=== PATIENT | female | born 1965 | race Caucasian/White ===

== ENCOUNTER 2016-05-15 12:17 | Emergency (ER) | payer MEDICARE, MEDICAID ==
[~2016-05-15 12:17] MED LIST: ADDERALL 30 MG30 MG PO; ALDACTONE100 MG PO; ALDACTONE25 MG PO; ATIVAN1 MG PO; BAYER CHEWABLE81 MG PO; BUPROPION XL150 MG PO; BUPROPION XL300 MG PO; BYSTOLIC2.5 MG PO; HUMIRA; HUMULIN R100 U/ML SC; HUMULIN R100 U/ML SQ; HYDROCODON-ACE1 EAC7 PO; ISOSORBIDE MONO30 M1 PO; LASIX20 MG PO; LEVEMIR100 U/M1 SQ; LIORESAL 10 MG10 MG PO; MEDROL DOSE PACK4 MG; MUPIROCIN22 GM TOPICAL; NOVOLOG100 U/M1 SQ; PHENERGAN25 M1 PO; PLAVIX75 MG PO; PROVENTIL HFA6.7 GM INH; ROBITUSSIN100 MG/5 M PO; TESSALON200 MG PO; TOUJEO SOL300 UNIT/1 SC; TREXALL5 MG PO; VICTOZA0.6 MG/0.1 SQ; ZITHROMAX TRI-500 MG; ZOFRAN4 MG PO; ZOFRAN8 MG PO
[2016-05-15 13:44] LABS: APPEARANCE CLOUDY (CLEAR); BILIRUBIN NEGATIVE (NEGATIVE); COLOR STRAW (YELLOW); GLUCOSE NEGATIVE (NEGATIVE); KETONE NEGATIVE (NEGATIVE); LEUKOCYTE ESTERASE 2+ (NEGATIVE); NITRITE NEGATIVE (NEGATIVE); PROTEIN TRACE mg/dL (NEGATIVE); UROBILINOGEN NORMAL (NORMAL)
[2016-05-15 13:59] LABS: BACTERIA MODERATE /hpf (NONE SEEN); EPITHELIAL CELLS 0-5 /hpf (0-5); RED CELLS - URINE 0-5 /hpf (0-5)
== END 2016-05-15 17:33 | disposition home or self-care (01) ==
LOC: D.ER 12:17
PROVIDERS: Emergency Medicine; Physician Assistant Medical
DX: Z48.00 Encounter for change or removal of nonsurgical wound dressing (principal); N39.0 Urinary tract infection, site not specified; I10 Essential (primary) hypertension; E11.9 Type 2 diabetes mellitus without complications; Z79.4 Long term (current) use of insulin; Z95.0 Presence of cardiac pacemaker

== ENCOUNTER 2016-09-05 13:51 | Emergency (ER) | payer MEDICARE, MEDICAID ==
[2016-09-05 15:30] LABS: BASOPHILS 0.3 % (0-2); EOSINOPHILS 1.1 % (0-7); HEMOGLOBIN 14.4 g/dL (12-16); IMMATURE GRANULOCYTES 0.7 % (0-5); MCH 29.9 pg (26.0-34.0); MCHC 33.5 g/dL (31.0-37.0); MCV 89.4 fL (80.0-100.0); MEAN PLATELET VOLUME 9.8 fL (7.4-10.4); MONOCYTES 6.2 % (2-11); NEUTROPHILS 55.7 % (40-80); PLATELET COUNT 183 10x3/uL (130-400); RBC 4.81 10x6/uL (4.00-5.40); RDW 13.6 % (11.5-14.5); WBC 8.7 10x3/uL (4.8-10.8)
[2016-09-05 16:08] LABS: ALBUMIN 3.5 g/dL (3.4-5.0); ALT (SGPT) 47 U/L (10-68); BILIRUBIN - TOTAL 0.63 mg/dL (0.2-1.3); CARBON DIOXIDE 23.4 mmol/L (21.0-32.0); CHLORIDE - SERUM 101 mmol/L (98-107); POTASSIUM - SERUM 3.9 mmol/L (3.5-5.1); PROTEIN - SERUM 7.2 g/dL (6.4-8.2); SODIUM 140 mmol/L (136-145)
[2016-09-05 16:18] LABS: APPEARANCE HAZY (CLEAR); BILIRUBIN NEGATIVE (NEGATIVE); COLOR YELLOW (YELLOW); GLUCOSE NEGATIVE (NEGATIVE); KETONE NEGATIVE (NEGATIVE); LEUKOCYTE ESTERASE 1+ (NEGATIVE); NITRITE POSITIVE (NEGATIVE); PROTEIN NEGATIVE (NEGATIVE); SPECIFIC GRAVITY 1.015 (1.005-1.020); UROBILINOGEN NORMAL (NORMAL)
[2016-09-05 16:20] LABS: WHITE CELLS - URINE 25-50 /hpf (0-5)
[2016-09-05 16:21] LABS: BACTERIA MANY /hpf (NONE SEEN)
[2016-09-05 16:35] LABS: ALKALINE PHOSPHATASE 98 U/L (46-116); CREATININE - SERUM 0.8 mg/dL (0.6-1.3); eGFR NON AFRICAN AMERICAN 79 mL/min (90-120)
[2016-09-05 16:38] LABS: GLUCOSE 251 mg/dL (74-106)
[2016-09-05 16:44] LABS: CALC OSMOLALITY 285 mosm/kg (275-300); UREA NITROGEN 11 mg/dL (7-18)
== END 2016-09-05 18:13 | disposition home or self-care (01) ==
LOC: D.ER 13:51
PROVIDERS: Emergency Medicine
DX: N39.0 Urinary tract infection, site not specified (principal); I10 Essential (primary) hypertension; E11.9 Type 2 diabetes mellitus without complications; Z79.4 Long term (current) use of insulin; Z95.0 Presence of cardiac pacemaker

== ENCOUNTER 2016-10-06 06:13 | Observation (INO) | payer MEDICARE, MEDICAID ==
--- NOTE | ~2016-10-06 | CN ---
PATIENT NAME:DIVYA PITT MEDICAL RECORD: [id number] : 61 LOCATION:TC.CL01 ADMIT DATE: 10/06/16 ACCOUNT: [id number] CONSULTING PHYSICIAN: AZEEM MARTINEZ MD REFERRING PHYSICIAN: AZEEM MARTINEZ MD DATE OF CONSULTATION: 10/06/2016 Cardiology Consultation ADMITTING DIAGNOSES: 1. Unstable angina. 2. Coronary artery disease. 3. Previous multivessel percutaneous transluminal coronary angioplasty stent. 4. Hypertension. 5. Hyperlipidemia. HISTORY OF PRESENT ILLNESS: Mrs. Meeks presents with chest pain that awoke her just like that of her previous angina. She has a history of coronary artery disease, multivessel PTCA stent, last stenting procedure was undertaken in January of last year. She has been pain-free until today. Her chest pain was initially 7/10. She has received multiple sublingual nitro and some morphine. She continues to have the chest pain. PHYSICAL EXAMINATION: GENERAL APPEARANCE: Well-nourished, well-developed, appears stated age. Level of distress, comfortable. PSYCHIATRIC: Mental status, alert, normal affect. Orientation, oriented to time, place and person. EYES: Lids and conjunctiva, noninjected. No discharge, no pallor. ENT: Lips, teeth, gums, normal dentition. Oropharynx, no cyanosis, no pallor. NECK: Carotid arteries, bilateral normal upstroke, no bruits, no thrills. JUGULAR VEINS: No jugular venous pressure or distention. CERVICAL LYMPH NODES: Nontender, nonenlarged. THYROID: Not enlarged. Nontender. No nodules. LUNGS: Respiratory effort, unlabored. CHEST: Normal curvature. No thoracic deformity. No chest wall tenderness. Percussion, resonant. Auscultation, clear. No wheezes, no rales, no rhonchi. CARDIOVASCULAR: Precordial exam, nondisplaced. No heaves or pericardial thrills. Rate and rhythm, regular. Heart sounds, normal S1, normal S2. No S3, no gallop, no rub. Systolic murmur, not heard. Diastolic murmur, not heard. EXTREMITIES: No cyanosis, no edema. Peripheral pulses, full and equal in all extremities, except as noted. No bruits appreciated. ABDOMEN: Soft, nondistended. Normal aorta. No bruit. Nontender. No masses. Liver, nontender, no hepatomegaly. Spleen, nontender, no splenomegaly. MUSCULOSKELETAL: No joint tenderness. No joint swelling. No erythema. NEUROLOGICAL: Normal gait, normal strength, normal tone. SKIN: Warm and dry. REVIEW OF SYSTEMS: The patient reports easy bruising but reports no swollen glands. The patient reports no fever, no night sweats, no significant weight gain, no significant weight loss. No significant exercise tolerance. The patient reports no dry eyes, no irritation, no vision change. Patient reports no difficulty hearing and no ear pain. Patient reports no frequent nose bleeds or nose and sinus problems. Patient reports on arm pain on exertion. No shortness of breath while lying down. No history of heart murmur. Patient CONSULT REPORT [id number] DIVYA PITT reports no cough, no wheezing or coughing up blood. Patient reports no abdominal pain, no vomiting. Normal appetite. No diarrhea and not vomiting blood. No nausea and no constipation. Patient reports no incontinence. No difficulty urinating. No hematuria. No increased frequency. Patient reports no muscle aches. No weakness, no arthralgias, no back pain. No swelling of the extremities. Patient reports no abnormal mole, no jaundice, no rashes. Reports no loss of consciousness. No weakness and no numbness. No seizures, dizziness, or headaches. The patient reports no depression, no sleep disturbance, feeling safe in a relationship and no alcohol abuse. Patient reports on fatigue. Reports no runny nose or sinus pressure. No itching, no hives, and no frequent sneezing. OVERALL IMPRESSION: Unstable angina. We will proceed with coronary angiography. Further care depends upon the findings of the angiography. TRANSINT:[id number] Voice Confirmation ID: [id number] DOCUMENT ID: [id number] AZEEM MARTINEZ MD CC: [id number] DICTATION DATE: 10/06/16 1139 REGIONAL BUSINESS DEVELOPMENT MANAGER: 10/06/16 1805 ADM IN [place] [id number] [place] [address]
--- NOTE | ~2016-10-06 | OP ---
PATIENT NAME: DIVYA PITT MEDICAL RECORD: [id number] :61 LOCATION:UmbertoZAK UmbertoCL01 ADMISSION DATE:10/06/16 SURGEON: AZEEM MARTINEZ MD OPERATION DATE: 10/06/16 DATE OF OPERATION: 10/06/2016 PROCEDURES: 1. PTCA stent LAD. 2. Intravascular ultrasound of the LAD. 3. Left heart catheterization. 4. Selective coronary angiography. 5. Left ventriculogram. INDICATION: Unstable angina. PROCEDURE IN DETAIL: After informed consent was obtained and after detailed explanation of risks, benefits as well as alternative therapies, the patient elected to proceed with angiogram and angioplasty. The right femoral area was prepped and draped in normal sterile fashion. The right femoral artery was cannulated via modified Seldinger technique with placement of 6-Amharic sheath. All catheters exchanged through this sheath. FINDINGS: The left ventriculogram was performed in standard 30-degree LARSEN view, reveals good cardiac wall motion throughout all segments. Overall ejection fraction estimated 60%. SELECTIVE CORONARY ANGIOGRAPHY: 1. Left main showed no significant angiographic disease. 2. Left anterior descending has previously placed stents with up to 75% in-stent restenosis in the mid vessel. 3. Left circumflex shows moderate irregularities, but no flow-limiting stenosis. 4. Right coronary has moderate irregularities, but no flow-limiting stenosis. PTCA STENT OF THE LEFT ANTERIOR DESCENDING: The stent used is a 2.5 x 18 mm [place] taken to 17 atmospheres. Result was 0% residual stenosis. OVERALL IMPRESSION: Successful percutaneous transluminal coronary angioplasty stent of the left anterior descending going from 75% initial stenosis to 0% residual stenosis. TRANSINT:[id number] Voice Confirmation ID: [id number] DOCUMENT ID: [id number] AZEEM MARTINEZ MD CC: [id number] DICTATION DATE: 10/06/16 1142 CIVIL ENGINEER IN TRAINING: 10/06/16 1827 ADM IN [id number] [place] [address]
--- NOTE | ~2016-10-06 | HEMODYNAMI ---
PATIENT:DIVYA PITT MEDICAL RECORD: [id number] : 61 LOCATION:[address] [facility]# [id number] ADMISSION DATE: 10/06/16 Generatedon:10/06/201611:41 Patient name: DIVYA PITT Patient #: [id number] : 1965 Date of study: 10/06/2016 Page: Of Hemodynamic Procedure Report Patient Data Patient Demographics Procedure consent was obtained First Name: DIVYA Gender: Female Last Name: YOANDY : 1965 Middle Initial: SOPHY Age: 51 year(s) Patient #: [id number] Race: SSN: [id number] Additional ID: [id number] Contact details [address]: [address] [place] [address] State: [place] City: [place] Zip code: [address] Past Medical History Allergies Allergen Reaction Date Comments Reported Other allergy 06/11/2014 Apple Juice, ASA, Motrin, Geodon, Anti-inflammatories, Depakote, Augmentin Other allergy 02/18/2016 Aspirin, Geodon, Ibuprofen, Steroids, Depakote Admission Admission Data Admission Date: 10/06/2016 Admission Time: 8:11 Room #: 2127 Procedure Procedure Types Cath Procedure Diagnostic Procedure [facility] w/Coronaries FFR/IVUS Intra-Coronary IVUS Initial PCI Procedure Coronary Stent Initial Miscellaneous Procedures Moderate Sedation up to 30 minutes Procedure Description Procedure Date Procedure Date: 10/06/2016 Procedure Start Time: 11:15 Procedure Staff Name Function Dilan Pisano MD Performing Physician Cornelio Weeks RT Monitor Yousif Nunn RT Scrub Mat Whitehead RN Nurse Procedure Data Cath Procedure Fluoroscopy Diagnostic fluoroscopy Total fluoroscopy Time: 3.9 time: 3.9 min min Diagnostic fluoroscopy Total fluoroscopy dose: dose: 316.02 mGy 316.02 mGy Contrast Material Contrast Material Type Amount (ml) Isovue 300 122 Entry Location Entry Primary Successful Side Size Upsize Upsize Entry Closure Succes sful Closure Location (Fr) 1 (Fr) 2 (Fr) Remarks Device Remarks Femoral Right 5 Fr 6 Fr Exoseal artery Short Diagnostic catheters Device Type Used For End Catheter Placement Cordis 5Fr Pigtail Left Coronary Catheter (MP) Angiography Cordis 5Fr JL 4.0 Left Coronary Catheter (MP) Angiography Cordis 5Fr 3DRC Catheter Right Coronary (MP) Angiography Procedure Medications Medication Administration Route Dosage Oxygen NC 2 l/min Heparin Flush Bag added to field 2 bags (1000units/500ml NS) 0.9% NaCl I.V. 100 ml/hr Fentanyl I.V. 50 mcg Versed I.V. 1 mg Fentanyl I.V. 50 mcg Heparin Bolus I.V. 4000 units Integrilin (Bolus I.V. 6.2 ml 2mg/ml) Integrilin (Bolus wasted 3.8 ml 2mg/ml) Hemodynamics Rest Heart Rate: 97 (bpm) Snapshots Pre Cath Intra NCS Post Cath Vital Signs Time Heart Resp SPO2 NIBP (mmHg) Rhythm Pain Sedation Rate (ipm) (%) Status Level (bpm) 11:07:32 97 17 92 152/95(118) NSR 0 (11) 10(A) , No pain 11:11:46 94 15 92 138/83(111) NSR 0 (11) 10(A) , No pain 11:15:58 99 19 94 138/88(113) NSR 0 (11) 10(A) , No pain 11:20:12 104 19 74 134/81(118) NSR 0 (11) 9(A) , No pain 11:24:16 106 18 75 132/86(108) NSR 0 (11) 9(A) , No pain 11:28:24 104 18 97 145/92(119) NSR 0 (11) 9(A) , No pain 11:32:38 102 17 98 151/84(115) NSR 0 (11) 9(A) , No pain 11:36:42 105 18 98 131/86(110) NSR 0 (11) 9(A) , No pain 11:39:09 103 17 99 138/87(110) NSR 0 (11) 9(A) , No pain Medications Time Medication Route Dose Verified Delivered Reason Notes Effectiveness by by 11:07:41 Oxygen NC 2 Mat Rivero Per physician l/min Ventura Whitehead RN RN 11:07:54 Heparin Flush added 2 Mat Mat used for Bag to bags Ventura Whitehead RN procedure (1000units/500ml field RN NS) 11:08:08 0.9% NaCl I.V. 100 Mat Mat Per physician ml/hr Ventura Whitehead RN RN 11:15:35 Fentanyl I.V. 50 Mat Mat for sedation mcg Ventura Whitehead RN RN 11:15:41 Versed I.V. 1 mg Mat Mat for sedation Ventura Whitehead RN RN 11:29:09 Fentanyl I.V. 50 Mat Mat for sedation mcg Ventura Whitehead RN RN 11:33:42 Heparin Bolus I.V. 4000 Mat Mat for units Ventura Whitehead RN anticoagulation RN 11:33:58 Integrilin I.V. 6.2 Mat Mat for (Bolus 2mg/ml) ml Ventura Whitehead RN antiplatelet RN therapy 11:34:11 Integrilin wasted 3.8 Mat Mat for (Bolus 2mg/ml) ml Ventura Whitehead RN antiplatelet RN therapy Procedure Log Time Note 10:40:44 Cornelio Weeks RT (R) (CV) sent for patient. Start room use. 10:57:06 Time tracking: Regular hours 10:57:11 Plan of Care:Hemodynamics will remain stable., Cardiac rhythm will remain stable., Comfort level will be maintained., Respiratory function will remain adequate., Patient/ family verbilizes understanding of procedure., Procedure tolerated without complication., Recovers from procedure without complications.. 10:57:18 Patient received from ED to CCL 3 Alert and oriented. Tansferred to table in Supine position. 10:57:19 Warm blankets applied, and isidra hugger turned on for patient comfort. 10:57:25 Correct patient and procedure confirmed by team. 10:57:27 Signed procedure consent form obtained from patient. 10:57:38 ECG and BP/O2 sat monitors applied to patient. 10:57:54 Full Disclosure recording started 10:57:55 - 10:58:01 H&P Date Dictated: 10/06/2016 Emergent; H&P N/A. 10:58:01 Pre-procedure instructions explained to patient. 10:58:02 Pre-op teaching completed and patient verbalized understanding. 10:58:03 Family in waiting room. 10:58:13 Patient NPO since Midnight. 10:58:18 Is the patient allergic to Iodine/contrast media? No. 10:58:20 Is patient on blood thinner?Yes 10:58:23 ACC The patient was administered the following blood thiners within the last 24 hours: ACCPlavix 10:58:25 Patient diabetic? No. 10:58:26 - 10:58:27 ----Pre-sedation anethsthesia assessment.---- 10:58:29 Previous problem with sedation/anesthesia? No ? 10:58:30 Snore? Yes 10:58:31 Sleep apnea? Yes 10:58:32 Deviated septum? No 10:58:34 Opens mouth fully? Yes 10:58:35 Sticks out tongue? Yes 11:03:02 Airway obstruction? Yes asthma 11:03:05 - 11:03:07 Pre procedure: right dorsailis pedis pulse Doppler 11:03:11 Sharps counted by scrub and verified by Cheryle 11:03:11 Alarms reviewed by Cleve Li 11:03:15 Right groin area was prepped with chlora-prep and draped in sterile fashion 11:03:21 Use device set Femoral Dx 11:03:23 Acist Syringe opened to sterile field. 11:03:23 Bag Decanter opened to sterile field. 11:03:24 Medline Cath Pack opened to sterile field. 11::24 Terumo 5Fr Rumney Sheath opened to sterile field. 11:03:25 St Zana 260cm J .035 wire opened to sterile field. 11::27 Acist Hand Control opened to sterile field. 11:: Acist Manifold opened to sterile field. 11:03:28 Diagnostic Infinity 5Fr Multipack catheter opened to sterile field. 11::28 Tegaderm 4 x 4 opened to sterile field. 11:06:33 Vital chart was started 11:07:41 Oxygen 2 l/min NC was administered by Mat Whitehead RN; Per physician; 11:07:54 Heparin Flush Bag (1000units/500ml NS) 2 bags added to field was administered by Mat Whitehead RN; used for procedure; 11:08:08 0.9% NaCl 100 ml/hr I.V. was administered by Mat Whitehead RN; Per physician; 11:08:12 Baseline sample Acquired. 11:08:16 Rhythm: sinus rhythm 11:10:08 IV patent on arrival in port with 0.9% NaCl at [facility]. 11:14:27 Physician arrived 11::28 --------ALL STOP TIME OUT------ 11:14:28 Final Timeout: patient, procedure, and site verified with staff and physician. All members of the team are in agreement. 11:14:30 Right groin site verified by team. 11:14:33 Physical assessment completed. ASA score P 2 - A patient with mild systemic disease as per Dilan Pisano MD. 11:14:36 Sedation plan: IV Moderate Sedation Versed, Fentanyl 11:15:02 Procedure started. 11:15:35 Fentanyl 50 mcg I.V. was administered by Mat Whitehead RN; for sedation ; 11:15:41 Versed 1 mg I.V. was administered by Mat Whitehead RN; for sedation; 11:15:57 Local anesthetic to right femoral artery with Lidocaine 2% by Dilan Pisano MD.INITIAL ACCESS ONLY 11:16:10 A 5 Fr sheath was inserted into the Right Femoral artery 11:18:53 Zero performed for pressure channel P1 11:19:04 Zero performed for pressure channel P1 11:20:43 A Cordis 5Fr Pigtail Catheter (MP) was advanced over the wire and used for Left Coronary Angiography. 11:22:22 LV angiography performed. 11:23:39 Catheter removed. 11:25:14 A Cordis 5Fr JL 4.0 Catheter (MP) was advanced over the wire and used for Left Coronary Angiography. 11:25:51 LCA angiography performed. 11:26:09 Sheath upsized to a 6 Fr Short. 11:26:30 Terumo 6Fr Rumney Sheath opened to sterile field. 11:26:31 Venaxis BasixCompak Inflation Kit opened to sterile field. 11:26:32 Ron Whisper J 300cm 0.014 guide wire opened to sterile field. 11:26:38 A Cordis 5Fr 3DRC Catheter (MP) was advanced over the wire and used for Right Coronary Angiography. 11:26:43 RCA angiography performed. 11:27:47 [place] IVUS Catheter opened to sterile field. 11:28:33 Cordis 6FR XBLAD 3.5 guide catheter opened to sterile field. 11:28:44 6 Fr xbad 3.5 guide catheter was inserted over the wire 11:29:05 whisper wire advanced. 11:29:09 Fentanyl 50 mcg I.V. was administered by Mat Whitehead RN; for sedation ; :29:26 Procedure type changed to Cath procedure, Diagnostic procedure, LHC, LH C w/Coronaries, FFR/IVUS, Intra-Coronary IVUS Initial, PCI procedure, Coronary Stent Initial, Miscellaneous Procedures, Moderate Sedation up to 30 minutes 11:33:42 Heparin Bolus 4000 units I.V. was administered by Mat Whitehead RN; for anticoagulation; 11:33:58 Integrilin (Bolus 2mg/ml) 6.2 ml I.V. was administered by Mat Whitehead RN; for antiplatelet therapy; 11:34:11 Integrilin (Bolus 2mg/ml) 3.8 ml wasted was administered by Mat Whitehead RN; for antiplatelet therapy; :34:36 Inflation Number: 1 A Amoret OTW 2.5 x 18 stent was prepped and advanced across the Mid LAD. The stent was deployed at 17 RENNY for 0:11 (min:sec). 11:36:36 Cordis 6Fr Exoseal opened to sterile field. 11:36:46 Sheath removed intact; hemostasis achieved with Exoseal to the Right Femoral artery. 11:36:49 Procedure ended.(Physican Out) 11:37:34 Fluoroscopy time 03.90 minutes. 11:37:38 Fluoroscopy dose: 316.02 mGy 11:37:38 Flurop Dose total: 316.02 11:37:43 Contrast amount:Isovue 300 122ml. 11:37:44 Sharps counted by scrub and verified by R.N. 11:37:46 Insertion/operative site no bleeding no hematoma. 11:37:50 Post-op/insertion site Right Femoral artery dressed using a 4 x 4 and Tegaderm. 11:37:55 Post right femoral artery:stable 11:37:56 Post Procedure Pulses reassessed and unchanged 11:38:02 Post-procedure physical assessment completed. ASA score P 2 - A patient with mild systemic disease as per Dilan Pisano MD. 11:38:05 Post procedure rhythm: unchanged. 11:38:07 Post procedure instruction explained to patient.Patient verbalizes understanding. 11:38:08 Procedure and supply charges have been captured, reviewed, submitted an d are correct. 11:41:05 Report given to Pre/Post Procedure Room. 11:41:10 Patient transfered to Pre/Post Procedure Room with Stretcher. 11:41:36 Vital chart was stopped Intervention Summary Intervention Notes Time ActionType Lesion and Equipment Action# Pressure Duration Attributes Used 11:34:36 Place stent Mid LAD Amoret OTW 1 17 00:11 2.5 x 18 stent Device Usage Item Name Manufacture Quantity Catalog Hospital Part Current Minimal Lot# / Number Charge Number Stock Stock Serial# Code Acist Acist 1 72318 740013 436380 989418 20 Syringe Medical Systems InVasc Therapeutics Bag Microtek 1 2002S 642688 05605 215356 5 DecSenex [employer] Inc. Medline Cardinal 1 [id number] 078695 71263 987786 5 Cath Brainsgate Terumo 5Fr Terumo 1 [id number] 197602 767057 991240 [address] Z[address] St Zana 1 629019 560809 163430 678577 30 260cm J .035 wire Acist Hand Acist 1 83896 532804 615351 658365 5 Control Medical Systems Inc Acist Acist 1 90033 403102 766263 313154 5 Manifold Medical Systems Inc Diagnostic Cardinal 1 [id number] 773089 30412 010655 30 Infinity Health 5Fr Multipack catheter Tegaderm 4 3M 1 1626W 877078 999492 351677 5 x 4 Cordis 5Fr Cardinal 1 222213 5 Pigtail Health Catheter (MP) Cordis 5Fr Cardinal 1 827661 5 JL 4.0 Health Catheter (MP) Terumo 6Fr Terumo 1 [id number] 145943 112352 466239 40 Rumney Sheath Merit Merit 1 [id number] 080272 472606 845779 15 CertiVox Medical Inflation Kit Ron Ron 1 [id number] 357497 388708 805451 5 Whisper J Vascular 300cm 0.014 guide wire Cordis 5Fr Cardinal 1 595841 5 3DRC Health Catheter (MP) [place] 1 [id number] 190666 007161 374264 8 [place] IVUS Catheter Cordis 6FR Cardinal 1 [id number] 708225 311352 767756 10 XBLAD 3.5 Health guide catheter Amoret OTW Medtronic 1 [id number] 238933 06225 683096 5 [id number] 2.5 x 18 stent Cordis 6Fr Cardinal 1 EX600 231718 430281 597187 10 [id number] [facility] Health Signature Audit [place] Stage Time Signature Unsigned Intra-Procedure 10/06/2016 Cornelio 11:41:33 AM Shuffield RT (R) (CV) Signatures Monitor : Cornelio Signature : Dbield RT Date : Time : [facility] [address] [place] [address]
[2016-10-06 06:55] LABS: BASOPHILS 0.2 % (0-2); EOSINOPHILS 1.4 % (0-7); HEMATOCRIT 40.7 % (36.0-48.0); HEMOGLOBIN 13.5 g/dL (12-16); IMMATURE GRANULOCYTES 0.5 % (0-5); LYMPHOCYTES 19.5 % (15-50); MCH 29.8 pg (26.0-34.0); MCHC 33.2 g/dL (31.0-37.0); MCV 89.8 fL (80.0-100.0); MEAN PLATELET VOLUME 9.2 fL (7.4-10.4); MONOCYTES 7.3 % (2-11); NEUTROPHILS 71.1 % (40-80); PLATELET COUNT 159 10x3/uL (130-400); RBC 4.53 10x6/uL (4.00-5.40); RDW 13.9 % (11.5-14.5); WBC 8.1 10x3/uL (4.8-10.8)
[2016-10-06 07:12] LABS: ALBUMIN 3.4 g/dL (3.4-5.0); ALKALINE PHOSPHATASE 83 U/L (46-116); ALT (SGPT) 59 U/L (10-68); BILIRUBIN - TOTAL 0.75 mg/dL (0.2-1.3); CALCIUM 8.4 mg/dL (8.5-10.1); CARBON DIOXIDE 27.6 mmol/L (21.0-32.0); CHLORIDE - SERUM 104 mmol/L (98-107); CREATININE - SERUM 0.5 mg/dL (0.6-1.3); SODIUM 140 mmol/L (136-145); UREA NITROGEN 12 mg/dL (7-18); eGFR NON AFRICAN AMERICAN > 90 mL/min (90-120)
[2016-10-06 07:15] LABS: CKMB 1.1 U/L (0.0-3.6); CREATINE KINASE 59 UL (21-215)
[2016-10-06 07:25] LABS: CALC OSMOLALITY 283 mosm/kg (275-300); GLUCOSE 196 mg/dL (74-106); TROPONIN-I < 0.017 ng/mL (0.000-0.060)
[2016-10-06] MEDS ORDERED: PLAVIX75 MG PO (12:15)
--- NOTE | 2016-10-06 12:15 | NUR ---
RESTING, AT SIDE, RIGHT GROIN CDI, NO HEMATOMA OR BLEEDING AT SITE
--- NOTE | 2016-10-06 12:45 | NUR ---
NO CHANGE IN RIGHT GROIN, REMAINS AT SIDE, DENIES CHEST PAIN
== END 2016-10-06 16:00 | disposition home or self-care (01) ==
LOC: D.ER 06:13 → D.M2 08:11 → D.CLR 08:11 → OBSVTIME 08:11 → D.CLR 16:00
PROVIDERS: Emergency Medicine; ADMIT Internal Medicine Interventional Cardiology
DX: I25.110 Atherosclerotic heart disease of native coronary artery with unstable angina pectoris (principal); I11.9 Hypertensive heart disease without heart failure; E78.5 Hyperlipidemia, unspecified; T82.855A Stenosis of coronary artery stent, initial encounter; Y84.0 Cardiac catheterization as the cause of abnormal reaction of the patient, or of later complication, without mention of misadventure at the time of the procedure
CPT/HCPCS: 93458; 92978; C9600

== ENCOUNTER 2016-10-07 23:32 | Emergency (ER) | payer MEDICARE, MEDICAID ==
[2016-10-08 00:13] LABS: HEMATOCRIT 38.5 % (36.0-48.0); HEMOGLOBIN 13.3 g/dL (12-16); LYMPHOCYTES 30.9 % (15-50); MCH 30.2 pg (26.0-34.0); MCHC 34.5 g/dL (31.0-37.0); MCV 87.5 fL (80.0-100.0); MEAN PLATELET VOLUME 8.5 fL (7.4-10.4); NEUTROPHILS 60.9 % (40-80); PLATELET COUNT 169 10x3/uL (130-400); RDW 13.5 % (11.5-14.5); WBC 8.2 10x3/uL (4.8-10.8)
[2016-10-08 00:31] LABS: ALBUMIN 3.4 g/dL (3.4-5.0); ALKALINE PHOSPHATASE 84 U/L (46-116); ALT (SGPT) 57 U/L (10-68); BILIRUBIN - TOTAL 0.74 mg/dL (0.2-1.3); CALCIUM 8.8 mg/dL (8.5-10.1); CARBON DIOXIDE 26.3 mmol/L (21.0-32.0); CHLORIDE - SERUM 103 mmol/L (98-107); CREATININE - SERUM 0.5 mg/dL (0.6-1.3); GLUCOSE 160 mg/dL (74-106); POTASSIUM - SERUM 3.9 mmol/L (3.5-5.1); PROTEIN - SERUM 7.5 g/dL (6.4-8.2); SODIUM 139 mmol/L (136-145); eGFR NON AFRICAN AMERICAN > 90 mL/min (90-120)
[2016-10-08 00:33] LABS: CALC OSMOLALITY 278 mosm/kg (275-300); CREATINE KINASE 72 UL (21-215); UREA NITROGEN 8 mg/dL (7-18)
[2016-10-08 00:34] LABS: TROPONIN-I < 0.017 ng/mL (0.000-0.060)
== END 2016-10-08 02:08 | disposition home or self-care (01) ==
LOC: D.ER 23:32
PROVIDERS: Family Medicine
DX: E66.9 Obesity, unspecified (principal); M79.1 Myalgia; J02.9 Acute pharyngitis, unspecified

== ENCOUNTER → 2016-11-28 18:32 | Outpatient (CLI) | payer MEDICARE, MEDICAID ==
[2016-11-30 07:25] LABS: PROLACTIN 6.5 ng/mL (4.8-23.3)
[2016-11-30 10:15] LABS: ACTH 6.8 pg/mL (7.2-63.3); HEPATITIS C ANTIBODY <0.1 (0.0-0.9)
== END | disposition home or self-care (01) ==
LOC: D.LABREF 18:32
PROVIDERS: Family Medicine
DX: E24.9 Cushing's syndrome, unspecified (principal); Z13.9 Encounter for screening, unspecified

== ENCOUNTER 2016-12-08 14:10 | Emergency (ER) | payer MEDICARE, MEDICAID | END 2016-12-08 18:02 | disposition home or self-care (01) | LOC: D.ER 14:10 | DX: R10.9 Unspecified abdominal pain (principal); N39.0 Urinary tract infection, site not specified; E11.9 Type 2 diabetes mellitus without complications; Z79.4 Long term (current) use of insulin; Z95.0 Presence of cardiac pacemaker; F17.200 Nicotine dependence, unspecified, uncomplicated ==

== ENCOUNTER 2016-12-15 17:40 | Emergency (ER) | payer MEDICARE, MEDICAID ==
[2016-12-15 19:02] LABS: BASOPHILS 0.3 % (0-2); EOSINOPHILS 0.3 % (0-7); HEMATOCRIT 48.2 % (36.0-48.0); HEMOGLOBIN 16.5 g/dL (12-16); IMMATURE GRANULOCYTES 0.4 % (0-5); LYMPHOCYTES 20.7 % (15-50); MCH 30.2 pg (26.0-34.0); MCHC 34.2 g/dL (31.0-37.0); MCV 88.1 fL (80.0-100.0); MEAN PLATELET VOLUME 9.3 fL (7.4-10.4); MONOCYTES 4.9 % (2-11); NEUTROPHILS 73.4 % (40-80); PLATELET COUNT 215 10x3/uL (130-400); RBC 5.47 10x6/uL (4.00-5.40); RDW 13.3 % (11.5-14.5)
[2016-12-15 19:15] LABS: ALBUMIN 4.1 g/dL (3.4-5.0); ALKALINE PHOSPHATASE 96 U/L (46-116); ALT (SGPT) 54 U/L (10-68); BILIRUBIN - TOTAL 0.67 mg/dL (0.2-1.3); CALC OSMOLALITY 270 mosm/kg (275-300); CALCIUM 10.4 mg/dL (8.5-10.1); CARBON DIOXIDE 27.2 mmol/L (21.0-32.0); CHLORIDE - SERUM 99 mmol/L (98-107); CREATININE - SERUM 0.8 mg/dL (0.6-1.3); POTASSIUM - SERUM 4.3 mmol/L (3.5-5.1); PROTEIN - SERUM 9.1 g/dL (6.4-8.2); SODIUM 135 mmol/L (136-145); UREA NITROGEN 11 mg/dL (7-18); eGFR NON AFRICAN AMERICAN 79 mL/min (90-120)
[2016-12-15 19:18] LABS: GLUCOSE 131 mg/dL (74-106)
[2016-12-15 19:22] LABS: APPEARANCE CLEAR (CLEAR); BILIRUBIN NEGATIVE (NEGATIVE); COLOR YELLOW (YELLOW); GLUCOSE NEGATIVE (NEGATIVE); KETONE NEGATIVE (NEGATIVE); NITRITE NEGATIVE (NEGATIVE); PROTEIN TRACE mg/dL (NEGATIVE); SPECIFIC GRAVITY 1.025 (1.005-1.020); UROBILINOGEN NORMAL (NORMAL)
[2016-12-15 19:33] LABS: AMYLASE - SERUM 57 U/L (25-115); LIPASE 267 U/L (73-393)
[2016-12-15 19:33] LABS: UDS - AMPHET NEGATIVE QUAL (NEGATIVE); UDS - BARB NEGATIVE QUAL (NEGATIVE); UDS - BENZO NEGATIVE QUAL (NEGATIVE); UDS - COCAINE NEGATIVE QUAL (NEGATIVE); UDS - OPIATE NEGATIVE QUAL (NEGATIVE); UDS - PCP NEGATIVE QUAL (NEGATIVE); UDS - THC NEGATIVE QUAL (NEGATIVE)
[2017-01-12] MEDS ORDERED: TOUJEO SOL300 UNIT/1 SC (04:15)
[2017-01-12] MEDS ORDERED: LITHIUM CARBON300 MG PO (04:17)
[2017-01-12] MEDS ORDERED: PROZAC (04:19)
[2017-01-13] MEDS ORDERED: COREG12.5 MG PO (15:04)
[2017-01-13] MEDS ORDERED: TOPAMAX100 MG PO ×2 (16:01→16:29)
== END 2016-12-15 21:19 | disposition home or self-care (01) ==
LOC: D.ER 17:40
PROVIDERS: Emergency Medicine; Family Medicine
DX: R11.10 Vomiting, unspecified (principal); I10 Essential (primary) hypertension; E11.9 Type 2 diabetes mellitus without complications; Z79.4 Long term (current) use of insulin; Z95.0 Presence of cardiac pacemaker; F17.200 Nicotine dependence, unspecified, uncomplicated

== ENCOUNTER 2016-12-24 19:17 | Emergency (ER) | payer MEDICARE, MEDICAID ==
[2017-01-12] MEDS ORDERED: TOUJEO SOL300 UNIT/1 SC (04:15)
[2017-01-12] MEDS ORDERED: LITHIUM CARBON300 MG PO (04:17)
[2017-01-12] MEDS ORDERED: PROZAC (04:19)
[2017-01-13] MEDS ORDERED: COREG12.5 MG PO (15:04)
[2017-01-13] MEDS ORDERED: TOPAMAX100 MG PO ×2 (16:01→16:29)
== END 2016-12-24 21:41 | disposition home or self-care (01) ==
LOC: D.ER 19:17
DX: R51 Headache (principal)

== ENCOUNTER → 2017-01-03 16:54 | Outpatient (CLI) | payer MEDICARE, MEDICAID ==
[~2017-01-03 16:54] MED LIST changes: +COREG12.5 MG PO; +LITHIUM CARBON300 MG PO; +PROAIR HFA8.5 GM INH; +PROZAC; +TOPAMAX100 MG PO; +ZANAFLEX6 MG PO
== END | disposition home or self-care (01) ==
LOC: D.RAD 16:54
DX: S29.8XXA Other specified injuries of thorax, initial encounter (principal); X58.XXXA Exposure to other specified factors, initial encounter; Y93.89 Activity, other specified; Y92.029 Unspecified place in mobile home as the place of occurrence of the external cause

== ENCOUNTER 2017-01-23 09:25 | Emergency (ER) | payer MEDICARE, MEDICAID ==
[2017-01-13 10:23] VITALS: BMI 27.4
[~2017-01-23 09:25] MED LIST changes: -PROAIR HFA8.5 GM INH; -ZANAFLEX6 MG PO
[2017-01-23 10:21] LABS: APPEARANCE CLEAR (CLEAR); COLOR YELLOW (YELLOW)
[2017-01-23 10:22] LABS: BILIRUBIN NEGATIVE (NEGATIVE); GLUCOSE NEGATIVE (NEGATIVE); KETONE NEGATIVE (NEGATIVE); NITRITE NEGATIVE (NEGATIVE); PROTEIN NEGATIVE (NEGATIVE); UROBILINOGEN NORMAL (NORMAL)
[2017-01-23 10:23] LABS: UDS - AMPHET NEGATIVE QUAL (NEGATIVE); UDS - BARB NEGATIVE QUAL (NEGATIVE); UDS - BENZO NEGATIVE QUAL (NEGATIVE); UDS - COCAINE NEGATIVE QUAL (NEGATIVE); UDS - OPIATE NEGATIVE QUAL (NEGATIVE); UDS - PCP NEGATIVE QUAL (NEGATIVE); UDS - THC NEGATIVE QUAL (NEGATIVE)
[2017-01-23 10:26] LABS: BASOPHILS 0.3 % (0-2); EOSINOPHILS 1.9 % (0-7); HEMATOCRIT 36.1 % (36.0-48.0); HEMOGLOBIN 12.3 g/dL (12-16); IMMATURE GRANULOCYTES 0.4 % (0-5); LYMPHOCYTES 28.7 % (15-50); MCH 30.2 pg (26.0-34.0); MCHC 34.1 g/dL (31.0-37.0); MCV 88.7 fL (80.0-100.0); MEAN PLATELET VOLUME 9.5 fL (7.4-10.4); MONOCYTES 5.4 % (2-11); NEUTROPHILS 63.3 % (40-80); PLATELET COUNT 179 10x3/uL (130-400); RBC 4.07 10x6/uL (4.00-5.40); RDW 13.7 % (11.5-14.5); WBC 7.2 10x3/uL (4.8-10.8)
[2017-01-23 10:38] LABS: ALBUMIN 3.1 g/dL (3.4-5.0); ALKALINE PHOSPHATASE 89 U/L (46-116); ALT (SGPT) 26 U/L (10-68); BILIRUBIN - TOTAL 0.26 mg/dL (0.2-1.3); CALC OSMOLALITY 287 mosm/kg (275-300); CALCIUM 8.7 mg/dL (8.5-10.1); CHLORIDE - SERUM 104 mmol/L (98-107); CREATININE - SERUM 0.7 mg/dL (0.6-1.3); POTASSIUM - SERUM 3.9 mmol/L (3.5-5.1); PROTEIN - SERUM 7.1 g/dL (6.4-8.2); SODIUM 139 mmol/L (136-145); UREA NITROGEN 15 mg/dL (7-18); eGFR NON AFRICAN AMERICAN > 90 mL/min (90-120)
[2017-01-23 10:39] LABS: GLUCOSE 265 mg/dL (74-106)
== END 2017-01-23 14:15 | disposition home or self-care (01) ==
LOC: D.ER 09:25
PROVIDERS: Emergency Medicine
DX: R41.82 Altered mental status, unspecified (principal); F10.129 Alcohol abuse with intoxication, unspecified; I10 Essential (primary) hypertension; E11.9 Type 2 diabetes mellitus without complications; Z79.4 Long term (current) use of insulin

== ENCOUNTER → 2017-02-05 17:54 | Outpatient (CLI) | payer MEDICARE, MEDICAID ==
[2017-01-13 10:23] VITALS: BMI 27.4
[~2017-02-05 17:54] MED LIST changes: +PROAIR HFA8.5 GM INH; +ZANAFLEX6 MG PO
== END | disposition home or self-care (01) ==
LOC: D.LABREF 17:54
DX: N39.0 Urinary tract infection, site not specified (principal)

== ENCOUNTER → 2017-02-13 15:20 | Outpatient (CLI) | payer MEDICARE, MEDICAID ==
[2017-01-13 10:23] VITALS: BMI 27.4
== END | disposition home or self-care (01) ==
LOC: D.CT 15:20
DX: I73.9 Peripheral vascular disease, unspecified (principal)

== ENCOUNTER 2017-03-20 06:59 | Outpatient (CLI) | payer MEDICARE, MEDICAID ==
[~2017-03-20] VITALS: Ht 154.9 cm; Wt 68.2 kg
--- NOTE | ~2017-03-20 | OP ---
PATIENT NAME: DIVYA PITT MEDICAL RECORD: [id number] :61 LOCATION:D.OPS ADMISSION DATE: SURGEON: MEDARDO VARNER MD DATE OF OPERATION: 03/20/2017 PREOPERATIVE DIAGNOSES: 1. Gastroesophageal reflux. 2. Dysphasia. 3. History of Negra fundoplication. 4. Family history of colon cancer. POSTOPERATIVE DIAGNOSES: 1. Gastroesophageal reflux. 2. Dysphasia. 3. History of Negra fundoplication. 4. Family history of colon cancer. 5. Three colon polyps, all sessile ranging in size from 6 mm to 1.5 cm. 6. Intact Negra fundoplication. 7. Rule out distal esophageal Littlejohn's. PROCEDURES: 1. Esophagogastroduodenoscopy with antral and distal esophageal biopsies. 2. Esophageal dilation with a xiwcnmc-edm-drevjhif balloon to 54-Syrian. 3. Total colonoscopy to cecum. 4. Hot biopsy forceps polypectomies times 3. SURGEON: Medardo Varner MD ENCEPHALOGRAPHER: None. BLOOD LOSS: Minimal. ANESTHESIA: General. COMPLICATIONS: None. General anesthesia was utilized with this patient due to her body habitus and very large neck. She has sleep apnea and is on CPAP. DESCRIPTION OF PROCEDURE: The patient was conveyed to the operating room electively on 03/20/2017. General anesthesia was induced by the anesthesia staff. A bite block was inserted. A gastroscope was inserted into the mouth. It was advanced easily into the hypopharynx. The esophagus was easily intubated as were the stomach and duodenum. Upon withdrawal, retroflexed and angulus views were obtained. An intact Negra fundoplication was identified without a recurrent hiatal hernia. Cold endoscopic antral biopsies were obtained to look for H. pylori. I withdrew into the cardia of the stomach. A gharjgf-xgs-nicweyrf balloon was advanced. I then sequentially dilated the entire length of the esophagus to 54-Syrian. The gastroscope and balloon dilator were then removed. I then re-advanced the gastroscope down the esophagus and into the stomach. There had been no evidence of false passage or perforation. The endoscope was then withdrawn under direct vision. OPERATIVE REPORT [id number] DIVYA PITT The patient was turned 180 degrees and placed in the Lr position. A digital rectal examination was performed. A colonoscope was inserted through the anus. It was easily advanced to the cecum. Upon withdrawal, I irrigated and aspirated extensively. The pullback was greater than a 16-minute pullback. The prep was adequate. I used a combination of normal imaging as well as narrow band imaging. Three colorectal polyps were identified and were removed in their entireties utilizing the hot biopsy forceps and polypectomy technique. A retroflexed view was obtained in the rectum. I then unretroflexed the scope and removed it under direct vision. I will see the patient in my office in 2-3 weeks. I am going to talk to her further about maximizing her medical treatment for the gastroesophageal reflux. TRANSINT:[id number] Voice Confirmation ID: [id number] DOCUMENT ID: [id number] MEDARDO VARNER MD at 0938 CC: [id number] DICTATION DATE: 03/20/17 1302 SALAD COUNTER ATTENDANT: 03/20/17 1432 DEP CLI 03/20/17 [facility] [address] [place] [address]
--- NOTE | ~2017-03-20 | HP ---
PATIENT: DIVYA PITT MEDICAL RECORD: [id number] ACCOUNT: [id number] LOCATION:[facility] : 61 ADMISSION DATE: 03/20/17 HISTORY AND PHYSICAL EXAMINATION CHIEF COMPLAINT: Reflux. HISTORY OF PRESENT ILLNESS: The patient has undergone a Negra fundoplication in the past and is still having symptomatic reflux. Due to a history of gastroparesis and gastric pacemaker and due to her body habitus and gastroesophageal reflux, we are going to do her operation in the OR under general endotracheal anesthesia. She has had some dysphagia as well. For that reason, we will perform an esophageal dilation. She has a family history of colon cancer and because of this, I am going to perform a colonoscopy. The risks, possible complications and alternatives to procedure were discussed with the patient. She elects to proceed. HOME MEDICATIONS AND ALLERGIES: Reviewed. SOCIAL HISTORY: She is a smoker, I advised her to quit smoking. PAST MEDICAL AND SURGICAL HISTORY: Asthma, COPD, sleep apnea on CPAP, history of myocardial infarction, history of coronary stents times 1, gastroparesis, history of gastric pacemaker insertion, history of kidney stones, arthritis, insulin-dependent diabetes mellitus, as well as fibromyalgia. PHYSICAL EXAMINATION: GENERAL: The patient does not appear acutely ill. She does appear chronically ill. The entire physical examination was performed in the presence of a female nurse. EARS: External ears appear normal. EYES: Extraocular movements are intact. NECK: Trachea is midline. CHEST: No intercostal retractions. PULMONARY: Mildly labored. No stridor. ABDOMEN: Protuberant, tympanitic, and nontender. IMPRESSION: 1. Dysphagia. 2. Gastroesophageal reflux. 3. Family history of colon cancer. PLAN: Will be EGD, esophageal dilation, as well as colonoscopy. TRANSINT:[id number] Voice Confirmation ID: [id number] DOCUMENT ID: [id number] HISTORY AND PHYSICAL [id number] DIVYA PITT ROBERT MD at 0938 CC: [id number] DICTATION DATE: 03/20/17 1250 VENDING MACHINE ATTENDANT: 03/20/17 1306 DEP CLI 03/20/17 [facility] [address] [place] [address]
[~2017-03-20 06:59] MED LIST changes: -PROAIR HFA8.5 GM INH; -ZANAFLEX6 MG PO
[2017-03-20 07:57] VITALS: BP 130/81; Ht 154.9 cm; Wt 68.2 kg
[2017-03-20 09:00] LABS: HEMATOCRIT 43.1 % (36.0-48.0); HEMOGLOBIN 14.6 g/dL (12-16); MCHC 33.9 g/dL (31.0-37.0); MCV 88.7 fL (80.0-100.0); MEAN PLATELET VOLUME 9.5 fL (7.4-10.4); RBC 4.86 10x6/uL (4.00-5.40); RDW 13.5 % (11.5-14.5); WBC 8.6 10x3/uL (4.8-10.8)
[2017-03-20 09:34] LABS: CALC OSMOLALITY 282 mosm/kg (275-300); CALCIUM 9.6 mg/dL (8.5-10.1); CARBON DIOXIDE 26.8 mmol/L (21.0-32.0); CHLORIDE - SERUM 100 mmol/L (98-107); CREATININE - SERUM 0.6 mg/dL (0.6-1.3); GLUCOSE 248 mg/dL (74-106); POTASSIUM - SERUM 3.9 mmol/L (3.5-5.1); SODIUM 138 mmol/L (136-145); UREA NITROGEN 10 mg/dL (7-18); eGFR NON AFRICAN AMERICAN > 90 mL/min (90-120)
== END 2017-03-20 14:40 | disposition home or self-care (01) ==
LOC: D.OPS 06:59 → D.RAD 08:00 → D.OPS 14:40
PROVIDERS: Anesthesiology
DX: E11.43 Type 2 diabetes mellitus with diabetic autonomic (poly)neuropathy (principal); K21.9 Gastro-esophageal reflux disease without esophagitis; R13.10 Dysphagia, unspecified; K63.5 Polyp of colon; F17.200 Nicotine dependence, unspecified, uncomplicated; J45.909 Unspecified asthma, uncomplicated; I10 Essential (primary) hypertension; I50.9 Heart failure, unspecified; I25.10 Atherosclerotic heart disease of native coronary artery without angina pectoris; J44.9 Chronic obstructive pulmonary disease, unspecified; G47.30 Sleep apnea, unspecified; Z01.812 Encounter for preprocedural laboratory examination

== ENCOUNTER 2017-03-21 01:42 | Emergency (ER) | payer MEDICARE, MEDICAID ==
[2017-03-20 07:57] VITALS: BMI 28.4
[2017-03-21 02:31] LABS: BASOPHILS 0.2 % (0-2); EOSINOPHILS 1.5 % (0-7); HEMATOCRIT 40.2 % (36.0-48.0); HEMOGLOBIN 13.7 g/dL (12-16); IMMATURE GRANULOCYTES 0.5 % (0-5); LYMPHOCYTES 33.8 % (15-50); MCHC 34.1 g/dL (31.0-37.0); MEAN PLATELET VOLUME 9.5 fL (7.4-10.4); MONOCYTES 5.9 % (2-11); NEUTROPHILS 58.1 % (40-80); PLATELET COUNT 172 10x3/uL (130-400); RBC 4.57 10x6/uL (4.00-5.40); RDW 13.3 % (11.5-14.5); WBC 8.1 10x3/uL (4.8-10.8)
[2017-03-21 02:39] LABS: ALBUMIN 3.1 g/dL (3.4-5.0); ALKALINE PHOSPHATASE 96 U/L (46-116); ALT (SGPT) 45 U/L (10-68); BILIRUBIN - TOTAL 0.39 mg/dL (0.2-1.3); CALC OSMOLALITY 285 mosm/kg (275-300); CALCIUM 9.2 mg/dL (8.5-10.1); CARBON DIOXIDE 32.6 mmol/L (21.0-32.0); CHLORIDE - SERUM 100 mmol/L (98-107); GLUCOSE 289 mg/dL (74-106); POTASSIUM - SERUM 3.8 mmol/L (3.5-5.1); PROTEIN - SERUM 7.1 g/dL (6.4-8.2); SODIUM 138 mmol/L (136-145); UREA NITROGEN 11 mg/dL (7-18); eGFR NON AFRICAN AMERICAN 79 mL/min (90-120)
[2017-03-21 02:40] LABS: CREATININE - SERUM 0.8 mg/dL (0.6-1.3)
== END 2017-03-21 05:35 | disposition home or self-care (01) ==
LOC: D.ER 01:42
PROVIDERS: Family Medicine
DX: F41.0 Panic disorder [episodic paroxysmal anxiety] (principal); G89.18 Other acute postprocedural pain; R05 Cough; J02.9 Acute pharyngitis, unspecified; R00.0 Tachycardia, unspecified; I10 Essential (primary) hypertension; E11.9 Type 2 diabetes mellitus without complications; Z79.4 Long term (current) use of insulin

== ENCOUNTER 2017-03-22 12:24 | Emergency (ER) | payer MEDICARE, MEDICAID ==
[2017-03-20 07:57] VITALS: BMI 28.4
[2017-03-22 13:25] LABS: BASOPHILS 0.3 % (0-2); EOSINOPHILS 2.9 % (0-7); HEMOGLOBIN 13.9 g/dL (12-16); IMMATURE GRANULOCYTES 0.5 % (0-5); LYMPHOCYTES 33.6 % (15-50); MCHC 33.9 g/dL (31.0-37.0); MCV 88.6 fL (80.0-100.0); MEAN PLATELET VOLUME 9.6 fL (7.4-10.4); MONOCYTES 5.7 % (2-11); PLATELET COUNT 162 10x3/uL (130-400); RBC 4.63 10x6/uL (4.00-5.40); RDW 13.2 % (11.5-14.5)
[2017-03-22 13:36] LABS: APPEARANCE CLEAR (CLEAR); BACTERIA MODERATE /hpf (NONE SEEN); BILIRUBIN NEGATIVE (NEGATIVE); COLOR YELLOW (YELLOW); EPITHELIAL CELLS 0-5 /hpf (0-5); GLUCOSE 1000 mg/dL (NEGATIVE); KETONE NEGATIVE (NEGATIVE); NITRITE NEGATIVE (NEGATIVE); PROTEIN NEGATIVE (NEGATIVE); RED CELLS - URINE OCC /hpf (0-5); UROBILINOGEN NORMAL (NORMAL); WHITE CELLS - URINE RARE /hpf (0-5)
[2017-03-22 13:59] LABS: ALBUMIN 3.5 g/dL (3.4-5.0); ALKALINE PHOSPHATASE 93 U/L (46-116); ALT (SGPT) 38 U/L (10-68); BILIRUBIN - TOTAL 0.39 mg/dL (0.2-1.3); CALC OSMOLALITY 288 mosm/kg (275-300); CALCIUM 9.1 mg/dL (8.5-10.1); CARBON DIOXIDE 25.9 mmol/L (21.0-32.0); CHLORIDE - SERUM 101 mmol/L (98-107); CREATININE - SERUM 0.6 mg/dL (0.6-1.3); GLUCOSE 325 mg/dL (74-106); POTASSIUM - SERUM 4.4 mmol/L (3.5-5.1); PROTEIN - SERUM 7.1 g/dL (6.4-8.2); SODIUM 139 mmol/L (136-145); UREA NITROGEN 6 mg/dL (7-18); eGFR NON AFRICAN AMERICAN > 90 mL/min (90-120)
== END 2017-03-22 20:38 | disposition home or self-care (01) ==
LOC: D.ER 12:24
PROVIDERS: Emergency Medicine
DX: R10.9 Unspecified abdominal pain (principal); I10 Essential (primary) hypertension; E11.9 Type 2 diabetes mellitus without complications

== ENCOUNTER 2017-04-03 15:55 | Inpatient (IN) | payer MEDICARE, MEDICAID ==
[~2017-04-03] VITALS: Ht 154.9 cm; Wt 69.5 kg
--- NOTE | ~2017-04-03 | CN ---
PATIENT NAME:DIVYA PITT MEDICAL RECORD: [id number] : 61 LOCATION:D.M2 D.2105 ADMIT DATE: 04/03/17 ACCOUNT: [id number] CONSULTING PHYSICIAN: TRAN VARNER MD REFERRING PHYSICIAN: DONOVAN BORJA DO DATE OF CONSULTATION: 04/04/2017 This is a consultation note addendum. CHIEF COMPLAINT: Pain. HISTORY OF PRESENT ILLNESS: The patient was admitted through the Emergency Room. The patient has pancreatitis. I have personally reviewed the CT images. I have personally reviewed the CT report. The patient has undergone a cholecystectomy in the past. She has not had a dramatic increase in her amylase and lipase. The patient is also very anxious. She has been having band-like abdominal pain. She has chronic abdominal pain and has gastroparesis and has a gastric pacemaker in place. Palpation and eating aggravate. Nothing alleviates. She describes her symptoms as severe. This is a consultation note addendum. For the typed portion of the consult note, please see the chart. This will include the past medical and surgical history, allergies, current medication, surgical history as well as family history. REVIEW OF SYSTEMS: Positive for nausea. No fever, no chills. Positive for abdominal pain. Positive for back pain. Positive for anxiety. No shortness of breath. Other review of systems is negative other than as is described above. PHYSICAL EXAMINATION: GENERAL: The patient appears chronically ill. Also appears acutely ill. VITAL SIGNS: Reviewed. The entire physical examination was performed with the presence of a female nurse. EARS: External ears appear normal. EYES: Extraocular movements are intact. NECK: Trachea is midline. CHEST: No intercostal retractions. PULMONARY: Nonlabored. No stridor. ABDOMEN: Tenderness in the epigastrium as well as the left upper quadrant. There is tenderness with guarding. No Rovsing sign. No peritonitis to percussion. No Cardenas sign. EXTREMITIES: No peripheral cyanosis. INTEGUMENT: No rash. No ulcerations. PSYCHIATRIC: Anxious affect. NEUROLOGIC: Nonfocal. No lethargy. She answers questions appropriately. Moves all extremities well. BACK: No thoracic kyphosis. LYMPHATICS: No lymphangitic streaking of the exposed extremities. IMPRESSION: Pancreatitis, likely a nonsurgical issue. PLAN: Serial abdominal examinations and serial laboratory studies. I am going to start her on a low fat diet. TRANSINT:[id number] Voice Confirmation ID: [id number] DOCUMENT ID: [id number] CONSULT REPORT [id number] DIVYA PITT, TRAN LUNA at 1131 CC: [id number] DICTATION DATE: 04/06/17 1421 POSSUM TRAPPER: 04/06/17 1501 DIS IN 04/06/17 [id number] [place] [address]
[2017-04-03] MEDS ORDERED: PROAIR HFA8.5 GM INH (16:54)
[2017-04-03] MEDS ORDERED: ZANAFLEX6 MG PO (16:55)
[2017-04-03 17:04] VITALS: BP 132/93; BMI 29.1
[2017-04-03 18:24] LABS: BASOPHILS 0.4 % (0-2); EOSINOPHILS 2.6 % (0-7); HEMATOCRIT 40.8 % (36.0-48.0); HEMOGLOBIN 13.5 g/dL (12-16); IMMATURE GRANULOCYTES 0.8 % (0-5); LYMPHOCYTES 35.2 % (15-50); MCH 29.3 pg (26.0-34.0); MCHC 33.1 g/dL (31.0-37.0); MCV 88.7 fL (80.0-100.0); MEAN PLATELET VOLUME 9.7 fL (7.4-10.4); MONOCYTES 6.9 % (2-11); NEUTROPHILS 54.1 % (40-80); PLATELET COUNT 191 10x3/uL (130-400); RDW 13.3 % (11.5-14.5); WBC 7.7 10x3/uL (4.8-10.8)
[2017-04-03 18:47] LABS: ALBUMIN 3.4 g/dL (3.4-5.0); ALKALINE PHOSPHATASE 82 U/L (46-116); ALT (SGPT) 36 U/L (10-68); AMYLASE - SERUM 47 U/L (25-115); BILIRUBIN - TOTAL 0.35 mg/dL (0.2-1.3); CALC OSMOLALITY 278 mosm/kg (275-300); CALCIUM 9.3 mg/dL (8.5-10.1); CARBON DIOXIDE 27.6 mmol/L (21.0-32.0); CHLORIDE - SERUM 101 mmol/L (98-107); CREATININE - SERUM 0.5 mg/dL (0.6-1.3); LIPASE 281 U/L (73-393); POTASSIUM - SERUM 3.7 mmol/L (3.5-5.1); PROTEIN - SERUM 7.4 g/dL (6.4-8.2); SODIUM 139 mmol/L (136-145); UREA NITROGEN 11 mg/dL (7-18); eGFR NON AFRICAN AMERICAN > 90 mL/min (90-120)
[2017-04-03 18:48] LABS: GLUCOSE 134 mg/dL (74-106)
[2017-04-03 22:06] VITALS: BP 137/83
[2017-04-04 01:10] VITALS: BP 109/60
[2017-04-04 05:07] VITALS: BP 128/79
[2017-04-04 05:14] LABS: APPEARANCE CLEAR (CLEAR); BILIRUBIN NEGATIVE (NEGATIVE); COLOR YELLOW (YELLOW); GLUCOSE NEGATIVE (NEGATIVE); KETONE NEGATIVE (NEGATIVE); NITRITE NEGATIVE (NEGATIVE); PROTEIN NEGATIVE (NEGATIVE); UROBILINOGEN NORMAL (NORMAL)
[2017-04-04 05:15] LABS: BACTERIA FEW /hpf (NONE SEEN); CALCIUM OXALATE CRYSTALS 0-5 /hpf (NONE SEEN); EPITHELIAL CELLS 0-5 /hpf (0-5); RED CELLS - URINE 0-5 /hpf (0-5); WHITE CELLS - URINE 0-5 /hpf (0-5)
[2017-04-04 05:22] LABS: ALBUMIN 3.4 g/dL (3.4-5.0); ALKALINE PHOSPHATASE 83 U/L (46-116); ALT (SGPT) 38 U/L (10-68); CALC OSMOLALITY 281 mosm/kg (275-300); CALCIUM 9.2 mg/dL (8.5-10.1); CARBON DIOXIDE 29.2 mmol/L (21.0-32.0); CHLORIDE - SERUM 101 mmol/L (98-107); GLUCOSE 148 mg/dL (74-106); LIPASE 425 U/L (73-393); POTASSIUM - SERUM 3.7 mmol/L (3.5-5.1); PROTEIN - SERUM 7.3 g/dL (6.4-8.2); SODIUM 140 mmol/L (136-145); UREA NITROGEN 13 mg/dL (7-18)
[2017-04-04 05:23] LABS: AMYLASE - SERUM 59 U/L (25-115); CREATININE - SERUM 0.7 mg/dL (0.6-1.3); eGFR NON AFRICAN AMERICAN > 90 mL/min (90-120)
[2017-04-04 05:35] LABS: BASOPHILS 0.1 % (0-2); EOSINOPHILS 2.8 % (0-7); HEMATOCRIT 40.8 % (36.0-48.0); HEMOGLOBIN 13.4 g/dL (12-16); IMMATURE GRANULOCYTES 0.7 % (0-5); LYMPHOCYTES 34.2 % (15-50); MCH 29.2 pg (26.0-34.0); MCHC 32.8 g/dL (31.0-37.0); MCV 88.9 fL (80.0-100.0); MEAN PLATELET VOLUME 9.7 fL (7.4-10.4); MONOCYTES 6.9 % (2-11); NEUTROPHILS 55.3 % (40-80); PLATELET COUNT 189 10x3/uL (130-400); RBC 4.59 10x6/uL (4.00-5.40); RDW 13.4 % (11.5-14.5); WBC 8.5 10x3/uL (4.8-10.8)
[2017-04-04 08:19] VITALS: BP 131/83
[2017-04-04 12:21] VITALS: BP 109/66
[2017-04-04 16:08] VITALS: BP 143/88
[2017-04-04 21:59] VITALS: BP 118/63
[2017-04-05 01:46] VITALS: BP 116/67
[2017-04-05 05:24] VITALS: BP 110/57
[2017-04-05 08:30] VITALS: BP 124/87
[2017-04-05 11:28] VITALS: BP 92/56
[2017-04-05 13:55] VITALS: Ht 154.9 cm; Wt 69.5 kg
[2017-04-05 21:37] VITALS: BP 114/76
[2017-04-06 01:49] VITALS: BP 127/77
[2017-04-06 05:36] VITALS: BP 106/60
[2017-04-06 08:23] VITALS: BP 115/64
[2017-04-06 10:16] LABS: ALKALINE PHOSPHATASE 78 U/L (46-116); ALT (SGPT) 38 U/L (10-68); AMYLASE - SERUM 46 U/L (25-115); BILIRUBIN - TOTAL 0.48 mg/dL (0.2-1.3); CALC OSMOLALITY 286 mosm/kg (275-300); CALCIUM 8.7 mg/dL (8.5-10.1); CARBON DIOXIDE 30.9 mmol/L (21.0-32.0); CHLORIDE - SERUM 100 mmol/L (98-107); CREATININE - SERUM 0.7 mg/dL (0.6-1.3); GLUCOSE 258 mg/dL (74-106); LIPASE 301 U/L (73-393); POTASSIUM - SERUM 3.6 mmol/L (3.5-5.1); PROTEIN - SERUM 6.5 g/dL (6.4-8.2); SODIUM 140 mmol/L (136-145); UREA NITROGEN 11 mg/dL (7-18); eGFR NON AFRICAN AMERICAN > 90 mL/min (90-120)
[2017-04-06 10:28] LABS: BASOPHILS 0.3 % (0-2); EOSINOPHILS 3.5 % (0-7); HEMATOCRIT 37.4 % (36.0-48.0); HEMOGLOBIN 12.2 g/dL (12-16); IMMATURE GRANULOCYTES 0.6 % (0-5); MCH 29.5 pg (26.0-34.0); MCHC 32.6 g/dL (31.0-37.0); MCV 90.6 fL (80.0-100.0); MEAN PLATELET VOLUME 9.5 fL (7.4-10.4); MONOCYTES 7.2 % (2-11); NEUTROPHILS 53.4 % (40-80); RBC 4.13 10x6/uL (4.00-5.40); RDW 13.3 % (11.5-14.5); WBC 6.8 10x3/uL (4.8-10.8)
[2017-04-06 10:31] LABS: PLATELET COUNT 145 10x3/uL (130-400)
[2017-04-06 12:14] VITALS: BP 105/55
== END 2017-04-06 16:52 | disposition home or self-care (01) | DRG 440 ==
LOC: D.MS 15:55 → D.M2 16:41
PROVIDERS: Family Medicine
DX: K85.90 Acute pancreatitis without necrosis or infection, unspecified (principal); K76.0 Fatty (change of) liver, not elsewhere classified; I11.0 Hypertensive heart disease with heart failure; I50.9 Heart failure, unspecified; J44.9 Chronic obstructive pulmonary disease, unspecified; E11.40 Type 2 diabetes mellitus with diabetic neuropathy, unspecified; Z79.4 Long term (current) use of insulin; Z86.73 Personal history of transient ischemic attack (TIA), and cerebral infarction without residual deficits; Z87.891 Personal history of nicotine dependence

== ENCOUNTER 2017-07-10 18:55 | Observation (INO) | payer MEDICARE, MEDICAID ==
[2017-04-05 13:55] VITALS: BMI 29.2
--- NOTE | ~2017-07-10 | HEMODYNAMI ---
PATIENT:DIVYA PITT MEDICAL RECORD: [id number] : 61 LOCATION:[facility]# [id number] ADMISSION DATE: 07/10/17 Generatedon:07/11/201714:59 Patient name: DIVYA PITT Patient #: [id number] : 1965 Date of study: 07/11/2017 Page: Of Hemodynamic Procedure Report Patient Data Patient Demographics Procedure consent was obtained First Name: DIVYA Gender: Female Last Name: YOANDY : 1965 Middle Initial: SOPHY Age: 52 year(s) Patient #: [id number] Race: SSN: [id number] Additional ID: [id number] Contact details [address]: [address] [place] [address] State: [place] City: [place] Zip code: [address] Past Medical History Allergies Allergen Reaction Date Comments Reported Other allergy 06/11/2014 Apple Juice, ASA, Motrin, Geodon, Anti-inflammatories, Depakote, Augmentin Other allergy 02/18/2016 Aspirin, Geodon, Ibuprofen, Steroids, Depakote Other allergy 07/11/2017 PCN, NSAIDS, Amoxicillin, aspirin, coconut, divalproex sodium, ibuprofen, menthol, meperidine, potassium clavulante, ziprasidone HCL, ziprasidone mesylate, apple juice. Admission Admission Data Admission Date: 07/10/2017 Admission Time: 21:49 Admit Source: Emergency department Room #: D.E10 Lab Results Lab Result Date: 07/11/2017 Lab Result Time: 4:20 Biochemistry Name Units Result Min Max BUN mg/dl 11 --(-*--)-- 7 18 Creatinine mg/dl 0.6 --(*---)-- 0.6 1.3 CBC Name Units Result Min Max Hematocrit % 37.9 *-(----)-- 42 54 Hemoglobin g/dl 12.8 -*(----)-- 13.5 17.5 Procedure Procedure Types Cath Procedure Diagnostic Procedure [facility] w/Coronaries Sedation Charges Moderate Sedation up to 15 minutes PCI Procedure Coronary Stent Coronary Stent Initial Procedure Description Procedure Date Procedure Date: 07/11/2017 Procedure Start Time: 14:23 Procedure End Time: 14:57 Procedure Staff Name Function Joe Ambrocio RT Monitor Pau Rader RT Scrub Leroy Vanessa RN Nurse Dayron Jason MD Performing Physician Procedure Data Cath Procedure Fluoroscopy Diagnostic fluoroscopy Total fluoroscopy Time: 55 time: 55 min min Diagnostic fluoroscopy Total fluoroscopy dose: 805 dose: 805 mGy mGy Contrast Material Contrast Material Type Amount (ml) Isovue 300 94 Entry Location Entry Primary Successful Side Size Upsize Upsize Entry Closure Succes sful Closure Location (Fr) 1 (Fr) 2 (Fr) Remarks Device Remarks Femoral Right 5 Fr 6 Fr Exoseal artery Short Estimated blood loss: 10 ml Diagnostic catheters Device Type Used For End Catheter Placement MULTIPACK JL 4.0 5Fr Procedure catheter MULTIPACK 3DRC 5Fr Procedure catheter MULTIPACK Pigtail 5 Fr Procedure catheter Procedure Complications No complications Procedure Medications Medication Administration Route Dosage 0.9% NaCl I.V. 100 ml/hr Oxygen etCO2 Nasal cannula 2 l/min Heparin Flush Bag added to field 2 bags (1000units/500ml NS) Lidocaine 2% added to field 20 Versed I.V. 1 mg Fentanyl I.V. 50 mcg Versed I.V. 1 mg Fentanyl I.V. 50 mcg Heparin Bolus I.V. 5000 units Integrilin (Bolus I.V. 6.2 ml 2mg/ml) Integrilin (Bolus wasted 3.8 ml 2mg/ml) Plavix P.O. 300 mg Hemodynamics Rest HGB: 12.8 (g/dl) Heart Rate: 83 (bpm) Pressure Samples Time Site Value (mmHg) Purpose Heart Use Rate(bpm) 14:29 LV 151/13,16 Snapshot 93 Gradients Valve Time Site Site Mean SEP/DFP Peak To Heart Use 1 2 (mmHg) (sec/min) Peak Rate (mmHg) (bpm) Aortic 14:30 LV AO 89 Snapshots Pre Cath Intra NCS Post Cath Vital Signs Time Heart Resp SPO2 etCO2 NIBP (mmHg) Rhythm Pain Sedation Rate (ipm) (%) (mmHg) Status Level (bpm) 14:12:31 87 15 94 0 140/93(117) NSR 0 (11) 10(A) , No pain 14:17:11 85 15 92 0 128/85(118) NSR 0 (11) 10(A) , No pain 14:21:52 84 15 93 0 139/84(125) NSR 0 (11) 10(A) , No pain 14:26:33 87 14 94 1.5 138/88(112) NSR 0 (11) 9(A) , No pain 14:31:15 87 13 96 17.2 145/84(122) NSR 0 (11) 9(A) , No pain 14:36:00 86 15 96 24 145/83(104) NSR 0 (11) 9(A) , No pain 14:40:43 89 20 98 18 146/95(124) NSR 0 (11) 10(A) , No pain 14:45:27 86 16 894 18 154/90(118) NSR 0 (11) 10(A) , No pain 14:50:12 85 19 97 24 159/87(127) NSR 0 (11) 10(A) , No pain 14:54:55 103 15 87 0 No Cuff NSR 0 (11) 10(A) , No pain Medications Time Medication Route Dose Verified Delivered Reason Notes Effectiveness by by 14:10:57 0.9% NaCl I.V. 100 Leroy Leroy Per physician ml/hr Otf Vanessa RN RN 14:11:16 Oxygen etCO2 2 Leroy Leroy Per physician Nasal l/min Otf Vanessa cannula RN RN 14:11:28 Heparin Flush added 2 Leroy Leroy used for Bag to bags Otf Vanessa procedure (1000units/500ml field TERAN RN NS) 14:11:39 Lidocaine 2% added 20ml Leroy Leroy for local to vial Otf Vanessa anesthetic field TERAN RN 14:20:23 Versed I.V. 1 mg Leroy Leroy for sedation Otf Vanessa RN RN 14:20:41 Fentanyl I.V. 50 Leroy Leroy for sedation wei Vanessa RN RN 14:28:32 Versed I.V. 1 mg Leroy Leroy for sedation Otf Vanessa RN RN 14:28:37 Fentanyl I.V. 50 Leroy Leroy for sedation mcg Otf Vanessa RN RN 14:36:56 Heparin Bolus I.V. 5000 Leroy Harper for units Otf Vanessa anticoagulation RN RN 14:37:17 Integrilin I.V. 6.2 Leroy Harper for (Bolus 2mg/ml) ml Otf Vanessa antiplatelet RN RN therapy 14:37:30 Integrilin wasted 3.8 Leroy Leroy to sharp's (Bolus 2mg/ml) ml Otf Vanessa RN RN 14:48:47 Plavix P.O. 300 Leroy Harper for mg Otf Vanessa antiplatelet RN RN therapy Procedure Log Time Note 13:53:41 Informed consent obtained and on chart 13:53:44 Admit Source: Emergency department 13:54:11 Diagnostic Cath status Elective 13:54:14 Leroy Vanessa RN sent for patient. Start room use. 13:54:16 Time tracking: Regular hours (M-F 7:00 - 5:00) 13:54:19 Plan of Care:Hemodynamics will remain stable., Cardiac rhythm will remain stable., Comfort level will be maintained., Respiratory function will remain adequate., Patient/ family verbilizes understanding of procedure., Procedure tolerated without complication., Recovers from procedure without complications.. 14:01:28 H&P Date Dictated: 07/11/2017 Within 30 days and on chart.. 14:01:35 Patient received from ED to CCL 1 Alert and oriented. Tansferred to table in Supine position. 14:01:36 Warm blankets applied, and isidra hugger turned on for patient comfort. 14:01:36 Correct patient and procedure confirmed by team. 14:01:37 ECG and BP/O2 sat monitors applied to patient. 14:10:57 0.9% NaCl 100 ml/hr I.V. was administered by Leroy Vanessa RN; Per physician; 14:11:16 Oxygen 2 l/min etCO2 Nasal cannula was administered by Leroy Vanessa RN; Per physician; 14:11:28 Heparin Flush Bag (1000units/500ml NS) 2 bags added to field was administered by Leroy Vanessa RN; used for procedure; 14:11:39 Lidocaine 2% 20ml vial added to field was administered by Leroy Vanessa RN; for local anesthetic; 14:11:41 Vital chart was started 14:13:19 Baseline sample Acquired. 14:13:23 Rhythm: sinus rhythm 14:13:37 Pre-procedure instructions explained to patient. 14:13:38 Pre-op teaching completed and patient verbalized understanding. 14:13:39 Family in waiting room. 14:13:44 Patient NPO since Midnight. 14:16:40 Patient allergic to Other allergyPCN, NSAIDS, Amoxicillin, aspirin, coconut, divalproex sodium, ibuprofen, menthol, meperidine, potassium clavulante, ziprasidone HCL, ziprasidone mesylate, apple juice. 14:16:41 Is the patient allergic to Iodine/contrast media? No. 14:16:43 Is patient on blood thinner?No 14:16:45 Patient diabetic? Yes. 14:16:46 If diabetic: On Metformin? No 14:16:51 Previous problem with sedation/anesthesia? No ? 14:16:52 Snore? Yes 14:16:53 Sleep apnea? Yes 14:16:54 Deviated septum? No 14:16:56 Opens mouth fully? Yes 14:16:58 Sticks out tongue? Yes 14:17:16 Airway obstruction? Yes COPD, Asthma 14:17:19 Dentures? No ? 14:17:22 Pre procedure: right dorsailis pedis pulse 1+ Palpable, but thready & weak; easily obliterated 14:17:24 Patient pain scale 8/10 ?. 14:17:28 IV patent on arrival in port with 0.9% NaCl at O. 14:18:30 Lab Result : BUN 11 mg/dl 14:18:30 Lab Result : Hemoglobin 12.8 g/dl 14:18:30 Lab Result : Creatinine 0.6 mg/dl 14:18:30 Lab Result : Hematocrit 37.9 % 14:18:37 Lab results completed and on chart. 14:18:42 Right groin area was prepped with chlora-prep and draped in sterile fashion 14:18:43 Alarms reviewed by R. N. 14:18:43 Sharps counted by scrub and verified by R.N. 14:18:46 Use device set Femoral Dx 14:18:47 ACIST Syringe (76750) opened to sterile field. 14:18:48 Bag Decanter (2002S) opened to sterile field. 14:18:54 ACIST Hand Control (51722) opened to sterile field. 14:18:54 ACIST Manifold (69127) opened to sterile field. 14:19:07 Tegaderm 4 x 4 (1626W) opened to sterile field. 14:19:13 Medline Cath Pack ([id number]) opened to sterile field. 14:19:13 DIAGNOSTIC WIRE .035 260cm J wire (344560) opened to sterile field. 14:19:14 DIAGNOSTIC Multipack 5Fr catheter set (ZJ8412) opened to sterile field. 14:19:19 SHEATH Prelude 5Fr 0.035 (ENR-2Z-65-035) opened to sterile field. 14::32 Physician arrived 14::33 --------ALL STOP TIME OUT------ ::33 Final Timeout: patient, procedure, and site verified with staff and physician. All members of the team are in agreement. 14:19:35 Right groin site verified by team. 14:19:37 Physical assessment completed. ASA score P 2 - A patient with mild systemic disease as per Joe Ambrocio RT(R). 14:19:40 Sedation plan: IV Moderate Sedation Medication:Versed, Fentanyl 14::43 Zero performed for pressure channel P1 14:20:23 Versed 1 mg I.V. was administered by Leroy Vanessa RN; for sedation; 14::41 Fentanyl 50 mcg I.V. was administered by Leroy Vanessa RN; for sedation; 14:23:00 Procedure started. 14:23:00 Full Disclosure recording started 14:23:03 Local anesthetic to right femoral artery with Lidocaine 2% by Dayron Jason MD.INITIAL ACCESS ONLY 14:24:35 A 5 Fr sheath was inserted into the Right Femoral artery 14:25:00 A MULTIPACK JL 4.0 5Fr catheter was advanced over the wire and used for Procedure. 14:26:06 LCA angiography performed. 14:27:07 Catheter exchanged over wire. 14:27:23 A MULTIPACK 3DRC 5Fr catheter was advanced over the wire and used for Procedure. 14:27:32 SHEATH Prelude 6Fr 0.035 (QDI-5I-59-035) opened to sterile field. 14:28:21 RCA angiography performed. 14:28:28 A MULTIPACK Pigtail 5 Fr catheter was advanced over the wire and used for Procedure. 14:28:32 Versed 1 mg I.V. was administered by Leroy Vanessa RN; for sedation; 14:28:37 Fentanyl 50 mcg I.V. was administered by Leroy Vanessa RN; for sedation; 14:29:51 LV gram done using LARSEN 14:29:54 Injector settings: Ml/sec: 10, Volume: 20, 14:30:05 EF : 55 % 14:31:58 Catheter removed. 14:32:18 INFLATOR Merit BasixCompak (BN4089) opened to sterile field. 14:32:27 WHISPER 300cm guide wire ([id number]) opened to sterile field. 14:32:57 Sheath upsized to a 6 Fr Short. 14:35:34 GUIDE 6FR XBLAD 4.0 catheter ([id number]) opened to sterile field. 14:35:42 6 Fr xblad 4 guide catheter was inserted over the wire 14:35:54 whisper wire advanced. 14:36:56 Heparin Bolus 5000 units I.V. was administered by Leroy Vanessa RN; for anticoagulation; 14:37:17 Integrilin (Bolus 2mg/ml) 6.2 ml I.V. was administered by Leroy Vanessa RN; for antiplatelet therapy; 14:37:30 Integrilin (Bolus 2mg/ml) 3.8 ml wasted was administered by Leroy Vanessa RN; to sharp's; 14:39:31 Wire removed. unable to cross lesion. 14:40:34 COUGAR 300cm guide wire ([id number]) opened to sterile field. 14:42:48 Place stent Inflation Number: 1 A TANMAY OTW 2.5 x 12 stent ([id number]) was prepped and advanced across the Dist LAD. The stent was deployed at 14 RENNY for 0:10 (min:sec). 14:44:11 Stent catheter was removed intact over wire. 14:45:13 EXOSEAL 6Fr (EX600) opened to sterile field. 14:46:26 Place stent Inflation Number: 2 A TANMAY OTW 2.5 x 15 stent ([id number]) was prepped and advanced across the Dist LAD. The stent was deployed at 14 RENNY for 0:45 (min:sec). 14:46:28 Stent catheter was removed intact over wire. 14:46:29 Wire removed. 14:46:29 Guide catheter removed. 14:47:10 Sheath removed intact; hemostasis achieved with Exoseal to the Right Femoral artery. 14:47:12 Procedure ended.(Physican Out) 14:47:44 Fluoroscopy time 55.00 minutes. 14:47:52 Flurop Dose total: 805 14:47:52 Fluoroscopy dose: 805 mGy 14:47:59 Contrast amount:Isovue 300 94ml. 14:48:01 Sharps counted by scrub and verified by R.N. 14:48:02 Insertion/operative site no bleeding no hematoma. 14:48:04 Post-op/insertion site Right Femoral artery dressed using a 4 x 4 and Tegaderm. 14:48:08 Post right femoral artery:stable, soft, clean and dry 14:48:47 Plavix 300 mg P.O. was administered by Leroy Vanessa RN; for antiplatelet therapy; 14:50:54 Post Procedure Pulses reassessed and unchanged 14:51:00 Post-procedure physical assessment completed. ASA score P 2 - A patient with mild systemic disease as per Dayron Jason MD. 14:51:08 Post procedure rhythm: unchanged. 14:51:10 Estimated blood loss: 10 ml 14:51:12 Post procedure instruction explained to patient.Patient verbalizes understanding. 14:51:20 Patient needs reinforcement of post procedure teaching. 14:51:33 Procedure type changed to Cath procedure, Diagnostic procedure, LHC, LHC w/Coronaries, Sedation Charges, Moderate Sedation up to 15 minutes, PCI procedure, Coronary Stent, Coronary Stent Initial 14:57:37 Procedure and supply charges have been captured, reviewed, submitted and are correct. 14:57:40 Procedure Complication : No complications 14:57:42 Vital chart was stopped 14:57:43 See physician's report for complete and final results. 14:57:44 Report given to Pre/Post Procedure Room. 14:57:46 Patient transfered to Pre/Post Procedure Room with Stretcher. 14:57:52 Procedure ended. 14:57:52 Full Disclosure recording stopped 14:58:01 End room use (Document Last) Intervention Summary Intervention Notes Time ActionType Lesion and Equipment Action# Pressure Duration Attributes Used 14:42:48 Place stent Dist LAD TANMAY OTW 2.5 1 14 00:10 x 12 stent ([id number]) 14:46:26 Place stent Dist LAD TANMAY OTW 2.5 2 14 00:45 x 15 stent ([id number]) Device Usage Item Name Manufacture Quantity Catalog Number Hospital Part Current Minimal Lot# / Charge Number Stock Stock Serial# Code ACIST Syringe Acist 1 91781 [id number] 097026 [id number] 20 (07459) Medical Systems [employer] Bag Decanter Microtek 1 2001S 768835 32508 541096 5 (2001S) Medical Inc. ACIST Hand Acist 1 20190 548854 163799 253555 5 Control (01261) Medical Systems Inc ACIST Manifold Acist 1 65794 390751 056519 480039 5 (86612) [employer] Tegaderm 4 x 4 3M 1 1626W 010485 680667 312743 5 (1626W) Medline Cath Cardinal 1 [id number] 879898 69494 304753 5 ROSTR ([id number]) DIAGNOSTIC WIRE St Zana 1 922614 800061 882351 879833 30 .035 260cm J wire (150605) DIAGNOSTIC Cardinal 1 TR9640 275619 22473 681003 30 Multipack 5Fr Health catheter set (SA2126) SHEATH Prelude Merit 1 RNP-0U-14-035 236761 026334 313431 5 5Fr 0.035 Medical (MMZ-2C-56-035) MULTIPACK JL Cardinal 1 899438 5 4.0 5Fr Health catheter MULTIPACK 3DRC Cardinal 1 606309 5 5Fr catheter Health SHEATH Prelude Merit 1 UMS-4B-33-35 798128 1334773 949527 5 6Fr 0.035 Medical (AVC-9L-17-035) MULTIPACK Cardinal 1 103315 5 Pigtail 5 Fr Health catheter INFLATOR Merit Merit 1 NW4235 801728 866652 124618 15 BasixHigh [employer] Medical (WR2778) WHISPER 300cm Ron 1 [id number] 954534 908504 795379 5 guide wire Vascular ([id number]) GUIDE 6FR XBLAD Cardinal 1 [id number] 119634 362244 480603 3 4.0 catheter Health (67958049) COUGAR 300cm Ron 1 [id number] 470436 225817 582535 1 guide wire Vascular ([id number]) TANMAY OTW 2.5 x Medtronic 1 [id number] 158856 57220 746929 5 [id number] 12 stent ([id number]) TANMAY OTW 2.5 x Medtronic 1 [id number] 838581 05593 464473 5 [id number] 15 stent ([id number]) EXOSEAL 6Fr Cardinal 1 EX600 233903 245114 140530 10 (EX600) Health Signature Audit [place] Stage Time Signature Unsigned Intra-Procedure 07/11/2017 Joe Ambrocio 2:59:08 PM RT(R) Signatures Monitor : Joe Ambrocio RT Signature : Date : Time : [address] [address]
--- NOTE | ~2017-07-10 | OP ---
PATIENT NAME: DIVYA PITT MEDICAL RECORD: [id number] :61 LOCATION:[facility]- ADMISSION DATE:07/10/17 SURGEON: DENISE VEE MD DATE OF OPERATION: 07/11/2017 PROCEDURES: Left heart catheterization, selective coronary angiography, right femoral artery approach. CATHETERS: A 5-Vietnamese sheath, 5/4 left and right Heena, 5/4 pig. The procedure was well tolerated. The patient was returned to garcia. Performed LAD times 2. FINDINGS: Left ventriculography in 30-degree LARSEN view: Normal wall motion. Normal systolic function. CORONARY ANATOMY: LEFT MAIN: Left main is free of disease. LAD: Has distal restenosis at the distal portion in between the two previously placed stents. Distal to the distal stent, there is about 80% stenosis as well. CIRCUMFLEX: Circumflex is free of disease. RIGHT CORONARY ARTERY: Dominant artery, gives rise to PDA, free of disease. IMPRESSION: Restenosis between the 2 previously placed stents and distal to the distal most stent. PLAN: Intervention momentarily. DESCRIPTION OF PROCEDURE: A 5-Vietnamese sheath exchanged for a 6-Vietnamese sheath. LAD XB 4.0 guide catheter provided good guide catheter support, followed by 300 cm Cleveland wire was placed down both lesions down this portion of the vessels. Distal stent deployed was a 2.5 x 12 mm Shelby drug-eluting stent up to 14 atmospheres. Between the two previously placed stents, 2.0 x 15 mm Med drug-eluting stent up to 14 atmospheres. Final angiography shows excellent resolution of both 80% stenosis to no significant stenosis. FLORINA flow was 3 throughout the procedure. Plavix loaded in the lab. Sheath was closed with ExoSeal device. TRANSINT:[id number] Voice Confirmation ID: [id number] DOCUMENT ID: [id number] DENISE VEE MD at 1001 CC: [id number] DICTATION DATE: 07/11/17 1455 NET APPLICATION ARCHITECT: 07/11/17 1601 DIS IN 07/11/17 [facility] [address] [facility] [place] [address]
[~2017-07-10 18:55] MED LIST changes: +PROAIR HFA8.5 GM INH; +ZANAFLEX6 MG PO
[2017-07-10 20:22] LABS: BASOPHILS 0.1 % (0-2); EOSINOPHILS 1.4 % (0-7); HEMATOCRIT 39.2 % (36.0-48.0); HEMOGLOBIN 13.3 g/dL (12-16); IMMATURE GRANULOCYTES 0.4 % (0-5); LYMPHOCYTES 34.1 % (15-50); MCH 30.3 pg (26.0-34.0); MCHC 33.9 g/dL (31.0-37.0); MCV 89.3 fL (80.0-100.0); MEAN PLATELET VOLUME 9.1 fL (7.4-10.4); MONOCYTES 6.8 % (2-11); NEUTROPHILS 57.2 % (40-80); PLATELET COUNT 162 10x3/uL (130-400); RBC 4.39 10x6/uL (4.00-5.40); RDW 13.4 % (11.5-14.5); WBC 7.3 10x3/uL (4.8-10.8)
[2017-07-10 20:31] LABS: INR 1.03 (0.85-1.17); PROTIME 13.1 SECONDS (11.6-15.0)
[2017-07-10 20:32] LABS: APTT 22.7 SECONDS (22.8-39.4)
[2017-07-10 20:34] LABS: D-DIMER-QUANTITATIVE 0.3 ug/mLFEU (0.20-0.54)
[2017-07-10 20:52] LABS: ALBUMIN 3.3 g/dL (3.4-5.0); ALKALINE PHOSPHATASE 78 U/L (46-116); ALT (SGPT) 47 U/L (10-68); BILIRUBIN - TOTAL 0.41 mg/dL (0.2-1.3); CALC OSMOLALITY 285 mosm/kg (275-300); CALCIUM 9.1 mg/dL (8.5-10.1); CARBON DIOXIDE 26.7 mmol/L (21.0-32.0); CHLORIDE - SERUM 102 mmol/L (98-107); CREATININE - SERUM 0.9 mg/dL (0.6-1.3); GLUCOSE 253 mg/dL (74-106); POTASSIUM - SERUM 3.8 mmol/L (3.5-5.1); PROTEIN - SERUM 7.2 g/dL (6.4-8.2); SODIUM 138 mmol/L (136-145); UREA NITROGEN 15 mg/dL (7-18); eGFR NON AFRICAN AMERICAN 69 mL/min (90-120)
[2017-07-10 21:03] LABS: AMYLASE - SERUM 36 U/L (25-115); CREATINE KINASE 57 UL (21-215); LIPASE 238 U/L (73-393); PRO BNP 15 pg/mL (0-125)
[2017-07-10 21:07] LABS: TROPONIN-I < 0.017 ng/mL (0.000-0.060)
[2017-07-10 22:59] LABS: CREATINE KINASE 58 UL (21-215); TROPONIN-I < 0.017 ng/mL (0.000-0.060)
[2017-07-11 04:36] LABS: BASOPHILS 0.3 % (0-2); EOSINOPHILS 1.9 % (0-7); HEMATOCRIT 37.9 % (36.0-48.0); HEMOGLOBIN 12.8 g/dL (12-16); IMMATURE GRANULOCYTES 0.6 % (0-5); LYMPHOCYTES 39.7 % (15-50); MCH 30.4 pg (26.0-34.0); MCHC 33.8 g/dL (31.0-37.0); MONOCYTES 6.8 % (2-11); NEUTROPHILS 50.7 % (40-80); PLATELET COUNT 151 10x3/uL (130-400); RBC 4.21 10x6/uL (4.00-5.40); RDW 13.6 % (11.5-14.5)
[2017-07-11 05:15] LABS: ALKALINE PHOSPHATASE 75 U/L (46-116); ALT (SGPT) 46 U/L (10-68); CALCIUM 8.4 mg/dL (8.5-10.1); CARBON DIOXIDE 28.1 mmol/L (21.0-32.0); CHLORIDE - SERUM 108 mmol/L (98-107); CREATINE KINASE 45 UL (21-215); POTASSIUM - SERUM 4.2 mmol/L (3.5-5.1); PROTEIN - SERUM 6.6 g/dL (6.4-8.2); SODIUM 141 mmol/L (136-145); TROPONIN-I < 0.017 ng/mL (0.000-0.060)
[2017-07-11 05:17] LABS: CALC OSMOLALITY 283 mosm/kg (275-300); CREATININE - SERUM 0.6 mg/dL (0.6-1.3); GLUCOSE 165 mg/dL (74-106); UREA NITROGEN 11 mg/dL (7-18); eGFR NON AFRICAN AMERICAN > 90 mL/min (90-120)
[2017-07-11 11:26] LABS: CREATINE KINASE 42 UL (21-215)
[2017-07-11 11:28] LABS: TROPONIN-I < 0.017 ng/mL (0.000-0.060)
[2017-07-11] MEDS ORDERED: PLAVIX75 MG PO (16:25)
== END 2017-07-11 19:00 | disposition home or self-care (01) ==
LOC: D.ER 18:55 → D.EDHOLD 21:49 → OBSVTIME 21:49 → D.EDHOLD 21:49
PROVIDERS: Family Medicine
DX: I25.110 Atherosclerotic heart disease of native coronary artery with unstable angina pectoris (principal); Z95.5 Presence of coronary angioplasty implant and graft; Z86.73 Personal history of transient ischemic attack (TIA), and cerebral infarction without residual deficits; E11.9 Type 2 diabetes mellitus without complications; I11.0 Hypertensive heart disease with heart failure; I50.9 Heart failure, unspecified; J44.9 Chronic obstructive pulmonary disease, unspecified
CPT/HCPCS: 93458; C9600

== ENCOUNTER 2017-09-09 13:27 | Emergency (ER) | payer MEDICARE, MEDICAID ==
[~2017-09-09] VITALS: Ht 154.9 cm; Wt 68.2 kg
[2017-09-09 13:31] VITALS: Ht 154.9 cm; Wt 68.2 kg
[2017-09-09] MEDS ORDERED: ROBAXIN-750750 MG PO (16:10)
[2017-09-09] MEDS ORDERED: TALWIN NX1 TAB PO (16:10)
[2017-09-09 16:22] VITALS: BP 164/97
== END 2017-09-09 16:23 | disposition home or self-care (01) ==
LOC: D.ER 13:27
DX: S49.92XA Unspecified injury of left shoulder and upper arm, initial encounter (principal); V43.52XA Car driver injured in collision with other type car in traffic accident, initial encounter; Y93.89 Activity, other specified; Y92.410 Unspecified street and highway as the place of occurrence of the external cause

== ENCOUNTER 2017-10-06 14:51 | Emergency (ER) | payer MEDICARE, MEDICAID ==
[~2017-10-06] VITALS: Ht 154.9 cm; Wt 65.9 kg
[~2017-10-06 14:51] MED LIST changes: +ROBAXIN-750750 MG PO; +TALWIN NX1 TAB PO
[2017-10-06 15:10] VITALS: Ht 154.9 cm; Wt 65.9 kg
[2017-10-06 15:34] LABS: APPEARANCE HAZY (CLEAR); BILIRUBIN NEGATIVE (NEGATIVE); COLOR STRAW (YELLOW); GLUCOSE 1000 mg/dL (NEGATIVE); KETONE NEGATIVE (NEGATIVE); NITRITE NEGATIVE (NEGATIVE); PROTEIN NEGATIVE (NEGATIVE); UROBILINOGEN NORMAL (NORMAL)
[2017-10-06 15:46] LABS: BASOPHILS 0.3 % (0-2); HEMATOCRIT 37.8 % (36.0-48.0); HEMOGLOBIN 13.1 g/dL (12-16); IMMATURE GRANULOCYTES 0.3 % (0-5); LYMPHOCYTES 35.6 % (15-50); MCH 30.5 pg (26.0-34.0); MCHC 34.7 g/dL (31.0-37.0); MCV 87.9 fL (80.0-100.0); MEAN PLATELET VOLUME 9.5 fL (7.4-10.4); MONOCYTES 6.1 % (2-11); NEUTROPHILS 55.7 % (40-80); PLATELET COUNT 168 10x3/uL (130-400); RDW 13.2 % (11.5-14.5); WBC 6.5 10x3/uL (4.8-10.8)
[2017-10-06 16:01] LABS: ALBUMIN 3.2 g/dL (3.4-5.0); ALKALINE PHOSPHATASE 89 U/L (46-116); ALT (SGPT) 47 U/L (10-68); BILIRUBIN - TOTAL 0.56 mg/dL (0.2-1.3); CALC OSMOLALITY 286 mosm/kg (275-300); CALCIUM 8.4 mg/dL (8.5-10.1); CARBON DIOXIDE 28.3 mmol/L (21.0-32.0); CHLORIDE - SERUM 99 mmol/L (98-107); CREATININE - SERUM 0.7 mg/dL (0.6-1.3); POTASSIUM - SERUM 3.7 mmol/L (3.5-5.1); PROTEIN - SERUM 7.2 g/dL (6.4-8.2); SODIUM 136 mmol/L (136-145); UREA NITROGEN 5 mg/dL (7-18); eGFR NON AFRICAN AMERICAN > 90 mL/min (90-120)
[2017-10-06 16:03] LABS: GLUCOSE 418 mg/dL (74-106)
[2017-10-06] MEDS ORDERED: ULTRAM50 MG PO (17:47)
[2017-10-06 18:57] VITALS: BP 116/65
== END 2017-10-06 19:00 | disposition home or self-care (01) ==
LOC: D.ER 14:51
PROVIDERS: Family Medicine
DX: E11.8 Type 2 diabetes mellitus with unspecified complications (principal); Z79.4 Long term (current) use of insulin; R53.83 Other fatigue; R42 Dizziness and giddiness; R25.2 Cramp and spasm; I10 Essential (primary) hypertension; J44.9 Chronic obstructive pulmonary disease, unspecified; I25.10 Atherosclerotic heart disease of native coronary artery without angina pectoris

== ENCOUNTER → 2017-11-01 07:44 | Outpatient (CLI) | payer MEDICARE, MEDICAID ==
[2017-10-06 15:10] VITALS: BMI 27.4
[~2017-11-01 07:44] MED LIST changes: +ROBAXIN500 MG PO; +ULTRAM50 MG PO
== END | disposition home or self-care (01) ==
LOC: D.RAD 10-26 13:30
DX: M54.16 Radiculopathy, lumbar region (principal)

== ENCOUNTER 2017-11-01 23:52 | Emergency (ER) | payer MEDICARE, MEDICAID ==
[~2017-11-01] VITALS: Ht 154.9 cm; Wt 70.0 kg
[~2017-11-01 23:52] MED LIST changes: -ROBAXIN500 MG PO
[2017-11-02] VITALS: Ht 154.9 cm; Wt 70.0 kg
[2017-11-02] MEDS ORDERED: ROBAXIN500 MG PO (02:02)
[2017-11-02 02:23] VITALS: BP 138/96
== END 2017-11-02 02:23 | disposition home or self-care (01) ==
LOC: D.ER 23:52
DX: S39.012A Strain of muscle, fascia and tendon of lower back, initial encounter (principal); X58.XXXA Exposure to other specified factors, initial encounter; Y93.89 Activity, other specified; Y92.019 Unspecified place in single-family (private) house as the place of occurrence of the external cause; M62.830 Muscle spasm of back; M54.16 Radiculopathy, lumbar region; M79.605 Pain in left leg; M79.604 Pain in right leg; Z86.73 Personal history of transient ischemic attack (TIA), and cerebral infarction without residual deficits; E11.9 Type 2 diabetes mellitus without complications; I11.0 Hypertensive heart disease with heart failure; I50.9 Heart failure, unspecified; J44.9 Chronic obstructive pulmonary disease, unspecified

== ENCOUNTER 2017-11-05 13:14 | Emergency (ER) | payer MEDICARE, MEDICAID ==
[~2017-11-05] VITALS: Ht 154.9 cm; Wt 70.0 kg
[~2017-11-05 13:14] MED LIST changes: +ROBAXIN500 MG PO
[2017-11-05 13:18] VITALS: Ht 154.9 cm; Wt 70.0 kg
[2017-11-05 17:31] LABS: BASOPHILS 0.2 % (0-2); EOSINOPHILS 1.2 % (0-7); HEMATOCRIT 43.6 % (36.0-48.0); IMMATURE GRANULOCYTES 0.9 % (0-5); LYMPHOCYTES 29.8 % (15-50); MCH 30.6 pg (26.0-34.0); MCHC 34.4 g/dL (31.0-37.0); MEAN PLATELET VOLUME 10.8 fL (7.4-10.4); MONOCYTES 7.2 % (2-11); NEUTROPHILS 60.7 % (40-80); PLATELET COUNT 52 10x3/uL (130-400); RDW 13.5 % (11.5-14.5); WBC 9.1 10x3/uL (4.8-10.8)
[2017-11-05 17:50] LABS: PLATELET ESTIMATE DECREASED
[2017-11-05 17:57] LABS: ALBUMIN 3.4 g/dL (3.4-5.0); ALKALINE PHOSPHATASE 92 U/L (46-116); ALT (SGPT) 45 U/L (10-68); BILIRUBIN - TOTAL 0.45 mg/dL (0.2-1.3); C-REACTIVE PROTEIN 1.4 mg/dL (0.0-0.9); CALC OSMOLALITY 281 mosm/kg (275-300); CALCIUM 8.9 mg/dL (8.5-10.1); CARBON DIOXIDE 27.7 mmol/L (21.0-32.0); CHLORIDE - SERUM 101 mmol/L (98-107); CREATININE - SERUM 0.7 mg/dL (0.6-1.3); GLUCOSE 259 mg/dL (74-106); POTASSIUM - SERUM 3.9 mmol/L (3.5-5.1); SODIUM 137 mmol/L (136-145); UREA NITROGEN 10 mg/dL (7-18); eGFR NON AFRICAN AMERICAN > 90 mL/min (90-120)
[2017-11-05] MEDS ORDERED: ULTRAM50 MG PO (20:38)
[2017-11-05 20:57] VITALS: BP 169/94
== END 2017-11-05 20:57 | disposition home or self-care (01) ==
LOC: D.ER 13:14
PROVIDERS: Emergency Medicine
DX: G43.909 Migraine, unspecified, not intractable, without status migrainosus (principal); M25.552 Pain in left hip; M25.551 Pain in right hip; R11.0 Nausea; M54.6 Pain in thoracic spine; Z86.73 Personal history of transient ischemic attack (TIA), and cerebral infarction without residual deficits; E11.9 Type 2 diabetes mellitus without complications; I10 Essential (primary) hypertension; I50.9 Heart failure, unspecified

== ENCOUNTER → 2017-11-07 11:09 | Outpatient (CLI) | payer MEDICARE, MEDICAID ==
[2017-11-05 13:18] VITALS: BMI 29.1
--- NOTE | ~2017-11-07 | HEMODYNAMI ---
PATIENT:DIVYA PITT MEDICAL RECORD: [id number] : 61 LOCATION:[facility] LLCT# [id number] ADMISSION DATE: 11/07/17 Generatedon:11/07/201714:45 Patient name: DIVYA PITT Patient #: [id number] SSN: [id number] : 1965 Date of study: 11/07/2017 Page: Of Hemodynamic Procedure Report Patient Data Patient Demographics Procedure consent was obtained First Name: DIVYA Gender: Female Last Name: YOANDY : 1965 Middle Initial: SOPHY Age: 52 year(s) Patient #: [id number] Race: SSN: [id number] Additional ID: [id number] Contact details [address]: [address] [place] [address] State: [place] City: [place] Zip code: [address] Past Medical History Allergies Allergen Reaction Date Comments Reported Other 06/11/2014 Apple Juice, ASA, Motrin, allergy Geodon, Anti-inflammatories, Depakote, Augmentin Other 02/18/2016 Aspirin, Geodon, Ibuprofen, allergy Steroids, Depakote Other 07/11/2017 PCN, NSAIDS, Amoxicillin, allergy aspirin, coconut, divalproex sodium, ibuprofen, menthol, meperidine, potassium clavulante, ziprasidone HCL, ziprasidone mesylate, apple juice. Other 11/07/2017 MOTRIN,ASPIRIN,GODON,GABAPETIN, allergy DEPAKOTE,PCN,INSAIDS Admission Admission Data Admission Date: 11/07/2017 Admission Time: 11:09 Procedure Procedure Types Cath Procedure Peripheral Cath Diagnostic Procedure Cath Peripheral Miscellaneous Blood Patch Injection Procedure Description Procedure Date Procedure Date: 11/07/2017 Procedure Start Time: 14:20 Procedure Staff Name Function Bee Ortez MD Performing Physician Nallely Zuniga RT Barmaid Ilsa Talley RN Nurse Cristina Smith RN Nurse Cornelio Weeks RT Scrub Ruby Montalvo MD Ordering physician Procedure Data Cath Procedure Fluoroscopy Diagnostic fluoroscopy Total fluoroscopy Time: 1.4 time: 1.4 min min Diagnostic fluoroscopy Total fluoroscopy dose: 15 dose: 15 mGy mGy Hemodynamics Rest Pre Cath Intra NCS Post Cath Procedure Log Time Note 13:23:43 Cornelio Desi RT (R) (CV) sent for patient. Start room use. 13:23:53 Time tracking: Regular hours (M-F 7:00 - 5:00) 13:24:13 Patient received from Other to IR Alert and oriented. Tansferred to table in Prone position. 13:24:14 Correct patient and procedure confirmed by team. 13:24:16 Signed procedure consent form obtained from patient. 13:24:18 - 13:24:19 Pre-op teaching completed and patient verbalized understanding. 13:24:20 Pre-procedure instructions explained to patient. 13:24:21 Family in waiting room. 13:24:26 Patient NPO since Midnight. 13:24:44 PT NOT ON BLOODTHINNERS 13:25:39 Patient allergic to Other allergyMOTRIN,ASPIRIN,GODON,GABAPETIN, DEPAKOTE,PCN,INSAIDS 13:29:24 Lumbar area was prepped with betadine and draped in sterile fashion 14:19:43 Physician arrived 14:20:01 --------ALL STOP TIME OUT------ 14:20:02 Final Timeout: patient, procedure, and site verified with staff and physician. All members of the team are in agreement. 14:20:06 Procedure started. 14:20:07 Full Disclosure recording started 14:20:13 Local anesthetic to Lumbar area with Lidocaine 1% by Bee Ortez MD.INITIAL ACCESS ONLY 14:43:19 Procedure ended.(Physican Out) 14:43:23 Fluoroscopy time 01.40 minutes. 14:43:31 Fluoroscopy dose: 15 mGy 14:43:31 Flurop Dose total: 15 Signature Audit [place] Stage Time Signature Unsigned Intra-Procedure 11/07/2017 Nallely Zuniga 2:45:26 PM RT(R) [facility] [address] [place] [address]
== END | disposition home or self-care (01) ==
LOC: D.RAD 11:00
DX: G96.0 Cerebrospinal fluid leak (principal)

== ENCOUNTER 2017-11-28 18:36 | Emergency (ER) | payer MEDICARE, MEDICAID ==
[~2017-11-28] VITALS: Ht 154.9 cm; Wt 70.0 kg
[2017-11-28 19:10] VITALS: Ht 154.9 cm; Wt 70.0 kg
[2017-11-28 21:00] LABS: BASOPHILS 0.3 % (0-2); EOSINOPHILS 1.5 % (0-7); HEMATOCRIT 39.7 % (36.0-48.0); HEMOGLOBIN 13.9 g/dL (12-16); IMMATURE GRANULOCYTES 1.4 % (0-5); LYMPHOCYTES 33.3 % (15-50); MCH 30.8 pg (26.0-34.0); MCV 87.8 fL (80.0-100.0); MEAN PLATELET VOLUME 9.9 fL (7.4-10.4); MONOCYTES 8.8 % (2-11); NEUTROPHILS 54.7 % (40-80); RBC 4.52 10x6/uL (4.00-5.40); RDW 13.5 % (11.5-14.5); WBC 6.6 10x3/uL (4.8-10.8)
[2017-11-28 21:02] LABS: PLATELET COUNT 179 10x3/uL (130-400)
[2017-11-28 21:06] LABS: ALBUMIN 3.3 g/dL (3.4-5.0); ALKALINE PHOSPHATASE 109 U/L (46-116); ALT (SGPT) 39 U/L (10-68); CALC OSMOLALITY 294 mosm/kg (275-300); CALCIUM 8.4 mg/dL (8.5-10.1); CARBON DIOXIDE 23.3 mmol/L (21.0-32.0); CHLORIDE - SERUM 101 mmol/L (98-107); CREATININE - SERUM 0.8 mg/dL (0.6-1.3); MAGNESIUM - SERUM 1.8 mg/dL (1.8-2.4); POTASSIUM - SERUM 3.8 mmol/L (3.5-5.1); PROTEIN - SERUM 7.5 g/dL (6.4-8.2); SODIUM 139 mmol/L (136-145); UREA NITROGEN 10 mg/dL (7-18); eGFR NON AFRICAN AMERICAN 79 mL/min (90-120)
[2017-11-28 21:07] LABS: APPEARANCE CLEAR (CLEAR); BILIRUBIN NEGATIVE (NEGATIVE); COLOR YELLOW (YELLOW); GLUCOSE 1000 mg/dL (NEGATIVE); KETONE MODERATE mg/dL (NEGATIVE); NITRITE NEGATIVE (NEGATIVE); PROTEIN NEGATIVE (NEGATIVE); UROBILINOGEN NORMAL (NORMAL)
[2017-11-28 21:08] LABS: WHITE CELLS - URINE 25-50 /hpf (0-5)
[2017-11-28 21:09] LABS: BACTERIA FEW /hpf (NONE SEEN); EPITHELIAL CELLS 0-5 /hpf (0-5); GLUCOSE 416 mg/dL (74-106)
[2017-11-28 21:15] LABS: KETONE - SERUM NEGATIVE (NEGATIVE)
[2017-11-28 23:13] VITALS: BP 136/90
== END 2017-11-28 23:13 | disposition home or self-care (01) ==
LOC: D.ER 18:36
PROVIDERS: Emergency Medicine
DX: E11.65 Type 2 diabetes mellitus with hyperglycemia (principal); Z79.4 Long term (current) use of insulin

== ENCOUNTER → 2017-12-11 07:47 | Outpatient (CLI) | payer MEDICARE, MEDICAID ==
[2017-11-28 19:10] VITALS: BMI 29.1
[~2017-12-11 07:47] MED LIST changes: +BACLOFEN10 MG PO; +CELEXA20 MG PO; +HUMALOG MIX 75/23 ML; +HUMIRA PEN SQ; +NITROSTAT0.3 MG SL; +PERCOCET 7.5/321 TAB PO; +PROTONIX40 MG PO; +REXULTI1 MG PO; +TOUJEO SOL300 UNIT/1; +VISTARIL50 MG PO
== END | disposition home or self-care (01) ==
LOC: D.CT 07:47
DX: R10.12 Left upper quadrant pain (principal)

== ENCOUNTER 2017-12-21 08:35 | Day surgery (SDC) | payer MEDICARE, MEDICAID ==
[2017-12-20 09:33] LABS: HEMATOCRIT 41.5 % (36.0-48.0); HEMOGLOBIN 14.2 g/dL (12-16); MCH 30.4 pg (26.0-34.0); MCHC 34.2 g/dL (31.0-37.0); MCV 88.9 fL (80.0-100.0); MEAN PLATELET VOLUME 9.6 fL (7.4-10.4); RBC 4.67 10x6/uL (4.00-5.40); RDW 13.6 % (11.5-14.5); WBC 6.6 10x3/uL (4.8-10.8)
[2017-12-20 09:47] LABS: CALC OSMOLALITY 282 mosm/kg (275-300); CALCIUM 8.9 mg/dL (8.5-10.1); CARBON DIOXIDE 32.4 mmol/L (21.0-32.0); CHLORIDE - SERUM 100 mmol/L (98-107); CREATININE - SERUM 0.7 mg/dL (0.6-1.3); GLUCOSE 207 mg/dL (74-106); POTASSIUM - SERUM 3.5 mmol/L (3.5-5.1); SODIUM 140 mmol/L (136-145); UREA NITROGEN 8 mg/dL (7-18); eGFR NON AFRICAN AMERICAN > 90 mL/min (90-120)
[~2017-12-21] VITALS: Ht 154.9 cm; Wt 69.9 kg
--- NOTE | ~2017-12-21 | OP ---
PATIENT NAME: DIVYA PITT MEDICAL RECORD: [id number] :61 LOCATION:[facility] ADMISSION DATE: SURGEON: AMELIA LOPES DO DATE OF OPERATION: 12/21/2017 PROCEDURE PERFORMED: Left shoulder arthroscopy with lysis of adhesions, capsular release, and manipulation. PREOPERATIVE DIAGNOSIS: Left shoulder adhesive capsulitis. POSTOPERATIVE DIAGNOSIS: Left shoulder adhesive capsulitis. INDICATIONS: Ms. Meeks is a 52-year-old female who had had left shoulder surgery some years ago. She is diabetic and developed a frozen shoulder quite a few months ago. She had been trying physical therapy and even tried an intra-articular injection with no relief, she could only forward flex to approximately 90 degrees and externally rotate with her arm at the side to 25 degrees. This was quite painful for her. She was tired of dealing with the pain and asked if we could do something surgically. I informed her of the risks and benefits of the procedure and I told her that if she did not work on the motion that surgery would be worthless after the surgery. She is aware that and she consented to the procedure, also aware of the risks of infection, bleeding, the need for further surgery, damage to nerves and vessels and even . She consented to the procedure. SURGEON: Amelia Lopes DO DESCRIPTION OF PROCEDURE: The patient was taken to the operative suite, laid in the right lateral decubitus position with the axillary roll placed on the axilla and amador bag placed around the patient. Once she was intubated and sedated 900 mg of clindamycin was given as well as 1 gram Ancef. The patient's left shoulder was prepped and draped in sterile fashion. Timeout was performed, everyone was in agreement of the correct side, site, patient and procedure. Then, 50 mL of normal saline were injected into the shoulder joint, insufflating it and an 11 blade scalpel was used to establish the posterior portal. The trocar was then entered into the shoulder joint itself and the scope was entered into the shoulder. Once this happened, the shoulder joint was entered. Cartilage was inspected and seen to be very well intact on the humerus and the glenoid. No loose bodies were seen in the inferior pouch. The rotator cuff tendon seemed to be intact on the articular surface. There was a small flap tear seen; however, due to the procedure, she had not been consented to do a biceps tenotomy or tenodesis. The anterior portal was then established through the rotator interval with an 11-blade scalpel after an 18-gauge spinal needle had been put in. Then the trocar was entered and a burner was then entered. The adhesions there were from the labrum to the subscapularis and in the rotator interval. The rotator interval was then released with a burner and the adhesions around them between the subscapularis tendon and the labrum were released as well with the burner. Following this, due to the fact that before the procedure began, I tested her motion and she could forward flex fully to 120-150 degrees passively. When she was asleep, I did not release the inferior capsule and feared that would make her unstable. The trocar was then entered into the subacromial space, there was quite a bit of bursa and was inflamed in the subacromial space. A lateral portal was established then with an 18-gauge spinal needle and then an 11-blade scalpel. The shaver was used then to do a bursectomy in the subacromial space. Once this was done, water was turned off, OPERATIVE REPORT [id number] DIVYA PITT suction was turned on and everything was removed from the shoulder. We then did the manipulation. I then did forward flexion fully as before to 150 and then external rotation at the side, she was a 25-90 degrees of external rotation approximately at the side and then at the shoulder abducted to 90, external rotation to 90 degrees as well and internal rotation to 90 degrees with the shoulder abducted to 90 degrees and then internal rotation was done with the arm at about 45 degrees. She had full flexion and extension at that point and I was very pleased with the external rotation with the arm at adduction. The portal sites were then closed with 4-0 Monocryl in an inverted interrupted fashion. Dermabond, Telfa and Tegaderm were placed on them. The patient was awakened and taken to recovery in stable condition. Blood loss was minimal. COMPLICATIONS: None. TRANSINT:[id number] Voice Confirmation ID: [id number] DOCUMENT ID: [id number] AMELIA LOPES DO at 5851 CC: [id number] DICTATION DATE: 12/21/17 125 PRESSER AND BLOCKER KNITTED GOODS: 12/21/17 1316 REG [facility] [address] [facility], [facility]901
[~2017-12-21 08:35] MED LIST changes: -PERCOCET 7.5/321 TAB PO; -VISTARIL50 MG PO
[2017-12-21] MEDS ORDERED: REXULTI1 MG PO (09:10)
[2017-12-21 09:35] VITALS: BP 133/83; Ht 154.9 cm; Wt 69.9 kg
[2017-12-21] MEDS ORDERED: PERCOCET 7.5/321 TAB PO (12:48)
[2017-12-21] MEDS ORDERED: VISTARIL50 MG PO (12:56)
== END 2017-12-21 15:25 | disposition home or self-care (01) ==
LOC: D.OPS 08:35 → D.PAN 11:45 → D.OPS 15:25
PROVIDERS: Anesthesiology
DX: M75.02 Adhesive capsulitis of left shoulder (principal); Z01.812 Encounter for preprocedural laboratory examination

== ENCOUNTER 2018-01-14 05:40 | Day surgery (SDC) | payer MEDICARE, MEDICAID ==
[~2018-01-14] VITALS: Ht 154.9 cm; Wt 72.7 kg
--- NOTE | ~2018-01-14 | OP ---
PATIENT NAME: DIVYA PITT MEDICAL RECORD: [id number] :61 LOCATION:[facility]NA ADMISSION DATE: SURGEON: LESLEE HANDLEY DO DATE OF OPERATION: 01/14/2018 PROCEDURE: EGD with biopsies. INDICATIONS FOR PROCEDURE: History of Littlejohn esophagus, heartburn, nausea, epigastric abdominal pain, right upper quadrant abdominal pain, history of gastroparesis, status post pacemaker placement. SCOPE: Olympus video gastroscope. MEDICATIONS: Propofol 200 mg IV per anesthesia. ESTIMATED BLOOD LOSS: Minimal. COMPLICATIONS: None. FINDINGS: Informed consent was given. The patient was made comfortable with the above medication. After reaching an adequate level of sedation by slow IV push, the patient was placed on her left side. The endoscope was advanced under direct visualization through the mouth to the third portion of the duodenum with ease. The upper, middle, and lower thirds of the esophagus appeared normal. Two cold forceps biopsies were taken from the mid esophagus to rule out the presence of the eosinophilic esophagitis. The endoscope was advanced to the GE junction where some minor LA class A reflux-induced esophagitis was present. Two cold forceps biopsies were taken at the squamocolumnar junction to rule out the presence of Littlejohn esophagus. The endoscope was advanced beyond the GE junction into the stomach and retroflexed to view the cardia, where evidence of a prior Negra fundoplication has been performed. The wrap appeared to be intact. Throughout the entire stomach, there were patchy areas of erythema and friability as well as some granulation tissue consistent with gastritis. Random cold forceps biopsies were taken to submit for histopathology and to rule out the presence of H. pylori. The endoscope was advanced beyond the pylorus into the duodenum. The entire exam on duodenum down to the third portion appeared normal. The endoscope was then brought back into the stomach and an 18-20 mm CRE dilating balloon was placed through the working channel of the endoscope. The endoscope was brought back up into the esophagus and the distal esophagus and GE junction was dilated up to 20 mm successfully. The CRE Balloon and the endoscope was then withdrawn from the patient. The patient tolerated the procedure well and there were no complications. IMPRESSION: 1. LA class A reflux-induced esophagitis and possible Littlejohn's esophagus at the gastroesophageal junction. Biopsies were taken. If Littlejohn's tissue was present, this will be short-segment Littlejohn's. 2. Patchy gastritis of the entire stomach. 3. Prior Negra fundoplication. PLAN AND RECOMMENDATIONS: 1. Discharged home when recovery parameters are met. 2. Follow up biopsy specimen results. 3. Continue current diet, which should consist of reflux precautions as well as OPERATIVE REPORT [id number] DIVYA PITT smaller more frequent meals for her significant gastroparesis. 4. Continue omeprazole/Prilosec but increase to 40 mg daily dose for uncontrolled reflux symptoms. 5. Add Pepcid or Zantac to evening-time dose for better reflux coverage. 6. Follow up in the GI clinic as needed. 7. If dysphagia persists, consider a modified barium swallow for oropharyngeal type dysphagia. TRANSINT:[id number] Voice Confirmation ID: [id number] DOCUMENT ID: [id number] LESLEE HANDLEY DO at 1300 CC: [id number] DICTATION DATE: 01/14/18 0823 PRE KINDERGARTEN TEACHER: 01/14/18 0953 [facility] 01/14/18 [place] [address] [place] [address]
[~2018-01-14 05:40] MED LIST changes: +PERCOCET 7.5/321 TAB PO; +VISTARIL50 MG PO
[2018-01-14 06:07] LABS: HEMATOCRIT 39.5 % (36.0-48.0); HEMOGLOBIN 13.7 g/dL (12-16); MCH 30.5 pg (26.0-34.0); MCHC 34.7 g/dL (31.0-37.0); RBC 4.49 10x6/uL (4.00-5.40); RDW 13.3 % (11.5-14.5); WBC 5.8 10x3/uL (4.8-10.8)
[2018-01-14 06:21] LABS: CALC OSMOLALITY 285 mosm/kg (275-300); CALCIUM 9.2 mg/dL (8.5-10.1); CARBON DIOXIDE 29.4 mmol/L (21.0-32.0); CHLORIDE - SERUM 104 mmol/L (98-107); CREATININE - SERUM 0.6 mg/dL (0.6-1.3); GLUCOSE 192 mg/dL (74-106); POTASSIUM - SERUM 3.6 mmol/L (3.5-5.1); SODIUM 142 mmol/L (136-145); UREA NITROGEN 6 mg/dL (7-18); eGFR NON AFRICAN AMERICAN > 90 mL/min (90-120)
[2018-01-14 06:47] VITALS: Ht 154.9 cm; Wt 72.7 kg
== END 2018-01-14 09:59 | disposition home or self-care (01) ==
LOC: D.OPS 05:40
PROVIDERS: Anesthesiology
DX: K21.0 Gastro-esophageal reflux disease with esophagitis (principal)

== ENCOUNTER 2018-02-13 12:15 | Inpatient (IN) | payer MEDICARE, MEDICAID ==
[~2018-02-13] VITALS: Ht 154.9 cm; Wt 70.9 kg
--- NOTE | ~2018-02-13 | MORECARE ---
CASE MANAGEMENT DISCHARGE SUMMARY PATIENT: DIVYA PITT UNIT: [id number] ADM DATE: 02/13/18 AGE: 52 : 61 SEX: F ROOM/BED: D.1209 AUTHOR: RONNELL,DOC PHYSICIAN: REFERRING PHYSICIAN: DONOVAN BORJA DO DATE OF SERVICE: 02/16/18 Discharge Plan Patient Name: DIVYA PITT Facility: [facility]:[place] : 1965 Planned Disposition: Home Anticipated Discharge Date: 02/16/18 Discharge Date: Expected LOS: 3 Initial Reviewer: [email or web address] Initial Review Date: 02/13/2018 Generated: 02/16/18 12:37 pm Comments DCP- Discharge Planning Updated by [email or web address]: Sarah Dickerson on 02/16/18 10:[address] Patient Name: DIVYA PITT Encounter No: [id number] : 1965 Primary Insurance: [facility] MEDICARE SOLUTIONS Anticipated DC Date: 02-16-2018 Planned Disposition: Home External Planned Provider: : DCP follow-up note: Patient and family in agreement with discharge plan. No changes to plan. Case management will follow and assist as needed. IMM SERVED. Sarah Dickerson DCP- Discharge Planning Updated by [email or web address]: Annie Lovell on 02/13/18 8:[address] Patient Name: DIVYA PITT Admission Status: Elective Accout number: [id number] Admission Date: 02-13-2018 : 1965 Admission Diagnosis: Attending: DONOVAN BORJA Current LOS: 1 Anticipated DC Date: Planned Disposition: Home Primary Insurance: [facility] MEDICARE SOLUTIONS Discharge Planning Comments: CM met with patient and spouse at bedside after obtaining verbal consent. Patient states she plans on returning home after discharge with her . Patient states she thinks she needs home 02. CM explained that we may have to do some testing to see if she can qualify for home 02. CM will continue to follow and assist as needed for discharge planning / needs. Delivery Route Driver: Annie Lovell DCPIA - Discharge Planning Initial Assessment Updated by [email or web address]: Annie Lovell on 02/13/18 9:56 pm * Is the patient Alert and Oriented? Yes * How many steps to enter\exit or inside your home? * PCP [facility] * [facility] * Preadmission Environment Home with Family * ADLs Independent * Equipment Cane * Other Equipment CPAP, nebulizer * List name and contact numbers for known caregivers / representatives who currently or will assist patient after discharge: Lopez Pitt [phone] * Verbal permission to speak to the caregivers and representatives has been obtained from the patient. Yes * Community resources currently utilized None * Additional services required to return to the preadmission environment? No * Can the patient safely return to the preadmission environment? Yes * Has this patient been hospitalized within the prior 30 days at any hospital? No Coverage Notice Reviewer: [id number] Ernestine Dickerson Notice Issued Date-Time: 02/16/2018 11:30 Notice Type: IM Discharge Notice Notice Delivered To: Patient Relationship to Patient: Self Route Sales Delivery Driver Name: Delivery Method: HAND - Hand Delivered Ceci Days: Prior Verbal Notification: Recipient Understood Notice: Yes Recipient Signature: Yes Med Rec Note Co-signed by Attending: Coverage Notice Comment: Last DP export: 02/13/18 9:00 Patient Name: DIVYA PITT Page 37331 at 1137 All edits/amendments must be made on the electronic document DICTATION DATE: 02/16/181135 CONCRETE MIXER: SULMA 02/16/181135 RPT#: [id number] DC DATE: STATUS: ADM IN [facility] [address] [place] [address] END OF REPORT
--- NOTE | ~2018-02-13 | CN ---
PATIENT NAME:DIVYA PITT MEDICAL RECORD: [id number] : 61 LOCATION:D.M3 D.1209 ADMIT DATE: 02/13/18 ACCOUNT: [id number] CONSULTING PHYSICIAN: WAYNE LAZCANO MD REFERRING PHYSICIAN: HECTOR BORJA DO DATE OF CONSULTATION: 02/14/2018 CONSULT REQUESTING PHYSICIAN: Hector Borja DO REASON FOR CONSULTATION: Acute exacerbation of COPD. HISTORY OF PRESENT ILLNESS: Ms. Pitt is a 52-year-old female who is an ex-smoker with history of COPD and asthma. According to the patient, she is sick for the last few days. She is coughing. She is wheezing. She has shortness of breath with mild exertion. The cough is productive with white-yellow color sputum production. REVIEW OF THE SYSTEMS: As in history of present illness. PAST MEDICAL HISTORY: 1. COPD. 2. Asthma. 3. Congestive heart failure. 4. Coronary artery disease, status post [place] and angioplasty. 5. Hypercholesterolemia. 6. Diabetes mellitus. 7. Neuropathy. 8. Gastroesophageal reflux disease. 9. She has osteoarthritis. PAST SURGICAL HISTORY: She had hysterectomy. ALLERGIES: SHE IS ALLERGIC TO PENICILLIN, AMOXICILLIN, IBUPROFEN, MENTHOL, MEPERIDINE, OXYCODONE, AND GEODON. MEDICATIONS: [employer] was reviewed. PERSONAL AND SOCIAL HISTORY: The patient is an ex-smoker. She is nondrinker. FAMILY HISTORY: Significant for neurological disorders. PHYSICAL EXAMINATION: GENERAL: Now, the patient is lying comfortably in bed. She is not in acute distress. VITAL SIGNS: The blood pressure is 112/63, pulse is 92, respiration is 16, temperature 98.1, and SpO2 is 96% on room air. HEENT: Conjunctivae are pink. Sclerae are not icteric. NECK: Neck is supple. No JVD. CHEST: There is prolonged expiration with wheezing. HEART: Rhythm regular. Normal sound. No murmur. ABDOMEN: Abdomen is soft. Bowel sounds present. No hepatosplenomegaly. RECTAL: Deferred. EXTREMITIES: No cyanosis. No clubbing. No pedal edema. CENTRAL NERVOUS SYSTEM: The patient is awake and alert. There is no obvious cranial nerve abnormality. The gait was not tested. CONSULT REPORT [id number] DIVYA PITT DIAGNOSTIC DATA: Chest radiograph; there is no acute infiltrate. There is old 12th rib procedure. LABORATORY DATA: CBC; WBC 7.4, hemoglobin 13.8, hematocrit 40.2, and platelet count 172. Chemistry; sodium 133, potassium 4.1, BUN is 10, and creatinine 0.7. IMPRESSION: 1. Acute exacerbation of COPD. 2. Acute tracheobronchitis. 3. Dyspnea on exertion. 4. Ex-smoker. 5. History of asthma. 6. Gastroesophageal reflux disease. RECOMMENDATION: 1. Albuterol/ipratropium nebulizer. Start on Brovana and budesonide nebulizer. 2. Methylprednisolone IV. 3. Adjust the dose of Levaquin. 4. Singulair 10 mg a day. 5. Mucinex DM. 6. Continue Tessalon Perles. Follow up labs. Dr. Borja, thank you for involving me in the care of Ms. Pitt. TRANSINT:[id number] Voice Confirmation ID: [id number] DOCUMENT ID: [id number] WAYNE LAZCANO MD CC: [id number] DICTATION DATE: 02/14/18 1413 PALLIATIVE CARE SPECIALIST: 02/14/18 1550 ADM IN [facility] [address] [place] [address]
--- NOTE | ~2018-02-13 | MORECARE ---
CASE MANAGEMENT DISCHARGE SUMMARY PATIENT: DIVYA PITT UNIT: [id number] ADM DATE: 02/13/18 AGE: 52 : 61 SEX: F ROOM/BED: D.1209 AUTHOR: RONNELLDOC PHYSICIAN: REFERRING PHYSICIAN: DONOVAN BORJA DO DATE OF SERVICE: 02/18/18 Discharge Plan Patient Name: DIVYA PITT Facility: [facility]:[place] : 1965 Planned Disposition: Home Anticipated Discharge Date: 02/16/18 Discharge Date: 02/16/2018 Expected LOS: 3 Initial Reviewer: [email or web address] Initial Review Date: 02/13/2018 Generated: 02/18/18 8:00 pm Comments DCP- Discharge Planning Updated by [email or web address]: Sarah Dickerson on 02/16/18 10:[address] Patient Name: DIVYA PITT Encounter No: [id number] : 1965 Primary Insurance: [facility] MEDICARE SOLUTIONS Anticipated DC Date: 02-16-2018 Planned Disposition: Home External Planned Provider: : DCP follow-up note: Patient and family in agreement with discharge plan. No changes to plan. Case management will follow and assist as needed. IMM SERVED. Sarah Dickerson DCP- Discharge Planning Updated by [email or web address]: Annie Lovell on 02/13/18 8:[address] Patient Name: DIVYA PITT Admission Status: Elective Accout number: [id number] Admission Date: 02-13-2018 : 1965 Admission Diagnosis: Attending: DONOVAN BORJA Current LOS: 1 Anticipated DC Date: Planned Disposition: Home Primary Insurance: [facility] [employer] SOLUTIONS Discharge Planning Comments: CM met with patient and spouse at bedside after obtaining verbal consent. Patient states she plans on returning home after discharge with her . Patient states she thinks she needs home 02. CM explained that we may have to do some testing to see if she can qualify for home 02. CM will continue to follow and assist as needed for discharge planning / needs. Flag Car Driver: Annie Lovell DCPIA - Discharge Planning Initial Assessment Updated by [email or web address]: Annie Lovell on 02/13/18 9:56 pm * Is the patient Alert and Oriented? Yes * How many steps to enter\exit or inside your home? * PCP [facility] * [facility] * Preadmission Environment Home with Family * ADLs Independent * Equipment Cane * Other Equipment CPAP, nebulizer * List name and contact numbers for known caregivers / representatives who currently or will assist patient after discharge: Lopez Pitt [phone] * Verbal permission to speak to the caregivers and representatives has been obtained from the patient. Yes * Community resources currently utilized None * Additional services required to return to the preadmission environment? No * Can the patient safely return to the preadmission environment? Yes * Has this patient been hospitalized within the prior 30 days at any hospital? No Coverage Notice Reviewer: [id number] Ernestine Dickerson Notice Issued Date-Time: 02/16/2018 11:30 Notice Type: IM Discharge Notice Notice Delivered To: Patient Relationship to Patient: Self [employer] Name: Delivery Method: HAND - Hand Delivered Ceci Days: Prior Verbal Notification: Recipient Understood Notice: Yes Recipient Signature: Yes Med Rec Note Co-signed by Attending: Coverage Notice Comment: Last DP export: 02/16/18 10:37 a Patient Name: DIVYA PITT Page 76810 at 1900 All edits/amendments must be made on the electronic document DICTATION DATE: 02/18/181899 PIECE DYEING MACHINE TENDER: SULMA 02/18/181899 RPT#: [id number] DC DATE:02/16/18 STATUS: DIS IN [facility] [address] [place] [address] END OF REPORT
--- NOTE | ~2018-02-13 | MORECARE ---
CASE MANAGEMENT DISCHARGE SUMMARY PATIENT: DIVYA PITT SOPHY UNIT: [id number] ADM DATE: 02/13/18 AGE: 52 : 61 SEX: F ROOM/BED: D.1209 AUTHOR: RONNELL,DOC PHYSICIAN: REFERRING PHYSICIAN: DONOVAN BORJA DO DATE OF SERVICE: 02/13/18 Discharge Plan Patient Name: DIVYA PITT Facility: [facility]:[place] : 1965 Planned Disposition: Home Anticipated Discharge Date: Discharge Date: Expected LOS: Initial Reviewer: [email or web address] Initial Review Date: 02/13/2018 Generated: 02/13/18 11:00 pm Comments DCP- Discharge Planning Updated by [email or web address]: Annie Lovell on 02/13/18 8:[address] Patient Name: DIVYA PITT Admission Status: Elective Accout number: [id number] Admission Date: 02-13-2018 : 1965 Admission Diagnosis: Attending: DONOVAN BORJA Current LOS: 1 Anticipated DC Date: Planned Disposition: Home Primary Insurance: [facility] MEDICARE SOLUTIONS Discharge Planning Comments: CM met with patient and spouse at bedside after obtaining verbal consent. Patient states she plans on returning home after discharge with her . Patient states she thinks she needs home 02. CM explained that we may have to do some testing to see if she can qualify for home 02. CM will continue to follow and assist as needed for discharge planning / needs. Quartz Orientator: Annie Lovell DCPIA - Discharge Planning Initial Assessment Updated by [email or web address]: Annie Lovell on 02/13/18 9:56 pm * Is the patient Alert and Oriented? Yes * How many steps to enter\exit or inside your home? * PCP [facility] * [facility] * Preadmission Environment Home with Family * ADLs Independent * Equipment Cane * Other Equipment CPAP, nebulizer * List name and contact numbers for known caregivers / representatives who currently or will assist patient after discharge: Lopez Pitt [phone] * Verbal permission to speak to the caregivers and representatives has been obtained from the patient. Yes * Community resources currently utilized None * Additional services required to return to the preadmission environment? No * Can the patient safely return to the preadmission environment? Yes * Has this patient been hospitalized within the prior 30 days at any hospital? No Patient Name: DIVYA PITT Page 98179 at 2201 All edits/amendments must be made on the electronic document DICTATION DATE: 02/13/182199 SUPERVISOR MONEY ROOM: SULMA 02/13/182199 RPT#: [id number] [place] DATE: STATUS: ADM IN [facility] [address] [place] [address] END OF REPORT
[2018-02-13 14:17] VITALS: BP 132/84; Ht 154.9 cm; Wt 70.9 kg
[2018-02-13 15:48] LABS: BASOPHILS 0.1 % (0-2); EOSINOPHILS 1.8 % (0-7); HEMATOCRIT 40.6 % (36.0-48.0); IMMATURE GRANULOCYTES 0.7 % (0-5); LYMPHOCYTES 31.6 % (15-50); MCH 30.4 pg (26.0-34.0); MCHC 34.5 g/dL (31.0-37.0); MCV 88.3 fL (80.0-100.0); MEAN PLATELET VOLUME 9.8 fL (7.4-10.4); MONOCYTES 6.8 % (2-11); RDW 13.4 % (11.5-14.5); WBC 7.2 10x3/uL (4.8-10.8)
[2018-02-13 15:53] LABS: PLATELET COUNT 177 10x3/uL (130-400)
[2018-02-13 16:03] LABS: CALC OSMOLALITY 281 mosm/kg (275-300); CALCIUM 9.1 mg/dL (8.5-10.1); CARBON DIOXIDE 27.2 mmol/L (21.0-32.0); CHLORIDE - SERUM 97 mmol/L (98-107); CREATININE - SERUM 0.7 mg/dL (0.6-1.3); MAGNESIUM - SERUM 1.7 mg/dL (1.8-2.4); POTASSIUM - SERUM 4.1 mmol/L (3.5-5.1); SODIUM 133 mmol/L (136-145); UREA NITROGEN 10 mg/dL (7-18); eGFR NON AFRICAN AMERICAN > 90 mL/min (90-120)
[2018-02-13 16:17] LABS: GLUCOSE 397 mg/dL (74-106)
[2018-02-13 17:37] VITALS: BP 143/88
[2018-02-13 19:00] VITALS: BP 106/63
[2018-02-14 05:06] VITALS: BP 97/60
[2018-02-14 07:00] LABS: BASOPHILS 0.3 % (0-2); EOSINOPHILS 2.3 % (0-7); HEMATOCRIT 40.2 % (36.0-48.0); HEMOGLOBIN 13.8 g/dL (12-16); IMMATURE GRANULOCYTES 0.8 % (0-5); LYMPHOCYTES 32.4 % (15-50); MCH 30.6 pg (26.0-34.0); MCHC 34.3 g/dL (31.0-37.0); MCV 89.1 fL (80.0-100.0); MEAN PLATELET VOLUME 10.1 fL (7.4-10.4); MONOCYTES 7.7 % (2-11); NEUTROPHILS 56.5 % (40-80); PLATELET COUNT 172 10x3/uL (130-400); RBC 4.51 10x6/uL (4.00-5.40); RDW 13.5 % (11.5-14.5); WBC 7.4 10x3/uL (4.8-10.8)
[2018-02-14 07:02] LABS: CALC OSMOLALITY 282 mosm/kg (275-300); CALCIUM 8.7 mg/dL (8.5-10.1); CARBON DIOXIDE 31.2 mmol/L (21.0-32.0); CHLORIDE - SERUM 99 mmol/L (98-107); CREATININE - SERUM 0.5 mg/dL (0.6-1.3); GLUCOSE 251 mg/dL (74-106); MAGNESIUM - SERUM 1.6 mg/dL (1.8-2.4); POTASSIUM - SERUM 4.1 mmol/L (3.5-5.1); SODIUM 138 mmol/L (136-145); UREA NITROGEN 11 mg/dL (7-18); eGFR NON AFRICAN AMERICAN > 90 mL/min (90-120)
[2018-02-14 07:34] VITALS: BP 121/69
[2018-02-14 11:18] VITALS: BP 112/63
[2018-02-14 15:57] VITALS: BP 117/70
[2018-02-14 20:00] VITALS: BP 110/64
[2018-02-15] VITALS (7 sets, daily range): BP systolic 97–133; BP diastolic 71–87
[2018-02-15 06:47] LABS: BASOPHILS 0.1 % (0-2); EOSINOPHILS 0 % (0-7); HEMATOCRIT 41.2 % (36.0-48.0); HEMOGLOBIN 14.4 g/dL (12-16); IMMATURE GRANULOCYTES 0.5 % (0-5); LYMPHOCYTES 10.7 % (15-50); MCH 30.4 pg (26.0-34.0); MEAN PLATELET VOLUME 10.1 fL (7.4-10.4); MONOCYTES 1.6 % (2-11); NEUTROPHILS 87.1 % (40-80); PLATELET COUNT 172 10x3/uL (130-400); RBC 4.73 10x6/uL (4.00-5.40); RDW 13.1 % (11.5-14.5)
[2018-02-15 06:50] LABS: MCV 87.1 fL (80.0-100.0); WBC 10.8 10x3/uL (4.8-10.8)
[2018-02-15 07:10] LABS: ALBUMIN 3.2 g/dL (3.4-5.0); ALKALINE PHOSPHATASE 102 U/L (46-116); ALT (SGPT) 47 U/L (10-68); BILIRUBIN - TOTAL 0.36 mg/dL (0.2-1.3); CALCIUM 9.3 mg/dL (8.5-10.1); CARBON DIOXIDE 24.8 mmol/L (21.0-32.0); CHLORIDE - SERUM 98 mmol/L (98-107); PROTEIN - SERUM 7.2 g/dL (6.4-8.2); SODIUM 136 mmol/L (136-145); UREA NITROGEN 11 mg/dL (7-18)
[2018-02-15 07:12] LABS: CALC OSMOLALITY 283 mosm/kg (275-300); CREATININE - SERUM 0.7 mg/dL (0.6-1.3); GLUCOSE 332 mg/dL (74-106); eGFR NON AFRICAN AMERICAN > 90 mL/min (90-120)
[2018-02-15] MEDS ORDERED: RANITIDINE HCL150 M1 PO (21:13)
[2018-02-15] MEDS ORDERED: PROTONIX40 MG PO (21:14)
[2018-02-16 04:00] VITALS: BP 140/73
[2018-02-16 08:18] VITALS: BP 139/81
[2018-02-16 08:39] LABS: CALC OSMOLALITY 289 mosm/kg (275-300); CALCIUM 9.4 mg/dL (8.5-10.1); CARBON DIOXIDE 25.1 mmol/L (21.0-32.0); CHLORIDE - SERUM 101 mmol/L (98-107); CREATININE - SERUM 0.7 mg/dL (0.6-1.3); GLUCOSE 396 mg/dL (74-106); POTASSIUM - SERUM 4.2 mmol/L (3.5-5.1); SODIUM 136 mmol/L (136-145); UREA NITROGEN 15 mg/dL (7-18); eGFR NON AFRICAN AMERICAN > 90 mL/min (90-120)
[2018-02-16] MEDS ORDERED: IPRAT-ALBUT 0.5-3 ML UPD (09:05)
[2018-02-16] MEDS ORDERED: BROVANA15 MCG/2 M INH (09:05)
[2018-02-16] MEDS ORDERED: PULMICORT0.5 MG/21 UPD (09:06)
[2018-02-16] MEDS ORDERED: MUCINEX DM ER1 EAC1 PO (09:06)
[2018-02-16] MEDS ORDERED: SINGULAIR10 MG PO (09:06)
[2018-02-16] MEDS ORDERED: LEVOFLOXACIN500 MG PO (09:11)
[2018-02-16] MEDS ORDERED: PREDNISONE10 MG PO (09:11)
== END 2018-02-16 11:53 | disposition home or self-care (01) | DRG 190 ==
LOC: D.M3 12:15
PROVIDERS: Family Medicine
DX: J44.1 Chronic obstructive pulmonary disease with (acute) exacerbation (principal); J18.9 Pneumonia, unspecified organism; J44.0 Chronic obstructive pulmonary disease with (acute) lower respiratory infection; J20.9 Acute bronchitis, unspecified; Z87.891 Personal history of nicotine dependence; K21.9 Gastro-esophageal reflux disease without esophagitis

== ENCOUNTER 2018-03-30 07:20 | Observation (INO) | payer MEDICARE, MEDICAID ==
[2018-03-30] VITALS (7 sets, daily range): BP systolic 100–129; BP diastolic 63–86; Ht 154.9 cm; Wt 65.0 kg
[~2018-03-30] VITALS: Ht 154.9 cm; Wt 65.0 kg
--- NOTE | ~2018-03-30 | HEMODYNAMI ---
PATIENT:DIVYA PITT MEDICAL RECORD: [id number] : 61 LOCATION:[facility] D.2124 [facility]# [id number] ADMISSION DATE: 03/30/18 Generatedon:03/31/201811:31 Patient name: DIVYA PITT Patient #: [id number] : 1965 Date of study: 03/31/2018 Page: Of Hemodynamic Procedure Report Patient Data Patient Demographics Procedure consent was obtained First Name: DIVYA Gender: Female Last Name: YOANDY : 1965 [facility] Initial: SOPHY Age: 52 year(s) Patient #: [id number] Race: SSN: [id number] Additional ID: [id number] Contact details [address]: [address] [place] [address] State: [place] City: [place] Zip code: [address] Past Medical History Allergies Allergen Reaction Date Comments Reported Other 06/11/2014 Apple Juice, ASA, Motrin, allergy Geodon, Anti-inflammatories, Depakote, Augmentin Other 02/18/2016 Aspirin, Geodon, Ibuprofen, allergy Steroids, Depakote Other 07/11/2017 PCN, NSAIDS, Amoxicillin, allergy aspirin, coconut, divalproex sodium, ibuprofen, menthol, meperidine, potassium clavulante, ziprasidone HCL, ziprasidone mesylate, apple juice. Other 11/07/2017 MOTRIN,ASPIRIN,GODON,GABAPETIN, allergy DEPAKOTE,PCN,INSAIDS Other 03/31/2018 on chart allergy Admission Admission Data Admission Date: 03/30/2018 Admission Time: 9:16 Room #: D.2124 Procedure Procedure Types Cath Procedure Diagnostic Procedure C [facility] w/Coronaries Sedation Charges Moderate Sedation up to 15 minutes PCI Procedure Coronary Stent Coronary Stent Initial Procedure Description Procedure Date Procedure Date: 03/31/2018 Procedure Start Time: 11:07 Procedure End Time: 11:27 Procedure Staff Name Function Dayron Jason MD Performing Physician Joe Ambrocio RT Monitor Leroy Vanessa RN Nurse Ling Jerome RT Scrub Procedure Data Cath Procedure Fluoroscopy Diagnostic fluoroscopy Total fluoroscopy Time: 5.8 time: 5.8 min min Diagnostic fluoroscopy Total fluoroscopy dose: 943 dose: 943 mGy mGy Contrast Material Contrast Material Type Amount (ml) Isovue 300 133 Entry Location Entry Primary Successful Side Size Upsize Upsize Entry Closure Succes sful Closure Location (Fr) 1 (Fr) 2 (Fr) Remarks Device Remarks Femoral Right 5 Fr 6 Fr Exoseal artery Short Estimated blood loss: 10 ml Diagnostic catheters Device Type Used For End Catheter Placement MULTIPACK JL 4.0 5Fr Procedure catheter MULTIPACK 3DRC 5Fr Procedure catheter MULTIPACK Pigtail 5 Fr Procedure catheter Procedure Complications No complications Procedure Medications Medication Administration Route Dosage 0.9% NaCl I.V. 100 ml/hr Oxygen etCO2 Nasal cannula 2 l/min Heparin Flush Bag added to field 2 bags (1000units/500ml NS) Lidocaine 2% added to field 20 Versed I.V. 2 mg Fentanyl I.V. 100 mcg Heparin Bolus I.V. 5000 units Hemodynamics Rest Heart Rate: 101 (bpm) Gradients Valve Time Site Site Mean SEP/DFP Peak To Heart Use 1 2 (mmHg) (sec/min) Peak Rate (mmHg) (bpm) Aortic 11:12 LV AO 89 Snapshots Pre Cath Intra NCS Post Cath Vital Signs Time Heart Resp SPO2 etCO2 NIBP (mmHg) Rhythm Pain Sedation Rate (ipm) (%) (mmHg) Status Level (bpm) 10:55:46 97 14 96 38.6 154/99(137) NSR 8 (11) , 10(A) Utterly horrible 10:59:52 104 23 88 24.2 138/87(103) NSR 8 (11) , 10(A) Utterly horrible 11:04:00 103 22 86 0 126/90(104) NSR 8 (11) , 10(A) Utterly horrible 11:08:06 102 12 98 21.2 129/94(119) NSR 8 (11) , 10(A) Utterly horrible 11:13:01 104 19 92 0 147/88(114) NSR 0 (11) , 9(A) No pain 11:17:17 105 16 93 0 144/82(101) NSR 0 (11) , 9(A) No pain 11:21:27 106 20 92 12.1 145/84(115) NSR 0 (11) , 9(A) No pain 11:25:36 104 22 92 30.3 143/102(121) NSR 0 (11) , 10(A) No pain Medications Time Medication Route Dose Verified Delivered Reason Notes Effectiveness by by 10:59:09 0.9% NaCl I.V. 100 Leroy Leroy Per physician ml/hr Otf Vanessa RN RN 10:59:20 Oxygen etCO2 2 Leroy Leroy Per physician Nasal l/min Otf Vanessa cannula RN RN 10:59:31 Heparin Flush added 2 Leroy Leroy used for Bag to bags Otf Vanessa procedure (1000units/500ml field RN RN NS) 10:59:44 Lidocaine 2% added 20ml Leroy Leroy for local to vial Otf Vanessa anesthetic field TERAN RN 11:08:37 Versed I.V. 2 mg Leroy Leroy for sedation Otf Vanessa RN RN 11:08:51 Fentanyl I.V. 100 Leroy Leroy for sedation mcg Otf Vanessa RN RN 11:14:18 Heparin Bolus I.V. 5000 Leroy Leroy for units Otf Vanessa anticoagulation RN surgical orderly Log Time Note 10:46:05 Leroy Vanessa RN sent for patient. Start room use. 10:46:07 Time tracking: Call back (After hours or weekends) 10:46:16 Plan of Care:Hemodynamics will remain stable., Cardiac rhythm will remain stable., Comfort level will be maintained., Respiratory function will remain adequate., Patient/ family verbilizes understanding of procedure., Procedure tolerated without complication., Recovers from procedure without complications.. 10:48:48 Patient received from PCU to CCL 1 Alert and oriented. Tansferred to table in Supine position. 10:48:50 Warm blankets applied, and isidra hugger turned on for patient comfort. 10:48:50 Correct patient and procedure confirmed by team. 10:48:52 Signed procedure consent form obtained from patient. 10:48:53 ECG and BP/O2 sat monitors applied to patient. 10:48:54 Full Disclosure recording started 10:54:46 Vital chart was started 10:59:09 0.9% NaCl 100 ml/hr I.V. was administered by Leroy Vanessa RN; Per physician; 10:59:20 Oxygen 2 l/min etCO2 Nasal cannula was administered by Leroy Vanessa RN; Per physician; 10:59:31 Heparin Flush Bag (1000units/500ml NS) 2 bags added to field was administered by Leroy Vanessa RN; used for procedure; 10:59:44 Lidocaine 2% 20ml vial added to field was administered by Leroy Vanessa RN; for local anesthetic; 11:02:26 Baseline sample Acquired. 11:02:36 Rhythm: sinus rhythm 11:04:43 H&P Date Dictated: 03/30/2018 Within 30 days and on chart.. 11:04:45 Pre-procedure instructions explained to patient. 11:04:46 Pre-op teaching completed and patient verbalized understanding. 11:04:48 Family unavailable. 11:04:50 Patient NPO since Midnight. 11:05:12 Patient allergic to Other allergyon chart 11:05:14 Is the patient allergic to Iodine/contrast media? No. 11:05:16 Is patient on blood thinner?Yes 11:05:17 Patient diabetic? Yes. 11:05:18 If diabetic: On Metformin? No 11:05:20 ACC The patient was administered the following blood thiners within the last 24 hours: ACCPlavix, ACCLovenox 11:05:20 Previous problem with sedation/anesthesia? No ? 11:05:28 Snore? Yes 11:05:29 Sleep apnea? Yes 11:05:30 Deviated septum? No 11:05:30 Opens mouth fully? Yes 11:05:31 Sticks out tongue? Yes 11:05:33 Airway obstruction? No ? 11:05:35 Dentures? Yes out 11:05:38 Pre procedure: right dorsailis pedis pulse 2+ Normal; easily identifiable; not easily obliterated 11:05:40 Patient pain scale 0/10 ?. 11:05:49 Patient pain scale 8/10 chest pain. 11:06:13 IV patent on arrival in port with 0.9% NaCl at [facility]. 11:06:15 Lab results completed and on chart. 11:06:17 Right groin area was prepped with chlora-prep and draped in sterile fashion 11:06:18 Alarms reviewed by Cleve Li 11:06:19 Sharps counted by scrub and verified by R.N. 11:06:21 Use device set Femoral Dx 11:06:22 ACIST Syringe (49103) opened to sterile field. 11:06:22 Bag Decanter (2002S) opened to sterile field. 11:06:22 Medline Cath Pack ([id number]) opened to sterile field. 11:06:23 ACIST Hand Control (95097) opened to sterile field. 11:06:24 ACIST Manifold (12338) opened to sterile field. 11:06:25 Tegaderm 4 x 4 (1626W) opened to sterile field. 11:06:26 SHEATH 5FR [place] (GVG221) opened to sterile field. 11:06:27 DIAGNOSTIC WIRE .035 260cm J wire (061697) opened to sterile field. 11:06:27 DIAGNOSTIC Multipack 5Fr catheter set (IC1287) opened to sterile field. 11:07:10 Physician arrived 11:07:10 --------ALL STOP TIME OUT------ 11:07:11 Final Timeout: patient, procedure, and site verified with staff and physician. All members of the team are in agreement. 11:07:13 Right groin site verified by team. 11:07:17 Physical assessment completed. ASA score P 2 - A patient with mild systemic disease as per Dayron Jason MD. 11:07:19 Sedation plan: IV Moderate Sedation Medication:Versed, Fentanyl 11:07:25 Procedure started. 11:07:28 Local anesthetic to right femoral artery with Lidocaine 2% by Dayron Jason MD.INITIAL ACCESS ONLY 11:07:36 A 5 Fr sheath was inserted into the Right Femoral artery 11:08:29 Zero performed for pressure channel P1 11:08:37 Versed 2 mg I.V. was administered by Leroy Vanessa RN; for sedation; 11:08:48 A MULTIPACK JL 4.0 5Fr catheter was advanced over the wire and used for Procedure. 11:08:51 Fentanyl 100 mcg I.V. was administered by Leroy Vanessa RN; for sedation; 11:09:40 LCA angiography performed. 11:09:58 WHISPER 300cm guide wire ([id number]) opened to sterile field. 11:09:59 INFLATOR Merit BasixCompak (XR4605) opened to sterile field. 11:10:00 SHEATH 6FR [place] (NQL410) opened to sterile field. 11:10:03 Catheter exchanged over wire. 11:10:09 A MULTIPACK 3DRC 5Fr catheter was advanced over the wire and used for Procedure. 11:11:12 RCA angiography performed. 11:11:14 Catheter exchanged over wire. 11:11:18 A MULTIPACK Pigtail 5 Fr catheter was advanced over the wire and used for Procedure. 11:12:14 LV hemodynamics recorded. 11:12:38 LV gram done using LARSEN 11:12:45 EF : 55 % 11:12:47 Catheter removed. 11:12:58 Sheath upsized to a 6 Fr Short. 11:13:58 GUIDE 6FR JL 4.0 catheter ([id number]) opened to sterile field. 11:14:18 Heparin Bolus 5000 units I.V. was administered by Leroy Vanessa RN; for anticoagulation; 11:14:49 6 Fr jl 4 guide catheter was inserted over the wire 11:15:36 Guide Catheter removed. pressure damping. 11:15:51 GUIDE 6FR JL 4.0 SH catheter ([id number]) opened to sterile field. 11:16:24 6 Fr JL 4 SH guide catheter was inserted over the wire 11:16:31 WHISPER wire advanced. 11:18:30 Wire advanced across lesion. 11:19:56 Inflate balloon Inflation number: 1 A EMERGE OTW 3.0 x 20 balloon ([id number]) was prepped and advanced across the Mid LAD, then inflated to 10 RENNY for 0:45 (min:sec). 11:20:49 Inflation number: 2 The EMERGE OTW 3.0 x 20 balloon ([id number]) was reinflated across the Mid LAD, to 10 RENNY for 0:45 (min:sec). 11:22:00 Balloon removed over the wire. 11:24:46 Place stent Inflation Number: 3 A TANMAY OTW 3.0 x 12 stent ([id number]) was prepped and advanced across the Mid LAD. The stent was deployed at 12 RENNY for 0:30 (min:sec). 11:25:47 Inflation number: 4 The stent balloon was then re-inflated across the Mid LAD to 10 RENNY for 0:45 (min:sec). 11:26:00 Stent catheter was removed intact over wire. 11:26: Wire removed. 11:26:01 Guide catheter removed. 11:26:10 EXOSEAL 6Fr (EX600) opened to sterile field. 11:26:21 Sheath removed intact; hemostasis achieved with Exoseal to the Right Femoral artery. 11:26:23 Procedure ended.(Physican Out) 11:26:31 Fluoroscopy time 05.80 minutes. 11::35 Fluoroscopy dose: 943 mGy 11::35 Flurop Dose total: 943 11::39 Contrast amount:Isovue 300 133ml. 11:26:40 Sharps counted by scrub and verified by R.N. 11:26:42 Insertion/operative site no bleeding no hematoma. 11:26:45 Post-op/insertion site Right Femoral artery dressed using a 4 x 4 and Tegaderm. 11:26:49 Post right femoral artery:stable, soft, clean and dry 11:26:50 Post Procedure Pulses reassessed and unchanged 11:26:52 Post-procedure physical assessment completed. ASA score P 2 - A patient with mild systemic disease as per Dayron Jason MD. 11:26:55 Post procedure rhythm: unchanged. 11:26:57 Estimated blood loss: 10 ml 11:26:58 Post procedure instruction explained to patient.Patient verbalizes understanding. 11:26:59 Patient needs reinforcement of post procedure teaching. 11:27:12 Procedure type changed to Cath procedure, Diagnostic procedure, LHC, LHC w/Coronaries, Sedation Charges, Moderate Sedation up to 15 minutes, PCI procedure, Coronary Stent, Coronary Stent Initial 11:27:37 Procedure and supply charges have been captured, reviewed, submitted and are correct. 11:27:39 Procedure Complication : No complications 11:27:41 Vital chart was stopped 11:27:41 See physician's report for complete and final results. 11:27:43 Report given to PCU. 11::45 Patient transfered to PCU with Stretcher. 11:27:47 Procedure ended. 11:27:47 Full Disclosure recording stopped 11:27:50 End room use (Document Last) Intervention Summary Intervention Notes Time ActionType Lesion and Equipment Action# Pressure Duration Attributes Used 11:19:56 Inflate Mid LAD EMERGE OTW 1 10 00:45 balloon 3.0 x 20 balloon ([id number]) 11:20:49 Reinflate Mid LAD EMERGE OTW 2 10 00:45 balloon 3.0 x 20 balloon ([id number]) 11:24:46 Place stent Mid LAD TANMAY OTW 3.0 3 12 00:30 x 12 stent ([id number]) 11:25:47 Reinflate Mid LAD TANMAY OTW 3.0 4 10 00:45 stent x 12 stent balloon ([id number]) Device Usage Item Name Manufacture Quantity Catalog Number Hospital Part Current Min imal Lot# / Charge Number Stock Stock Serial# Code ACIST Syringe Acist 1 73280 296349 835110 588978 20 (10677) Medical Systems Inc Bag Decanter Microtek 1 260417 83500 309245 5 () Medical Inc. Medline Cath Medline 1 [id number] 899578 77793 881774 5 Pack ([id number]) ACIST Hand Acist 1 33128 618106 347095 223961 5 Control Medical (94412) Systems Inc ACIST Acist 1 68991 719078 176878 217665 5 Manifold Medical (33488) Systems Inc Tegaderm 4 x 3M 1 1626W 590622 524244 236905 5 4 (1626W) SHEATH 5FR Terumo 1 RSV827 337580 239782 917664 5 Skidmore (VOU171) DIAGNOSTIC St Zana 1 699764 654561 714405 518699 30 WIRE .035 260cm J wire (977295) DIAGNOSTIC Cardinal 1 MZ7267 654163 45684 398351 30 Multipack 5Fr Health catheter set (DN8847) MULTIPACK JL Cardinal 1 155597 5 4.0 5Fr Health catheter WHISPER 300cm Ron 1 [id number] 629452 220032 111544 5 guide wire Vascular ([id number]) INFLATOR Merit 1 QC4145 696026 874008 056378 15 [facility] BasixCompak (HN3723) SHEATH 6FR Terumo 1 VIY255 895640 466104 111996 40 Skidmore (JAT605) MULTIPACK Cardinal 1 679525 5 3DRC 5Fr Health catheter MULTIPACK Cardinal 1 150006 5 Pigtail 5 Fr Health catheter GUIDE 6FR JL Medtronic 1 [id number] 546174 45172 093549 1 4.0 catheter (MN1YU46) GUIDE 6FR JL Medtronic 1 [id number] 627286 81361 565341 1 4.0 SH catheter ([id number]) EMERGE OTW [place] 1 [id number] 384881 710918 947832 5 [id number] 3.0 x 20 Scientific balloon ([id number]) TANMAY OTW 3.0 Medtronic 1 [id number] 655010 196225 089774 5 [id number] x 12 stent ([id number]) EXOSEAL 6Fr Cardinal 1 EX600 250944 537174 264579 10 (EX600) Health Signature Audit [place] Stage Time Signature Unsigned Intra-Procedure 03/31/2018 Joe Ambrocio 11:31:43 AM RT(R) Signatures Monitor : Joe Ambrocio RT Signature : Date : Time : [place] [id number] [place] [address]
--- NOTE | ~2018-03-30 | CN ---
PATIENT NAME:DIVYA PITT MEDICAL RECORD: [id number] : 61 LOCATION:D. D.2124 ADMIT DATE: 03/30/18 ACCOUNT: [id number] CONSULTING PHYSICIAN: DENISE VEE MD REFERRING PHYSICIAN: STEVEN HINKLE MD DATE OF CONSULTATION: 03/31/2018 HISTORY OF PRESENT ILLNESS: A 52-year-old lady with a known history of coronary artery disease, status post intervention, has a history of hypertension, diabetes mellitus, been under significant social stressors as of late, has been having chest pain for the past 2-3 days, progression to rest symptomology. Most recent intervention approximately 1 year ago with Med drug-eluting stents. She is quite tearful during history. We are asked to see her concerning cardiovascular status. PAST MEDICAL HISTORY: Includes; 1. History of coronary artery disease as described above. No obstructive pulmonary disease. 2. Hypertension. 3. Diabetes mellitus. ALLERGIES: INCLUDE NONSTEROIDALS, AMOXICILLIN, GEODON. MEDICATIONS: Include insulin per scale, ondansetron 8 mg every 6 hours p.r.n., Pulmicort 0.5 b.i.d., tramadol 50 every 8 hours p.r.n., Lasix 40 every day, carvedilol 12.5 b.i.d., DuoNeb inhaler. SOCIAL HISTORY: Lives here in [place], smokes less than a pack a day, has been under significant social stress. No set exercise program. REVIEW OF SYSTEMS: The patient reports easy bruising but reports no swollen glands. The patient reports no fever, no night sweats, no significant weight gain, no significant weight loss. No significant exercise tolerance. The patient reports no dry eyes, no irritation, no vision change. Patient reports no difficulty hearing and no ear pain. Patient reports no frequent nose bleeds or nose and sinus problems. Patient reports on arm pain on exertion. No shortness of breath while lying down. No history of heart murmur. Patient reports no cough, no wheezing or coughing up blood. Patient reports no abdominal pain, no vomiting. Normal appetite. No diarrhea and not vomiting blood. No nausea and no constipation. Patient reports no incontinence. No difficulty urinating. No hematuria. No increased frequency. Patient reports no muscle aches. No weakness, no arthralgias, no back pain. No swelling of the extremities. Patient reports no abnormal mole, no jaundice, no rashes. Reports no loss of consciousness. No weakness and no numbness. No seizures, dizziness, or headaches. The patient reports no depression, no sleep disturbance, feeling safe in a relationship and no alcohol abuse. Patient reports on fatigue. Reports no runny nose or sinus pressure. No itching, no hives, and no frequent sneezing. PHYSICAL EXAMINATION: GENERAL: Anxious female and does not appear in obvious distress. VITAL SIGNS: Blood pressure 122/83, pulse 98 and regular. HEENT: Normocephalic, atraumatic. NECK: No JVD or bruit. HEART: Regular. CONSULT REPORT [id number] DIVYA PITT LUNGS: Fair air excursion, few expiratory wheezes. ABDOMEN: Soft, nontender. EXTREMITIES: Pulse 2+ with no edema. IMPRESSION: Acute coronary syndrome, known history of coronary artery disease, rest symptomology. PLAN: Angiography intervention based on above. TRANSINT:[id number] Voice Confirmation ID: [id number] DOCUMENT ID: [id number] DENISE VEE MD CC: [id number] DICTATION DATE: 03/31/18928 DISABILITY BENEFITS SPECIALIST: 03/31/18 1356 ADM IN [facility] [address] [place] [id number]
--- NOTE | ~2018-03-30 | OP ---
PATIENT NAME: DIVYA PITT MEDICAL RECORD: [id number] :61 LOCATION:D.M2 D.2124 ADMISSION DATE:03/30/18 SURGEON: DENISE VEE MD DATE OF OPERATION: 03/31/2018 PROCEDURE: Left heart catheterization, selective coronary angiography, right femoral artery approach. CATHETERS: A 5-[place]izen [place] sheath, 5/4 left and right Heena, 5/4 pig. The procedure was well tolerated. The patient was returned to garcia. Sheath was removed. Adequate hemostasis was obtained. FINDINGS: Left ventriculography in 30-degree LARSEN view: Normal wall motion and normal systolic function. CORONARY ANATOMY: LEFT MAIN: Left main is free of disease. LAD: It has a very discrete area of restenosis, 95% in its mid portion. The rest of stent area looks widely patent. CIRCUMFLEX: Free of disease. RIGHT CORONARY ARTERY: Free of disease. IMPRESSION: Restenotic stent in the LAD. PLAN: Intervention momentarily. DESCRIPTION: The 5-[place]izen [place] sheath was exchanged for a 6-[place]izen [place] sheath. JL-4 guide with sidehole had excellent guide catheter support. A Whisper wire was placed across the occluded LAD. Pre-deployment balloon used was 3.0 [place], up to 14 atmospheres. This still showed significant elastic recoil and some haziness. A 3.0 x 12-mm [place] drug-eluting stent was inflated up to 12 atmospheres for 45 seconds. Final injection showed excellent resolution of a 95% restenosis. No significant residual. FLORINA flow was 3 throughout the case. The patient was previously on Plavix. Heparin was used. TRANSINT:[id number] Voice Confirmation ID: [id number] DOCUMENT ID: [id number] DENISE VEE MD CC: [id number] DICTATION DATE: 03/31/18 1133 ICT PROGRAMMER: 03/31/18 1403 ADM IN [facility] [address] [place] [address]
[~2018-03-30 07:20] MED LIST changes: +BROVANA15 MCG/2 M INH; +IPRAT-ALBUT 0.5-3 ML UPD; +LEVOFLOXACIN500 MG PO; +MUCINEX DM ER1 EAC1 PO; +PREDNISONE10 MG PO; +PULMICORT0.5 MG/21 UPD; +RANITIDINE HCL150 M1 PO; +SINGULAIR10 MG PO
[2018-03-30 08:19] LABS: BASOPHILS 0.2 % (0-2); EOSINOPHILS 3.2 % (0-7); HEMATOCRIT 41.5 % (36.0-48.0); HEMOGLOBIN 14.5 g/dL (12-16); IMMATURE GRANULOCYTES 0.6 % (0-5); LYMPHOCYTES 29.5 % (15-50); MCH 30.1 pg (26.0-34.0); MCHC 34.9 g/dL (31.0-37.0); MCV 86.1 fL (80.0-100.0); MEAN PLATELET VOLUME 9.7 fL (7.4-10.4); MONOCYTES 6.3 % (2-11); NEUTROPHILS 60.2 % (40-80); PLATELET COUNT 171 10x3/uL (130-400); RBC 4.82 10x6/uL (4.00-5.40); RDW 13.4 % (11.5-14.5); WBC 8.8 10x3/uL (4.8-10.8)
[2018-03-30 08:34] LABS: ALBUMIN 3.1 g/dL (3.4-5.0); ALKALINE PHOSPHATASE 86 U/L (46-116); ALT (SGPT) 43 U/L (10-68); CALC OSMOLALITY 286 mosm/kg (275-300); CALCIUM 8.4 mg/dL (8.5-10.1); CARBON DIOXIDE 24.4 mmol/L (21.0-32.0); CHLORIDE - SERUM 104 mmol/L (98-107); CREATININE - SERUM 0.5 mg/dL (0.6-1.3); POTASSIUM - SERUM 3.7 mmol/L (3.5-5.1); PROTEIN - SERUM 6.8 g/dL (6.4-8.2); SODIUM 140 mmol/L (136-145); UREA NITROGEN 8 mg/dL (7-18); eGFR NON AFRICAN AMERICAN > 90 mL/min (90-120)
[2018-03-30 08:37] LABS: GLUCOSE 275 mg/dL (74-106)
[2018-03-30 08:44] LABS: CKMB 0.7 U/L (0.0-3.6); CREATINE KINASE 37 UL (21-215); MAGNESIUM - SERUM 1.5 mg/dL (1.8-2.4); TROPONIN-I < 0.017 ng/mL (0.000-0.060)
[2018-03-30 09:05] LABS: APTT 24.1 SECONDS (22.8-39.4); PROTIME 13.1 SECONDS (11.6-15.0)
[2018-03-30 09:31] LABS: D-DIMER-QUANTITATIVE 0.3 ug/mLFEU (0.20-0.54)
--- NOTE | 2018-03-30 10:59 | NUR ---
PT RESTING WITH EYES CLOSED, NO DISCOMFORT NOTED.
[2018-03-30 13:01] LABS: CKMB 0.4 U/L (0.0-3.6); CREATINE KINASE 36 UL (21-215)
[2018-03-30 13:04] LABS: TROPONIN-I < 0.017 ng/mL (0.000-0.060)
--- NOTE | 2018-03-30 15:07 | NUR ---
DR. HINKLE BY TO SEE PT. PT CALLED NURSE TO ROOM, C/O PAIN . MORPHINE GIVEN PER ORDERS.
--- NOTE | 2018-03-30 17:10 | NUR ---
WAITING ON MED 2 TO CALL BACK FOR REPORT.
--- NOTE | 2018-03-30 17:41 | NUR ---
PT C/O PAIN, MORPHINE GIVEN PER ORDERS ALONG WITH ZOFRAN FOR NAUSEA.
--- NOTE | 2018-03-30 18:12 | NUR ---
RECIEVED FROM ER. ALERT AND ORIENTED. O2 AT 2. DENIES ANY NEEDS.
[2018-03-30 18:13] LABS: CKMB 0.7 U/L (0.0-3.6); CREATINE KINASE 34 UL (21-215); TROPONIN-I < 0.017 ng/mL (0.000-0.060)
--- NOTE | 2018-03-30 20:02 | NUR ---
INITIAL REPORT AND ROUNDS COMPLETED. SEE ASSESSMENT.
[2018-03-31 01:19] VITALS: BP 108/62
--- NOTE | 2018-03-31 02:18 | NUR ---
CALLED TO ROOM. PT IN TEARS. SAYS SHE NEEDS PAIN MEDICATION FOR HER CHEST. PROVIDED NITRO 0.4MG SL X 1 AND THEN GAVE MORPHINE 4 MG SIVP. AT BEDSIDE. PT MUCH LESS EMOTIONAL AFTER MEDS RECIEVED.
[2018-03-31 04:57] VITALS: BP 121/77
[2018-03-31 05:59] LABS: BASOPHILS 0.3 % (0-2); EOSINOPHILS 3.5 % (0-7); HEMATOCRIT 42.4 % (36.0-48.0); HEMOGLOBIN 14.3 g/dL (12-16); IMMATURE GRANULOCYTES 0.6 % (0-5); MCH 29.9 pg (26.0-34.0); MCHC 33.7 g/dL (31.0-37.0); MEAN PLATELET VOLUME 9.8 fL (7.4-10.4); NEUTROPHILS 52.6 % (40-80); PLATELET COUNT 179 10x3/uL (130-400); RBC 4.79 10x6/uL (4.00-5.40); RDW 13.7 % (11.5-14.5); WBC 7.9 10x3/uL (4.8-10.8)
[2018-03-31 06:18] LABS: MCV 88.5 fL (80.0-100.0)
--- NOTE | 2018-03-31 06:31 | NUR ---
NOW C/O NECK PAIN, THEN WHEN NURSE BROUGHT PAIN MED TO ROOM, PT THEN SAID HER BACK IS KILLING HER. SHE ALSO SAID SHE GOES TO A PAIN DOCTOR AND IS GOING TO SEE A SURGICAL NEUROLOGIST SOON. MEDICATED WITH MORPHINE AND ZOFRAN IV FOR PAIN.
[2018-03-31 06:45] LABS: ALBUMIN 3.2 g/dL (3.4-5.0); ALKALINE PHOSPHATASE 83 U/L (46-116); ALT (SGPT) 48 U/L (10-68); BILIRUBIN - TOTAL 0.33 mg/dL (0.2-1.3); CALCIUM 8.7 mg/dL (8.5-10.1); CARBON DIOXIDE 26.7 mmol/L (21.0-32.0); CHLORIDE - SERUM 105 mmol/L (98-107); CREATININE - SERUM 0.6 mg/dL (0.6-1.3); MAGNESIUM - SERUM 1.7 mg/dL (1.8-2.4); POTASSIUM - SERUM 3.8 mmol/L (3.5-5.1); PROTEIN - SERUM 6.8 g/dL (6.4-8.2); SODIUM 141 mmol/L (136-145); eGFR NON AFRICAN AMERICAN > 90 mL/min (90-120)
[2018-03-31 06:52] LABS: CALC OSMOLALITY 282 mosm/kg (275-300); GLUCOSE 185 mg/dL (74-106); UREA NITROGEN 5 mg/dL (7-18)
[2018-03-31 08:32] VITALS: BP 122/83
--- NOTE | 2018-03-31 10:33 | NUR ---
ALERT AND ORIENTED X4. SITTING UP IN BED. SPOUSE AT BEDSIDE. CONSENTS FOR RV TECHNICIAN SIGNED ON CHART. PREOP COMPLETE. CONTINUE PLAN OF CARE AND SAFETY PRECAUTIONS.
--- NOTE | 2018-03-31 11:50 | NUR ---
RETURN TO ROOM VIA BED FROM ATTENDING PATHOLOGIST. SEDATED, AROUSES TO STIMULI. BP-152/79, HR-104, O2-92% WITH 4L NC. RT GROIN DRESSING CLEAN DRY INTACT. FREE FROM BLEEDING. FREE FROM HEMATOMA. PULSE PALPABLE BILATERALLY. CONTINUE PLAN OF CARE. ARRIVES TO ROOM TO SPEAK WITH SPOUSE. SPOUSE NOT IN ROOM. CONTINUE SAFETY PRECAUTIONS.
[2018-03-31] MEDS ORDERED: PLAVIX75 MG PO (15:26)
[2018-03-31 16:31] VITALS: BP 115/65
--- NOTE | 2018-03-31 18:11 | NUR ---
ALERT AND ORIENTED X4. SITTING UP IN BED. RT GROIN DRESSING CLEAN DRY INTACT. FREE FROM HEMATOMA. FREE FROM BLEEDING. HEPARIN LOCK RT CHEST IP. DC RT CHEST IP TIP INTACT. DISCHARGE INSTRUCTIONS GIVEN VERBALLY AND WRITTEN. DISCHARGE PAPERS SIGNED ON CHART. ESCORT TO RIDE VIA WHEELCHAIR. REMAINS FREE FROM INJURY.
--- NOTE | 2018-04-01 11:32 | MORECARE ---
CASE MANAGEMENT DISCHARGE SUMMARY PATIENT: DIVYA PITT SOPHY UNIT: [id number] ADM DATE: 03/30/18 AGE: 52 : 61 SEX: F ROOM/BED: D.7174 AUTHOR: SAYRA REYNAGA PHYSICIAN: REFERRING PHYSICIAN: STEVEN HINKLE MD DATE OF SERVICE: 04/01/18 Discharge Plan Patient Name: [facility]YA [facility]ITT [facility] [facility] 1965 Planned Disposition: Home Anticipated Discharge Date: 03/31/18 Discharge Date: 03/31/2018 Expected LOS: 1 Initial Reviewer: [email or web address] Initial Review Date: 04/01/2018 Generated: 04/01/18 12:31 pm Patient Name: DIVYA PITT Page [phone] at 1132 All edits/amendments must be made on the electronic document DICTATION DATE: 04/01/18 1131 GAS WELDING EQUIPMENT MECHANIC: SULMA 04/01/18 1131 RPT#: [id number] DC DATE:03/31/18 STATUS: DIS IN [facility] [address] [place] [address] END OF REPORT
== END 2018-03-31 18:13 | disposition home or self-care (01) ==
LOC: D.ER 07:20 → D.EDHOLD 09:16 → OBSVTIME 09:16 → D.M2 16:26
PROVIDERS: Emergency Medicine; ADMIT Emergency Medicine
DX: I25.119 Atherosclerotic heart disease of native coronary artery with unspecified angina pectoris (principal); Z95.5 Presence of coronary angioplasty implant and graft; T82.855A Stenosis of coronary artery stent, initial encounter; Y83.8 Other surgical procedures as the cause of abnormal reaction of the patient, or of later complication, without mention of misadventure at the time of the procedure; I10 Essential (primary) hypertension; E11.65 Type 2 diabetes mellitus with hyperglycemia; E11.43 Type 2 diabetes mellitus with diabetic autonomic (poly)neuropathy; K31.84 Gastroparesis; J44.9 Chronic obstructive pulmonary disease, unspecified; Z72.0 Tobacco use
CPT/HCPCS: 93458; C9600

== ENCOUNTER 2018-04-08 17:06 | Emergency (ER) | payer MEDICARE, MEDICAID ==
[~2018-04-08] VITALS: Ht 154.9 cm; Wt 67.3 kg
[2018-04-08 17:09] VITALS: Ht 154.9 cm; Wt 67.3 kg
[2018-04-08 17:55] LABS: BASOPHILS 0.4 % (0-2); EOSINOPHILS 2.7 % (0-7); HEMATOCRIT 41.4 % (36.0-48.0); HEMOGLOBIN 14.5 g/dL (12-16); IMMATURE GRANULOCYTES 0.4 % (0-5); LYMPHOCYTES 35.8 % (15-50); MCH 30.3 pg (26.0-34.0); MCV 86.6 fL (80.0-100.0); MEAN PLATELET VOLUME 9.7 fL (7.4-10.4); MONOCYTES 6.9 % (2-11); NEUTROPHILS 53.8 % (40-80); PLATELET COUNT 187 10x3/uL (130-400); RBC 4.78 10x6/uL (4.00-5.40); RDW 13.6 % (11.5-14.5); WBC 10.2 10x3/uL (4.8-10.8)
[2018-04-08 18:08] LABS: ALBUMIN 3.3 g/dL (3.4-5.0); ALKALINE PHOSPHATASE 89 U/L (46-116); ALT (SGPT) 47 U/L (10-68); BILIRUBIN - TOTAL 0.32 mg/dL (0.2-1.3); CALC OSMOLALITY 283 mosm/kg (275-300); CALCIUM 8.9 mg/dL (8.5-10.1); CARBON DIOXIDE 23.5 mmol/L (21.0-32.0); CHLORIDE - SERUM 103 mmol/L (98-107); CREATININE - SERUM 0.6 mg/dL (0.6-1.3); POTASSIUM - SERUM 3.9 mmol/L (3.5-5.1); PROTEIN - SERUM 7.1 g/dL (6.4-8.2); SODIUM 139 mmol/L (136-145); UREA NITROGEN 8 mg/dL (7-18); eGFR NON AFRICAN AMERICAN > 90 mL/min (90-120)
[2018-04-08 18:09] LABS: GLUCOSE 250 mg/dL (74-106)
[2018-04-08 18:19] LABS: CKMB 0.7 U/L (0.0-3.6); CREATINE KINASE 26 UL (21-215); MAGNESIUM - SERUM 1.7 mg/dL (1.8-2.4); TROPONIN-I < 0.017 ng/mL (0.000-0.060)
[2018-04-08 18:25] LABS: PRO BNP 8 pg/mL (0-125)
[2018-04-08 21:11] VITALS: BP 137/88
== END 2018-04-08 21:11 | disposition home or self-care (01) ==
LOC: D.ER 17:06
PROVIDERS: Emergency Medicine
DX: R07.9 Chest pain, unspecified (principal); I25.10 Atherosclerotic heart disease of native coronary artery without angina pectoris; J44.9 Chronic obstructive pulmonary disease, unspecified; E11.9 Type 2 diabetes mellitus without complications; I10 Essential (primary) hypertension; G35 Multiple sclerosis

== ENCOUNTER 2018-05-03 07:44 | Outpatient (CLI) | payer MEDICARE, MEDICAID ==
[~2018-05-03] VITALS: Ht 154.9 cm; Wt 69.1 kg
--- NOTE | ~2018-05-03 | HEMODYNAMI ---
PATIENT:DIVYA PITT MEDICAL RECORD: [id number] : 61 LOCATION:DPREETI ADMISSION DATE: 05/03/18 Generatedon:05/03/201811:17 Patient name: DIVYA PITT Patient #: [id number] : 1965 Date of study: 05/03/2018 Page: Of Hemodynamic Procedure Report Patient Data Patient Demographics Procedure consent was obtained First Name: DIVYA Gender: Female Last Name: YOANDY : 1965 Middle Initial: SOPHY Age: 52 year(s) Patient #: [id number] Race: SSN: [id number] Additional ID: [id number] Contact details [address]: [address] [place] [address] State: [place] City: [place] Zip code: [address] Past Medical History Allergies Allergen Reaction Date Comments Reported Other 06/11/2014 Apple Juice, ASA, Motrin, allergy Geodon, Anti-inflammatories, Depakote, Augmentin Other 02/18/2016 Aspirin, Geodon, Ibuprofen, allergy Steroids, Depakote Other 07/11/2017 PCN, NSAIDS, Amoxicillin, allergy aspirin, coconut, divalproex sodium, ibuprofen, menthol, meperidine, potassium clavulante, ziprasidone HCL, ziprasidone mesylate, apple juice. Other 11/07/2017 MOTRIN,ASPIRIN,GODON,GABAPETIN, allergy DEPAKOTE,PCN,INSAIDS Other 03/31/2018 on chart allergy Admission Admission Data Admission Date: 05/03/2018 Admission Time: 7:44 Procedure Procedure Types Cath Procedure Peripheral Cath Diagnostic Procedure Gage Designer Peripheral Procedures Zqwoh-Mhlzytg-Yky-Off Procedure Description Procedure Date Procedure Date: 05/03/2018 Procedure Start Time: 11:12 Procedure End Time: 11:16 Procedure Staff Name Function Dilan Pisano MD Performing Physician Thelma Fuentes RN Nurse Jonny Michelle RT Manager Program Management Dianne Walker RT Monitor Ling Jerome RT Scrub Procedure Data Cath Procedure Fluoroscopy Diagnostic fluoroscopy Total fluoroscopy Time: 0.4 time: 0.4 min min Diagnostic fluoroscopy Total fluoroscopy dose: 69 dose: 69 mGy mGy Contrast Material Contrast Material Type Amount (ml) Isovue 300 41 Entry Location Entry Primary Successful Side Size Upsize Upsize Entry Closure Succes sful Closure Location (Fr) 1 (Fr) 2 (Fr) Remarks Device Remarks Femoral Left 5 Fr Exoseal artery Estimated blood loss: 5 ml Diagnostic catheters Device Type Used For End Catheter Placement DIAGNOSTIC UF 5Fr Multi-vessel catheter ([id number]) Angiography Procedure Complications No complications Procedure Medications Medication Administration Route Dosage 0.9% NaCl I.V. 100 ml/hr Oxygen etCO2 Nasal cannula 2 l/min Lidocaine 2% added to field 20 Heparin Flush Bag added to field 2 bags (1000units/500ml NS) Versed I.V. 2 mg Fentanyl I.V. 50 mcg Versed I.V. 2 mg Fentanyl I.V. 50 mcg Hemodynamics Rest Heart Rate: 97 (bpm) Snapshots Pre Cath Intra NCS Post Cath Vital Signs Time Heart Resp SPO2 etCO2 NIBP (mmHg) Rhythm Pain Sedation Rate (ipm) (%) (mmHg) Status Level (bpm) 10:53:45 91 19 98 29 170/108(140) NSR 0 (11) 10(A) , No pain 10:57:59 99 23 97 28 148/92(115) NSR 0 (11) 10(A) , No pain 11:02:13 95 22 97 13.4 155/91(111) NSR 0 (11) 10(A) , No pain 11:06:25 96 18 96 10.4 138/90(115) NSR 0 (11) 10(A) , No pain 11:10:39 98 19 96 11.1 132/84(117) NSR 0 (11) 9(A) , No pain 11:14:49 100 20 96 15.6 150/91(132) NSR 0 (11) 10(A) , No pain Medications Time Medication Route Dose Verified Delivered Reason Notes Eff ectiveness by by 10:53:17 0.9% NaCl I.V. 100 Dilan Thelma used for ml/hr Norris Fuentes teleprinter installer 10:53:24 Oxygen etCO2 2 Dilan Thelma used for Nasal l/min Norris Fuentes procedure cannula RN 10:53:29 Lidocaine 2% added 20ml Dilan Kong for local to vial Norris Pisano MD anesthetic field 10:53:33 Heparin Flush added 2 Dilan Kong used for Bag to bags Norris Pisano MD procedure (1000units/500ml field NS) 11:02:06 Versed I.V. 2 mg Dilan Thelma for Norris Fuentes sedation RN 11:02:12 Fentanyl I.V. 50 Dilan Thelma for mcg Norris Fuentes sedation RN 11:07:31 Versed I.V. 2 mg Dilan Thelma for Norris Fuentes sedation RN 11:07:35 Fentanyl I.V. 50 Dilan Thelma for mcg Norris Fuentes sedation streetcar repairer helper Log Time Note 10:38:39 Jonny Michelle RT(R) sent for patient. Start room use. 10:38:40 Time tracking: Regular hours (M-F 7:00 - 5:00) 10:38:43 Plan of Care:Hemodynamics will remain stable., Cardiac rhythm will remain stable., Comfort level will be maintained., Respiratory function will remain adequate., Patient/ family verbilizes understanding of procedure., Procedure tolerated without complication., Recovers from procedure without complications.. 10:52:30 Patient received from Pre/Post Procedure Room to CCL 1 Alert and oriented. Tansferred to table in Supine position. 10:52:31 Warm blankets applied, and isidra hugger turned on for patient comfort. 10:52:31 Correct patient and procedure confirmed by team. 10:52:32 Signed procedure consent form obtained from patient. 10:52:33 ECG and BP/O2 sat monitors applied to patient. 10:52:34 Vital chart was started 10:52:34 Full Disclosure recording started 10:53:17 0.9% NaCl 100 ml/hr I.V. was administered by Thelma Fuentes RN; used for procedure; 10:53:24 Oxygen 2 l/min etCO2 Nasal cannula was administered by Thelma Fuentes RN; used for procedure; 10:53:29 Lidocaine 2% 20ml vial added to field was administered by Dilan Pisano MD; for local anesthetic; 10:53:33 Heparin Flush Bag (1000units/500ml NS) 2 bags added to field was administered by Dilan Pisano MD; used for procedure; 10:57:11 Baseline sample Acquired. 10:57:17 Rhythm: sinus rhythm 10:57:26 H&P Date Dictated: 05/03/2018 Within 30 days and on chart., H&P Addendum completed by physician on day of procedure. (MUST COMPLETE FOR ALL OUTPATIENTS). 10:57:28 Pre-procedure instructions explained to patient. 10:57:29 Pre-op teaching completed and patient verbalized understanding. 10:57:30 Family in waiting room. 10:57:31 Patient NPO since Midnight. 10:57:33 Is the patient allergic to Iodine/contrast media? No. 10:57:34 Was the patient premedicated? No 10:57:35 Is patient on blood thinner?Yes 10:57:39 ACC The patient was administered the following blood thiners within the last 24 hours: ACCPlavix 10:57:44 Patient diabetic? Yes. 10:57:45 If diabetic: On Metformin? No 10:57:54 Previous problem with sedation/anesthesia? No ? 10:57:59 Snore? Yes 10:58:00 Sleep apnea? Yes 10:58:11 Deviated septum? No 10:58:11 Opens mouth fully? Yes 10:58:12 Sticks out tongue? Yes 10:58:19 Airway obstruction? Yes copd asthma 10:58:22 Dentures? No ? 10:58:26 Pre procedure: right dorsailis pedis pulse 2+ Normal; easily identifiable; not easily obliterated 10:58:29 Pre procedure: left dorsailis pedis pulse 2+ Normal; easily identifiable; not easily obliterated 10:58:33 Patient pain scale 0/10 ?. 10:59:07 IV patent on arrival in left forearm with 0.9% NaCl at KVO. 10:59:10 Lab results completed and on chart. 10:59:55 Bilateral groins area was prepped with chlora-prep and draped in sterile fashion 10:59:56 Alarms reviewed by R. N. 10:59:57 Sharps counted by scrub and verified by R.N. 10:59:59 Physician arrived 10:59:59 --------ALL STOP TIME OUT------ 11:00:00 Final Timeout: patient, procedure, and site verified with staff and physician. All members of the team are in agreement. 11:00:02 Bilateral groins site verified by team. 11:00:06 Fire Safety Assessment: A--An alcohol-based skin anteseptic being used preoperatively., C--Open oxygen or nitrous oxide is being used., D--An ESU, laser, or fiber-optic light is being used. 11:00:09 Physical assessment completed. ASA score P 2 - A patient with mild systemic disease as per Dilan Pisano MD. 11:00:12 Sedation plan: IV Moderate Sedation Medication:Versed, Fentanyl 11:00:19 Use device set Femoral Dx 11:00:20 ACIST Syringe (82553) opened to sterile field. 11:00:20 Bag Decanter (2002S) opened to sterile field. 11:00:21 Medline Cath Pack ([id number]) opened to sterile field. 11:00:21 DIAGNOSTIC WIRE .035 260cm J wire (385898) opened to sterile field. 11:00:28 ACIST Hand Control (14775) opened to sterile field. 11:00:29 ACIST Manifold (59160) opened to sterile field. 11:00:31 Tegaderm 4 x 4 (1626W) opened to sterile field. 11:00:32 SHEATH 5FR Ewing (BQS152) opened to sterile field. 11:02:06 Versed 2 mg I.V. was administered by Thelma Fuentes RN; for sedation; 11::12 Fentanyl 50 mcg I.V. was administered by Thelma Fuentes RN; for sedation; 11:04:27 Zero performed for pressure channel P1 11::41 Zero performed for pressure channel P1 11::06 Zero performed for pressure channel P1 11:05:15 Zero performed for pressure channel P1 11::29 Zero performed for pressure channel P1 11::44 Zero performed for pressure channel P1 11::01 Zero performed for pressure channel P1 11:07:31 Versed 2 mg I.V. was administered by Thelma Fuentes RN; for sedation; 11:07:35 Fentanyl 50 mcg I.V. was administered by Thelma Fuentes RN; for sedation; 11:12:08 Procedure started. 11:12:16 Local anesthetic to left femerol artery with Lidocaine 2% by Dilan Pisano MD.INITIAL ACCESS ONLY 11:13:09 A 5 Fr sheath was inserted into the Left Femoral artery 11:13:20 A DIAGNOSTIC UF 5Fr catheter ([id number]) was advanced over the wire and used for Multi-vessel Angiography. 11:13:55 Abdominal angiogram w/ runoff was performed. 11:14:05 Injector settings: Ml/sec: 10, Volume: 20, 11:14:07 Catheter removed. 11:14:34 EXOSEAL 5Fr (EX500) opened to sterile field. 11:14:42 Sheath removed intact; hemostasis achieved with Exoseal to the Left Femoral artery. 11:14:44 Procedure ended.(Physican Out) 11:14:51 Fluoroscopy time 00.40 minutes. 11:15:01 Flurop Dose total: 69 11:15:01 Fluoroscopy dose: 69 mGy 11:15:12 Contrast amount:Isovue 300 41ml. 11:15:16 Sharps counted by scrub and verified by R.N. 11:15:17 Insertion/operative site no bleeding no hematoma. 11:15:33 Post left femerol artery:stable 11:15:34 Post Procedure Pulses reassessed and unchanged 11:15:37 Post procedure rhythm: unchanged. 11:15:40 Estimated blood loss: 5 ml 11:15:41 Post procedure instruction explained to patient.Patient verbalizes understanding. 11:15:42 Patient needs reinforcement of post procedure teaching. 11:15:57 Procedure and supply charges have been captured, reviewed, submitted and are correct. 11:16:04 Procedure Complication : No complications 11:16:06 Vital chart was stopped 11:16:06 See physician's report for complete and final results. 11:16:12 Report given to Pre/Post Procedure Room. 11:16:15 Patient transfered to Pre/Post Procedure Room with Stretcher. 11:16:17 Procedure ended. 11:16:17 Full Disclosure recording stopped 11:16:20 End room use (Document Last) Device Usage Item Name Manufacture Quantity Catalog Hospital Part Current Minimal L ot# / Number Charge Number Stock Stock Serial# Code ACIST Acist 1 [id number] 263043 103807 364256 20 Syringe GoEuro (95669) NXTM Inc Bag Microtek 1 413195 16867 700659 5 Dec[employer]Fashion for [employer] Inc. () Medline Medline 1 [id number] 729492 80345 347402 5 Cath Pack ([id number]) DIAGNOSTIC St Zana 1 422088 492597 964100 387973 30 WIRE .035 260cm J wire (452484) ACIST Hand Acist 1 44095 082521 301230 581899 5 Control Medical (43977) Systems Inc ACIST Acist 1 91021 499400 219242 057990 5 Manifold Medical (39719) Systems Inc Tegaderm 4 3M 1 1626W 266490 058980 947399 5 x 4 (1626W) SHEATH 5FR Terumo 1 CMM551 852290 337083 124522 5 Ewing (WGC490) DIAGNOSTIC Cardinal 1 [id number] 781276 902873 784251 10 UF 5Fr Health catheter (136790R9) EXOSEAL 5Fr Cardinal 1 EX500 248086 115024 964093 10 (EX500) Health Signature Audit Gunter Stage Time Signature Unsigned Intra-Procedure 05/03/2018 Dianne Walker 11:17:49 AM RT(R) Signatures Monitor : Dianne Walker RT Signature : Date : Time : [place] [id number] [place] [address]
[2018-05-03] MEDS ORDERED: GABAPENTIN100 MG PO (08:08)
[2018-05-03] MEDS ORDERED: HYDROCODON-ACE1 EAC7 PO (08:08)
[2018-05-03] MEDS ORDERED: LIORESAL 10 MG10 MG PO (08:09)
[2018-05-03 08:19] VITALS: BP 141/85; Ht 154.9 cm; Wt 69.1 kg
[2018-05-03] MEDS ORDERED: HUMIRA (08:25)
[2018-05-03 08:28] LABS: BASOPHILS 0.4 % (0-2); EOSINOPHILS 2.4 % (0-7); HEMATOCRIT 39.7 % (36.0-48.0); HEMOGLOBIN 13.8 g/dL (12-16); IMMATURE GRANULOCYTES 0.7 % (0-5); LYMPHOCYTES 27.6 % (15-50); MCH 30.2 pg (26.0-34.0); MCHC 34.8 g/dL (31.0-37.0); MCV 86.9 fL (80.0-100.0); MEAN PLATELET VOLUME 9.7 fL (7.4-10.4); MONOCYTES 7.2 % (2-11); NEUTROPHILS 61.7 % (40-80); PLATELET COUNT 162 10x3/uL (130-400); RBC 4.57 10x6/uL (4.00-5.40); RDW 13.9 % (11.5-14.5); WBC 7.1 10x3/uL (4.8-10.8)
[2018-05-03 08:41] LABS: CALC OSMOLALITY 286 mosm/kg (275-300); CALCIUM 8.9 mg/dL (8.5-10.1); CARBON DIOXIDE 26.4 mmol/L (21.0-32.0); CHLORIDE - SERUM 101 mmol/L (98-107); CREATININE - SERUM 0.6 mg/dL (0.6-1.3); GLUCOSE 280 mg/dL (74-106); POTASSIUM - SERUM 3.8 mmol/L (3.5-5.1); SODIUM 139 mmol/L (136-145); UREA NITROGEN 9 mg/dL (7-18); eGFR NON AFRICAN AMERICAN > 90 mL/min (90-120)
--- NOTE | 2018-05-03 11:40 | NUR ---
2L NC, NO RESP DISTRESS. LEFT GROIN 5F EXOSEAL CDI, NO BLEEDING OR HEMATOMA NOTED. NO C/O PAIN OR NAUSEA. VSS. CALL LIGHT WITHIN REACH.
--- NOTE | 2018-05-03 12:10 | NUR ---
RESTING QUIETLY WITH EYES CLOSED. LEFT GROIN 5F EXOSEAL CDI, NO BLEEDING OR HEMATOMA NOTED. DENIES ANY NEEDS. VSS. CALL LIGHT WITHIN REACH.
--- NOTE | 2018-05-03 12:30 | NUR ---
HOB ELEVATED 30 DEGREES. LEFT GROIN 5F EXOSEAL CDI, NO BLEEDING OR HEMATOMA NOTED. SIPPING ON DRINK AND EATING SANDWICH WITH NO C/O OF NAUSEA. VSS. WILL CONTINUE TO MONITOR.
--- NOTE | 2018-05-03 13:00 | NUR ---
LEFT PIV D/C'D WITH CATHETER INTACT, BAND AID TO SITE. LEFT GROIN 5F EXOSEAL CDI, NO BLEEDING OR HEMATOMA NOTED. UP TO BEDSIDE TO GET DRESSED.
--- NOTE | 2018-05-03 13:10 | NUR ---
DSICHARGE INSTRUCTIONS GIVEN, VERBALIZED UNDERSTANDING.
--- NOTE | 2018-05-03 13:20 | NUR ---
TAKEN OUT VIA WHEELCHAIR BY CATH PLANTING MATERIAL REMOVER. LEFT FACILITY WITH FAMILY AND ALL PERSONAL BELONGINGS.
--- NOTE | 2018-05-06 11:46 | OP ---
PATIENT NAME: DIVYA PITT MEDICAL RECORD: [id number] :[birth year] LOCATION:D.CAT ADMISSION DATE: SURGEON: AZEEM MARTINEZ MD DATE OF OPERATION: 05/03/2018 PROCEDURES: 1. Aortofemoral runoff. 2. Abdominal aortography. INDICATION: Leg pain compatible with claudication. PROCEDURE PERFORMED: After informed consent was obtained and after a detailed description of risks, benefits as well as alternative therapies, the patient elected to proceed with angiogram and aortofemoral runoff. The left femoral area was prepped and draped in normal sterile fashion. Left femoral artery was cannulated via modified Seldinger technique with placement of 6-Sinhala sheath. All catheters exchanged through this sheath. FINDINGS: Abdominal aortography was performed. The catheter was pulled down for aortofemoral runoff. Abdominal aortography reveals no significant abdominal aortic disease, no dissection or aneurysm formation. RIGHT LEG: A. Iliac: The common internal and external iliacs are smooth-walled with no evidence of peripheral vascular disease. B. Femoral system: The common superficial and deep femoral have smooth-walled vessels with no evidence of peripheral vascular disease. C. Popliteal and infrapopliteal vessels are widely patent with good 3-vessel runoff to the foot. LEFT LEG: A. Iliac: The common internal and external iliacs are smooth-walled with no evidence of peripheral vascular disease. B. Femoral system: The common superficial and deep femoral have smooth-walled vessels with no evidence of peripheral vascular disease. C. Popliteal and infrapopliteal vessels are widely patent with good 3-vessel runoff to the foot. OVERALL IMPRESSION: No significant peripheral vascular disease is present. Leg pain is nonarteriovascular in etiology. TRANSINT:[id number] Voice Confirmation ID: [id number] DOCUMENT ID: [id number] AZEEM MARTINEZ MD at 1146 CC: [id number] DICTATION DATE: 05/03/18 1118 DIRECTOR DRUG SAFETY: 05/03/18 1126 DEP CLI 05/03/18 [place] [id number]
== END 2018-05-03 13:20 | disposition home or self-care (01) ==
LOC: D.CATH 07:44
PROVIDERS: Internal Medicine Interventional Cardiology
DX: M79.605 Pain in left leg (principal); M79.604 Pain in right leg; Z01.812 Encounter for preprocedural laboratory examination

== ENCOUNTER 2018-05-08 16:01 | Inpatient (IN) | payer MEDICARE, MEDICAID ==
[~2018-05-08] VITALS: Ht 154.9 cm; Wt 68.0 kg
[~2018-05-08 16:01] MED LIST changes: +GABAPENTIN100 MG PO
[2018-05-08 17:28] VITALS: BP 116/71; BMI 28.4
[2018-05-08 18:05] LABS: BASOPHILS 0.2 % (0-2); EOSINOPHILS 0.2 % (0-7); HEMATOCRIT 38.8 % (36.0-48.0); HEMOGLOBIN 13.1 g/dL (12-16); IMMATURE GRANULOCYTES 0.6 % (0-5); MCH 30.1 pg (26.0-34.0); MCHC 33.8 g/dL (31.0-37.0); MCV 89.2 fL (80.0-100.0); MEAN PLATELET VOLUME 9.5 fL (7.4-10.4); MONOCYTES 14.7 % (2-11); NEUTROPHILS 74.3 % (40-80); RBC 4.35 10x6/uL (4.00-5.40); RDW 14.1 % (11.5-14.5); WBC 5.1 10x3/uL (4.8-10.8)
[2018-05-08 18:21] LABS: PLATELET COUNT 122 10x3/uL (130-400)
[2018-05-08 19:03] LABS: ALBUMIN 3.3 g/dL (3.4-5.0); ALKALINE PHOSPHATASE 79 U/L (46-116); ALT (SGPT) 105 U/L (10-68); BILIRUBIN - TOTAL 0.39 mg/dL (0.2-1.3); CALC OSMOLALITY 279 mosm/kg (275-300); CALCIUM 8.3 mg/dL (8.5-10.1); CARBON DIOXIDE 24.6 mmol/L (21.0-32.0); CHLORIDE - SERUM 101 mmol/L (98-107); CREATININE - SERUM 0.6 mg/dL (0.6-1.3); POTASSIUM - SERUM 3.9 mmol/L (3.5-5.1); PROTEIN - SERUM 6.6 g/dL (6.4-8.2); SODIUM 138 mmol/L (136-145); UREA NITROGEN 8 mg/dL (7-18); eGFR NON AFRICAN AMERICAN > 90 mL/min (90-120)
[2018-05-08 19:08] LABS: GLUCOSE 207 mg/dL (74-106)
[2018-05-08 20:00] VITALS: BP 102/54; BP 135/84
[2018-05-08 20:04] LABS: APPEARANCE CLEAR (CLEAR); BILIRUBIN NEGATIVE (NEGATIVE); COLOR YELLOW (YELLOW); GLUCOSE NEGATIVE (NEGATIVE); KETONE NEGATIVE (NEGATIVE); NITRITE NEGATIVE (NEGATIVE); PROTEIN NEGATIVE (NEGATIVE); SPECIFIC GRAVITY 1.015 (1.005-1.020); UROBILINOGEN NORMAL (NORMAL)
[2018-05-09] VITALS: BP 115/62
[2018-05-09 04:00] VITALS: BP 106/57
[2018-05-09 07:17] LABS: ALBUMIN 3.1 g/dL (3.4-5.0); ALKALINE PHOSPHATASE 70 U/L (46-116); ALT (SGPT) 107 U/L (10-68); BILIRUBIN - TOTAL 0.43 mg/dL (0.2-1.3); CALC OSMOLALITY 279 mosm/kg (275-300); CALCIUM 7.6 mg/dL (8.5-10.1); CARBON DIOXIDE 25.9 mmol/L (21.0-32.0); CHLORIDE - SERUM 101 mmol/L (98-107); CREATININE - SERUM 0.6 mg/dL (0.6-1.3); GLUCOSE 179 mg/dL (74-106); POTASSIUM - SERUM 3.6 mmol/L (3.5-5.1); PROTEIN - SERUM 6.7 g/dL (6.4-8.2); SODIUM 139 mmol/L (136-145); UREA NITROGEN 7 mg/dL (7-18); eGFR NON AFRICAN AMERICAN > 90 mL/min (90-120)
[2018-05-09 07:25] LABS: BASOPHILS 0.2 % (0-2); EOSINOPHILS 0.2 % (0-7); HEMATOCRIT 37.4 % (36.0-48.0); HEMOGLOBIN 12.5 g/dL (12-16); IMMATURE GRANULOCYTES 0.4 % (0-5); LYMPHOCYTES 24.3 % (15-50); MCHC 33.4 g/dL (31.0-37.0); MCV 89.7 fL (80.0-100.0); MONOCYTES 8.3 % (2-11); NEUTROPHILS 66.6 % (40-80); PLATELET COUNT 135 10x3/uL (130-400); RBC 4.17 10x6/uL (4.00-5.40); RDW 14.4 % (11.5-14.5); WBC 5.2 10x3/uL (4.8-10.8)
[2018-05-09 07:53] VITALS: BP 132/71
[2018-05-09 11:04] VITALS: Ht 154.9 cm; Wt 68.0 kg
[2018-05-09 11:32] VITALS: BP 97/56
[2018-05-09 15:20] LABS: APPEARANCE CLEAR (CLEAR); BACTERIA FEW /hpf (NONE SEEN); BILIRUBIN NEGATIVE (NEGATIVE); COLOR YELLOW (YELLOW); EPITHELIAL CELLS 0-5 /hpf (0-5); GLUCOSE NEGATIVE (NEGATIVE); KETONE NEGATIVE (NEGATIVE); MUCUS <1+ /lpf (NONE SEEN); NITRITE NEGATIVE (NEGATIVE); PROTEIN TRACE mg/dL (NEGATIVE); RED CELLS - URINE 0-5 /hpf (0-5); SPECIFIC GRAVITY 1.015 (1.005-1.020); UROBILINOGEN NORMAL (NORMAL); WHITE CELLS - URINE 0-5 /hpf (0-5)
[2018-05-09 16:04] VITALS: BP 96/70
[2018-05-09 20:29] VITALS: BP 131/81
[2018-05-10 00:52] VITALS: BP 108/61
[2018-05-10 04:00] VITALS: BP 121/70
[2018-05-10 08:50] VITALS: BP 110/68
[2018-05-10 12:21] LABS: BASOPHILS 0.2 % (0-2); EOSINOPHILS 0.5 % (0-7); HEMATOCRIT 36.5 % (36.0-48.0); IMMATURE GRANULOCYTES 0.2 % (0-5); LYMPHOCYTES 24.1 % (15-50); MCH 29.6 pg (26.0-34.0); MCHC 32.9 g/dL (31.0-37.0); MCV 90.1 fL (80.0-100.0); MEAN PLATELET VOLUME 9.8 fL (7.4-10.4); MONOCYTES 8.2 % (2-11); NEUTROPHILS 66.8 % (40-80); PLATELET COUNT 116 10x3/uL (130-400); RBC 4.05 10x6/uL (4.00-5.40); RDW 14.5 % (11.5-14.5); WBC 6.2 10x3/uL (4.8-10.8)
[2018-05-10 12:39] LABS: ALBUMIN 2.7 g/dL (3.4-5.0); ALKALINE PHOSPHATASE 67 U/L (46-116); ALT (SGPT) 73 U/L (10-68); BILIRUBIN - TOTAL 0.49 mg/dL (0.2-1.3); CALC OSMOLALITY 274 mosm/kg (275-300); CALCIUM 7.5 mg/dL (8.5-10.1); CARBON DIOXIDE 28.2 mmol/L (21.0-32.0); CHLORIDE - SERUM 102 mmol/L (98-107); CREATININE - SERUM 0.5 mg/dL (0.6-1.3); GLUCOSE 175 mg/dL (74-106); POTASSIUM - SERUM 3.5 mmol/L (3.5-5.1); PROTEIN - SERUM 6.1 g/dL (6.4-8.2); SODIUM 137 mmol/L (136-145); UREA NITROGEN 5 mg/dL (7-18); eGFR NON AFRICAN AMERICAN > 90 mL/min (90-120)
--- NOTE | 2018-05-10 15:08 | MORECARE ---
CASE MANAGEMENT DISCHARGE SUMMARY PATIENT: DIVYA PITT SOPHY UNIT: [id number] ADM DATE: 05/08/18 AGE: 53 : 61 SEX: F ROOM/BED: D.1207 AUTHOR: SAYRA REYNAGA PHYSICIAN: REFERRING PHYSICIAN: AMELIA GARCIA MD DATE OF SERVICE: 05/10/18 Discharge Plan Patient Name: DIVYA PITT Facility: [facility]:[place] : 1965 Planned Disposition: Home Anticipated Discharge Date: Discharge Date: Expected LOS: Initial Reviewer: [email or web address] Initial Review Date: 05/08/2018 Generated: 05/10/18 4:08 pm Comments DCP- Discharge Planning Updated by [email or web address]: Sarah Dickerson on 05/10/18 2:[address] Patient Name: DIVYA PITT Admission Status: Urgent Accout number: [id number] Admission Date: 05-08-2018 : 1965 Admission Diagnosis:SHORTNESS OF BREATH Attending: AMELIA GARCIA Current LOS: 2 Anticipated DC Date: Planned Disposition: Home Primary Insurance: [facility] MEDICARE SOLUTIONS Discharge Planning Comments: CM TALKED WITH PATIENT VIA TELEPHONE ABOUT DC PLANNINNG/NEEDS. STATES PLANS TO DC TO HOME WITH . DENIES ANY NEEDS. CM WILL FOLLOW AND ASSIST NEEDED WITH DC PLANNING/NEEDS. Novelty Candy Maker: Sarah Dickerson DCPIA - Discharge Planning Initial Assessment Updated by [id number]: Sarah Dickerson on 05/10/18 3:01 pm * Is the patient Alert and Oriented? Yes * PCP FARO * [facility] * Preadmission Environment Home with Family * ADLs Independent * Additional services required to return to the preadmission environment? No * Can the patient safely return to the preadmission environment? Yes * Has this patient been hospitalized within the prior 30 days at any hospital? No Patient Name: DIVYA PITT Page 12371 at 1508 All edits/amendments must be made on the electronic document DICTATION DATE: 05/10/18 1508 JOINERY FACTORY WORKER: SULMA 05/10/18 1508 RPT#: [id number] DC DATE: STATUS: ADM IN [facility] [address] [facility] [place] [address] END OF REPORT
[2018-05-10 20:17] VITALS: BP 114/60
[2018-05-10 22:33] VITALS: BP 109/50
[2018-05-11 00:42] VITALS: BP 101/49
[2018-05-11 05:10] VITALS: BP 136/78
[2018-05-11 15:56] LABS: BASOPHILS 0.1 % (0-2); EOSINOPHILS 0.1 % (0-7); HEMOGLOBIN 12.4 g/dL (12-16); IMMATURE GRANULOCYTES 0.1 % (0-5); LYMPHOCYTES 22.4 % (15-50); MCH 29.8 pg (26.0-34.0); MCHC 33.5 g/dL (31.0-37.0); MCV 88.9 fL (80.0-100.0); MEAN PLATELET VOLUME 9.8 fL (7.4-10.4); MONOCYTES 11.4 % (2-11); NEUTROPHILS 65.9 % (40-80); PLATELET COUNT 118 10x3/uL (130-400); RBC 4.16 10x6/uL (4.00-5.40); RDW 14.2 % (11.5-14.5); WBC 6.9 10x3/uL (4.8-10.8)
[2018-05-11 16:13] LABS: CALC OSMOLALITY 275 mosm/kg (275-300); CARBON DIOXIDE 26.1 mmol/L (21.0-32.0); CHLORIDE - SERUM 102 mmol/L (98-107); CREATININE - SERUM 0.4 mg/dL (0.6-1.3); GLUCOSE 184 mg/dL (74-106); POTASSIUM - SERUM 3.7 mmol/L (3.5-5.1); SODIUM 137 mmol/L (136-145); UREA NITROGEN 4 mg/dL (7-18); eGFR NON AFRICAN AMERICAN > 90 mL/min (90-120)
[2018-05-11 18:55] VITALS: BP 101/55
[2018-05-11 20:00] VITALS: BP 108/69
[2018-05-12] VITALS: BP 118/68
[2018-05-12 04:00] VITALS: BP 123/67
[2018-05-12 05:47] LABS: BASOPHILS 0.3 % (0-2); EOSINOPHILS 0.7 % (0-7); HEMATOCRIT 36.1 % (36.0-48.0); HEMOGLOBIN 12.1 g/dL (12-16); IMMATURE GRANULOCYTES 0.3 % (0-5); LYMPHOCYTES 25.2 % (15-50); MCH 30.1 pg (26.0-34.0); MCHC 33.5 g/dL (31.0-37.0); MCV 89.8 fL (80.0-100.0); MEAN PLATELET VOLUME 9.8 fL (7.4-10.4); MONOCYTES 9.9 % (2-11); NEUTROPHILS 63.6 % (40-80); PLATELET COUNT 129 10x3/uL (130-400); RBC 4.02 10x6/uL (4.00-5.40); RDW 14.1 % (11.5-14.5)
[2018-05-12 06:12] LABS: CALCIUM 8.1 mg/dL (8.5-10.1); CARBON DIOXIDE 26.6 mmol/L (21.0-32.0); CHLORIDE - SERUM 104 mmol/L (98-107); CREATININE - SERUM 0.5 mg/dL (0.6-1.3); MAGNESIUM - SERUM 1.8 mg/dL (1.8-2.4); POTASSIUM - SERUM 3.6 mmol/L (3.5-5.1); SODIUM 139 mmol/L (136-145); eGFR NON AFRICAN AMERICAN > 90 mL/min (90-120)
[2018-05-12 06:16] LABS: CALC OSMOLALITY 283 mosm/kg (275-300); GLUCOSE 235 mg/dL (74-106); UREA NITROGEN 6 mg/dL (7-18)
[2018-05-12 09:10] VITALS: BP 117/63
[2018-05-12 19:35] VITALS: BP 99/52
[2018-05-12 20:23] VITALS: BP 119/70
[2018-05-13] VITALS: BP 112/59
[2018-05-13 05:51] VITALS: BP 166/73
[2018-05-13 06:26] LABS: CALC OSMOLALITY 286 mosm/kg (275-300); CALCIUM 8.5 mg/dL (8.5-10.1); CARBON DIOXIDE 28.4 mmol/L (21.0-32.0); CHLORIDE - SERUM 105 mmol/L (98-107); CREATININE - SERUM 0.5 mg/dL (0.6-1.3); GLUCOSE 186 mg/dL (74-106); MAGNESIUM - SERUM 1.9 mg/dL (1.8-2.4); POTASSIUM - SERUM 3.5 mmol/L (3.5-5.1); SODIUM 143 mmol/L (136-145); UREA NITROGEN 5 mg/dL (7-18); eGFR NON AFRICAN AMERICAN > 90 mL/min (90-120)
[2018-05-13 06:27] LABS: BASOPHILS 0.9 % (0-2); EOSINOPHILS 1.4 % (0-7); HEMATOCRIT 35.2 % (36.0-48.0); HEMOGLOBIN 11.7 g/dL (12-16); IMMATURE GRANULOCYTES 0.1 % (0-5); LYMPHOCYTES 32.4 % (15-50); MCH 29.8 pg (26.0-34.0); MCHC 33.2 g/dL (31.0-37.0); MCV 89.8 fL (80.0-100.0); MEAN PLATELET VOLUME 9.7 fL (7.4-10.4); MONOCYTES 9.3 % (2-11); NEUTROPHILS 55.9 % (40-80); PLATELET COUNT 143 10x3/uL (130-400); RBC 3.92 10x6/uL (4.00-5.40); RDW 14.4 % (11.5-14.5)
[2018-05-13 08:44] VITALS: BP 134/81
[2018-05-13 13:00] VITALS: BP 105/67
[2018-05-13 15:57] VITALS: BP 120/59
--- NOTE | 2018-05-13 16:36 | MORECARE ---
CASE MANAGEMENT DISCHARGE SUMMARY PATIENT: DIVYA PITT SOPHY UNIT: [id number] ADM DATE: 05/08/18 AGE: 53 : 61 SEX: F ROOM/BED: D.1207 AUTHOR: SAYRA REYNAGA PHYSICIAN: REFERRING PHYSICIAN: AMELIA GARICA MD DATE OF SERVICE: 05/13/18 Discharge Plan Patient Name: DIVYA PITT Facility: [facility]:[place] : 1965 Planned Disposition: Home Anticipated Discharge Date: Discharge Date: Expected LOS: Initial Reviewer: [email or web address] Initial Review Date: 05/08/2018 Generated: 05/13/18 5:36 pm Comments DCP- Discharge Planning Updated by [email or web address]: Sarah Dickerson on 05/10/18 2:[address] Patient Name: DIVYA PITT Admission Status: Urgent Accout number: [id number] Admission Date: 05-08-2018 : 1965 Admission Diagnosis:SHORTNESS OF BREATH Attending: AMELIA GARCIA Current LOS: 2 Anticipated DC Date: Planned Disposition: Home Primary Insurance: [facility] MEDICARE SOLUTIONS Discharge Planning Comments: CM TALKED WITH PATIENT VIA TELEPHONE ABOUT DC PLANNINNG/NEEDS. STATES PLANS TO DC TO HOME WITH . DENIES ANY NEEDS. CM WILL FOLLOW AND ASSIST NEEDED WITH DC PLANNING/NEEDS. Materials Scientist: Sarah Dickerson DCPIA - Discharge Planning Initial Assessment Updated by [email or web address]: Sarah Dickerson on 05/10/18 3:01 pm * Is the patient Alert and Oriented? Yes * PCP FARO * [facility] * Preadmission Environment Home with Family * ADLs Independent * Additional services required to return to the preadmission environment? No * Can the patient safely return to the preadmission environment? Yes * Has this patient been hospitalized within the prior 30 days at any hospital? No Last DP export: 05/10/18 2:08 p Patient Name: DIVYA PITT Page 28791 at 6436 All edits/amendments must be made on the electronic document DICTATION DATE: 05/13/18 1632 ICE CREAM SCOOPER: SULMA 05/13/18 1635 RPT#: [id number] DC DATE: STATUS: ADM IN [facility] [address] [place] [address] END OF REPORT
--- NOTE | 2018-05-13 17:34 | MORECARE ---
CASE MANAGEMENT DISCHARGE SUMMARY PATIENT: DIVYA PITT UNIT: [id number] ADM DATE: 05/08/18 AGE: 53 : 61 SEX: F ROOM/BED: D.1207 AUTHOR: RONNELL,DOC PHYSICIAN: REFERRING PHYSICIAN: AMELIA GARCIA MD DATE OF SERVICE: 05/13/18 Discharge Plan Patient Name: DIVYA PITT Facility: [facility]:[place] : 1965 Planned Disposition: Home Anticipated Discharge Date: Discharge Date: Expected LOS: Initial Reviewer: [email or web address] Initial Review Date: 05/08/2018 Generated: 05/13/18 6:34 pm Comments DCP- Discharge Planning Updated by [email or web address]: Sarah Dickerson on 05/13/18 4:[address] Patient Name: DIVYA PITT Admission Status: Urgent Accout number: [id number] Admission Date: 05-08-2018 : 1965 Admission Diagnosis:SHORTNESS OF BREATH Attending: AMELIA GARCIA Current LOS: 5 Anticipated DC Date: Planned Disposition: Home Primary Insurance: [facility] MEDICARE SOLUTIONS Discharge Planning Comments: RT DID WALK TEST ON PATIENT AND SHE DOES NOT QUALIFY FOR 02. THE LOWEST HER 02 SATS GOT WERE 90%. WALK TEST RESULTS PLACED ON CHART. CM TO FOLLOW AND ASSIST NEEDED WITH DC PLANNING/NEEDS. Supervisor Meter Repair Shop: Sarah Dickerson DCP- Discharge Planning Updated by [email or web address]: Sarah Dickerson on 05/10/18 2:[address] Patient Name: DIVYA PITT Admission Status: Urgent Accout number: [id number] Admission Date: 05-08-2018 : 1965 Admission Diagnosis:SHORTNESS OF BREATH Attending: AMELIA GARCIA Current LOS: 2 Anticipated DC Date: Planned Disposition: Home Primary Insurance: [facility] MEDICARE SOLUTIONS Discharge Planning Comments: CM TALKED WITH PATIENT VIA TELEPHONE ABOUT DC PLANNINNG/NEEDS. STATES PLANS TO DC TO HOME WITH . DENIES ANY NEEDS. CM WILL FOLLOW AND ASSIST NEEDED WITH DC PLANNING/NEEDS. Supervisor Meter Repair Shop: Sarah Dickerson DCPIA - Discharge Planning Initial Assessment Updated by [email or web address]: Sarah Dickerson on 05/10/18 3:01 pm * Is the patient Alert and Oriented? Yes * PCP FARO * [facility] * Preadmission Environment Home with Family * ADLs Independent * Additional services required to return to the preadmission environment? No * Can the patient safely return to the preadmission environment? Yes * Has this patient been hospitalized within the prior 30 days at any hospital? No Last DP export: 05/13/18 3:36 p Patient Name: DIVYA PITT Page 10073 at 1734 All edits/amendments must be made on the electronic document DICTATION DATE: 05/13/181732 WAREHOUSE RECEIVING SUPERVISOR: SULMA 05/13/181732 RPT#: [id number] MS DATE: STATUS: ADM IN [facility] [address] [place] [address] END OF REPORT
[2018-05-13 20:00] VITALS: BP 121/65
[2018-05-14] VITALS: BP 121/73
[2018-05-14 04:30] VITALS: BP 136/77
[2018-05-14 07:29] LABS: CALC OSMOLALITY 286 mosm/kg (275-300); CALCIUM 8.1 mg/dL (8.5-10.1); CHLORIDE - SERUM 104 mmol/L (98-107); CREATININE - SERUM 0.4 mg/dL (0.6-1.3); GLUCOSE 178 mg/dL (74-106); MAGNESIUM - SERUM 1.6 mg/dL (1.8-2.4); POTASSIUM - SERUM 3.3 mmol/L (3.5-5.1); SODIUM 143 mmol/L (136-145); UREA NITROGEN 6 mg/dL (7-18); eGFR NON AFRICAN AMERICAN > 90 mL/min (90-120)
[2018-05-14 07:33] LABS: BASOPHILS 0.9 % (0-2); HEMATOCRIT 33.8 % (36.0-48.0); HEMOGLOBIN 11.2 g/dL (12-16); IMMATURE GRANULOCYTES 0.4 % (0-5); LYMPHOCYTES 32.3 % (15-50); MCH 29.7 pg (26.0-34.0); MCHC 33.1 g/dL (31.0-37.0); MCV 89.7 fL (80.0-100.0); MEAN PLATELET VOLUME 9.9 fL (7.4-10.4); MONOCYTES 8.5 % (2-11); NEUTROPHILS 55.9 % (40-80); PLATELET COUNT 171 10x3/uL (130-400); RBC 3.77 10x6/uL (4.00-5.40); RDW 14.2 % (11.5-14.5)
[2018-05-14 09:01] VITALS: BP 132/79
[2018-05-14 12:08] VITALS: BP 119/92
[2018-05-14 15:26] VITALS: BP 116/71
[2018-05-14 20:31] VITALS: BP 117/67
[2018-05-15] VITALS: BP 110/52
[2018-05-15 05:42] VITALS: BP 125/70
[2018-05-15 08:24] LABS: CALC OSMOLALITY 290 mosm/kg (275-300); CALCIUM 8.8 mg/dL (8.5-10.1); CARBON DIOXIDE 31.7 mmol/L (21.0-32.0); CHLORIDE - SERUM 106 mmol/L (98-107); CREATININE - SERUM 0.4 mg/dL (0.6-1.3); GLUCOSE 128 mg/dL (74-106); MAGNESIUM - SERUM 1.8 mg/dL (1.8-2.4); POTASSIUM - SERUM 3.4 mmol/L (3.5-5.1); SODIUM 146 mmol/L (136-145); UREA NITROGEN 6 mg/dL (7-18); eGFR NON AFRICAN AMERICAN > 90 mL/min (90-120)
[2018-05-15 08:40] LABS: BASOPHILS 0.4 % (0-2); EOSINOPHILS 3.4 % (0-7); HEMATOCRIT 35.1 % (36.0-48.0); HEMOGLOBIN 11.4 g/dL (12-16); IMMATURE GRANULOCYTES 0.6 % (0-5); LYMPHOCYTES 36.2 % (15-50); MCH 29.3 pg (26.0-34.0); MCHC 32.5 g/dL (31.0-37.0); MCV 90.2 fL (80.0-100.0); MEAN PLATELET VOLUME 10.4 fL (7.4-10.4); MONOCYTES 8.8 % (2-11); NEUTROPHILS 50.6 % (40-80); RBC 3.89 10x6/uL (4.00-5.40); RDW 14.2 % (11.5-14.5); WBC 6.8 10x3/uL (4.8-10.8)
[2018-05-15 08:41] LABS: PLATELET COUNT 212 10x3/uL (130-400)
[2018-05-15 09:21] VITALS: BP 115/45
[2018-05-15 13:59] VITALS: BP 124/54
[2018-05-15 17:03] VITALS: BP 119/71
[2018-05-15 20:00] VITALS: BP 126/67
[2018-05-16 00:30] VITALS: BP 164/90
[2018-05-16 04:30] VITALS: BP 134/68
[2018-05-16 06:43] LABS: BASOPHILS 0.2 % (0-2); EOSINOPHILS 3.2 % (0-7); HEMATOCRIT 34.9 % (36.0-48.0); HEMOGLOBIN 11.4 g/dL (12-16); IMMATURE GRANULOCYTES 0.7 % (0-5); LYMPHOCYTES 33.2 % (15-50); MCH 29.3 pg (26.0-34.0); MCHC 32.7 g/dL (31.0-37.0); MCV 89.7 fL (80.0-100.0); MEAN PLATELET VOLUME 9.8 fL (7.4-10.4); MONOCYTES 7.8 % (2-11); NEUTROPHILS 54.9 % (40-80); PLATELET COUNT 234 10x3/uL (130-400); RBC 3.89 10x6/uL (4.00-5.40); RDW 13.9 % (11.5-14.5)
[2018-05-16 06:51] LABS: CALC OSMOLALITY 286 mosm/kg (275-300); CALCIUM 8.5 mg/dL (8.5-10.1); CARBON DIOXIDE 32.1 mmol/L (21.0-32.0); CHLORIDE - SERUM 106 mmol/L (98-107); CREATININE - SERUM 0.5 mg/dL (0.6-1.3); GLUCOSE 140 mg/dL (74-106); MAGNESIUM - SERUM 1.6 mg/dL (1.8-2.4); POTASSIUM - SERUM 3.6 mmol/L (3.5-5.1); SODIUM 144 mmol/L (136-145); UREA NITROGEN 6 mg/dL (7-18); eGFR NON AFRICAN AMERICAN > 90 mL/min (90-120)
[2018-05-16] MEDS ORDERED: POTASSIUM CHLO10 ME1 PO (07:53)
[2018-05-16 10:11] VITALS: BP 132/80
--- NOTE | 2018-05-16 11:23 | MORECARE ---
CASE MANAGEMENT DISCHARGE SUMMARY PATIENT: DIVAY PITT UNIT: [id number] ADM DATE: 05/08/18 AGE: 53 : 61 SEX: F ROOM/BED: D.1207 AUTHOR: RONNELL,DOC PHYSICIAN: REFERRING PHYSICIAN: AMELIA GARCIA MD DATE OF SERVICE: 05/16/18 Discharge Plan Patient Name: DIVYA PITT Facility: [facility]:[place] : 1965 Planned Disposition: Home Anticipated Discharge Date: Discharge Date: Expected LOS: Initial Reviewer: [email or web address] Initial Review Date: 05/08/2018 Generated: 05/16/18 12:23 pm Comments DCP- Discharge Planning Updated by [email or web address]: Sarah Dickerson on 05/16/18 10:[address] Patient Name: DIVYA PITT Encounter No: [id number] : 1965 Primary Insurance: [facility] MEDICARE SOLUTIONS Anticipated DC Date: Planned Disposition: Home External Planned Provider: : DCP follow-up note: Patient and family in agreement with discharge plan. No changes to plan. Patient states has nebulizer at home. Case management will follow and assist as needed. IM signed. Sarah Dickerson DCP- Discharge Planning Updated by [email or web address]: Sarah Dickerson on 05/13/18 4:[address] Patient Name: DIVYA PITT Admission Status: Urgent Accout number: [id number] Admission Date: 05-08-2018 : 1965 Admission Diagnosis:SHORTNESS OF BREATH Attending: AMELIA GARCIA Current LOS: 5 Anticipated DC Date: Planned Disposition: Home Primary Insurance: [employer] MEDICARE SOLUTIONS Discharge Planning Comments: RT DID WALK TEST ON PATIENT AND SHE DOES NOT QUALIFY FOR 02. THE LOWEST HER 02 SATS GOT WERE 90%. WALK TEST RESULTS PLACED ON CHART. CM TO FOLLOW AND ASSIST NEEDED WITH DC PLANNING/NEEDS. Field Consultant: Sarah Dickerson DCP- Discharge Planning Updated by [email or web address]: Sarah Dickerson on 05/10/18 2:[address] Patient Name: DIVYA PITT Admission Status: Urgent Accout number: [id number] Admission Date: 05-08-2018 : 1965 Admission Diagnosis:SHORTNESS OF BREATH Attending: AMELIA GARCIA Current LOS: 2 Anticipated DC Date: Planned Disposition: Home Primary Insurance: [facility] MEDICARE SOLUTIONS Discharge Planning Comments: CM TALKED WITH PATIENT VIA TELEPHONE ABOUT DC PLANNINNG/NEEDS. STATES PLANS TO DC TO HOME WITH . DENIES ANY NEEDS. CM WILL FOLLOW AND ASSIST NEEDED WITH DC PLANNING/NEEDS. Field Consultant: Sarah Dickerson DCPIA - Discharge Planning Initial Assessment Updated by [email or web address]: Sarah Dickerson on 05/10/18 3:01 pm * Is the patient Alert and Oriented? Yes * PCP FARO * [facility] * Preadmission Environment Home with Family * ADLs Independent * Additional services required to return to the preadmission environment? No * Can the patient safely return to the preadmission environment? Yes * Has this patient been hospitalized within the prior 30 days at any hospital? No Coverage Notice Reviewer: [email or web address] Ernestine Dickerson Notice Issued Date-Time: 05/16/2018 11:08 Notice Type: IM Discharge Notice Notice Delivered To: Patient Relationship to Patient: Self Trouble Shooter Name: Delivery Method: HAND - Hand Delivered Ceci Days: Prior Verbal Notification: Recipient Understood Notice: Yes Recipient Signature: Yes Med Rec Note Co-signed by Attending: Coverage Notice Comment: Last DP export: 05/13/18 4:34 p Patient Name: DIVYA PITT Page 64736 at 1123 All edits/amendments must be made on the electronic document DICTATION DATE: 05/16/18 112 WAGE AND HOUR INVESTIGATOR: SULMA 05/16/18 1123 RPT#: [id number] DC DATE: STATUS: ADM IN [facility] [address] [place] [address] END OF REPORT
[2018-05-16 14:35] VITALS: BP 126/73
--- NOTE | 2018-05-17 16:48 | MORECARE ---
CASE MANAGEMENT DISCHARGE SUMMARY PATIENT: DIVYA PITT UNIT: [id number] ADM DATE: 05/08/18 AGE: 53 : 61 SEX: F ROOM/BED: D.1207 AUTHOR: RONNELL,DOC PHYSICIAN: REFERRING PHYSICIAN: AMELIA GARCIA MD DATE OF SERVICE: 05/17/18 Discharge Plan Patient Name: DIVYA PITT Facility: [facility]:[place] : 1965 Planned Disposition: Home Anticipated Discharge Date: Discharge Date: 05/16/2018 Expected LOS: Initial Reviewer: [email or web address] Initial Review Date: 05/08/2018 Generated: 05/17/18 5:48 pm Comments DCP- Discharge Planning Updated by [email or web address]: Sarah Dickerson on 05/16/18 10:[address] Patient Name: DIVYA PITT Encounter No: [id number] : 1965 Primary Insurance: [facility] MEDICARE SOLUTIONS Anticipated DC Date: Planned Disposition: Home External Planned Provider: : DCP follow-up note: Patient and family in agreement with discharge plan. No changes to plan. Patient states has nebulizer at home. Case management will follow and assist as needed. IM signed. Sarah Dickerson DCP- Discharge Planning Updated by [id number]: Sarah Dickerson on 05/13/18 4:[address] Patient Name: DIVYA PITT Admission Status: Urgent Accout number: [id number] Admission Date: 05-08-2018 : 1965 Admission Diagnosis:SHORTNESS OF BREATH Attending: AMELIA GARCIA Current LOS: 5 Anticipated DC Date: Planned Disposition: Home Primary Insurance: [facility] MEDICARE SOLUTIONS Discharge Planning Comments: RT DID WALK TEST ON PATIENT AND SHE DOES NOT QUALIFY FOR 02. THE LOWEST HER 02 SATS GOT WERE 90%. WALK TEST RESULTS PLACED ON CHART. CM TO FOLLOW AND ASSIST NEEDED WITH DC PLANNING/NEEDS. Airway Controller: Sarah Dickerson DCP- Discharge Planning Updated by [id number]: Sarah Dickerson on 05/10/18 2:[address] Patient Name: DIVYA PITT Admission Status: Urgent Accout number: [id number] Admission Date: 05-08-2018 : 1965 Admission Diagnosis:SHORTNESS OF BREATH Attending: AMELIA GARCIA Current LOS: 2 Anticipated DC Date: Planned Disposition: Home Primary Insurance: [facility] MEDICARE SOLUTIONS Discharge Planning Comments: CM TALKED WITH PATIENT VIA TELEPHONE ABOUT DC PLANNINNG/NEEDS. STATES PLANS TO DC TO HOME WITH . DENIES ANY NEEDS. CM WILL FOLLOW AND ASSIST NEEDED WITH DC PLANNING/NEEDS. Airway Controller: Sarah Dickerson DCPIA - Discharge Planning Initial Assessment Updated by [id number]: Sarah Dickerson on 05/10/18 3:01 pm * Is the patient Alert and Oriented? Yes * PCP FARO * Pharmacy [facility] * Preadmission Environment Home with Family * ADLs Independent * Additional services required to return to the preadmission environment? No * Can the patient safely return to the preadmission environment? Yes * Has this patient been hospitalized within the prior 30 days at any hospital? No Coverage Notice Reviewer: [id number] - Sarah Dickerson Notice Issued Date-Time: 05/16/2018 11:08 Notice Type: IM Discharge Notice Notice Delivered To: Patient Relationship to Patient: Self Music Teacher Name: Delivery Method: HAND - Hand Delivered Ceci Days: Prior Verbal Notification: Recipient Understood Notice: Yes Recipient Signature: Yes Med Rec Note Co-signed by Attending: Coverage Notice Comment: Last DP export: 05/16/18 10:23 a Patient Name: DIVYA PITT Page [id number] at 1648 All edits/amendments must be made on the electronic document DICTATION DATE: 05/17/181646 [employer] SUPERVISOR: SULMA 05/17/181646 RPT#: [id number] DC DATE:05/16/18 STATUS: DIS IN [facility] [address] [place] [address] END OF REPORT
== END 2018-05-16 15:27 | disposition home or self-care (01) | DRG 152 ==
LOC: D.SDCHOLD 16:01 → D.M3 16:01
PROVIDERS: Family Medicine Adult Medicine; ADMIT Family Medicine
DX: J11.1 Influenza due to unidentified influenza virus with other respiratory manifestations (principal); I50.33 Acute on chronic diastolic (congestive) heart failure; N17.9 Acute kidney failure, unspecified; J11.00 Influenza due to unidentified influenza virus with unspecified type of pneumonia; E86.0 Dehydration; E11.65 Type 2 diabetes mellitus with hyperglycemia; J44.9 Chronic obstructive pulmonary disease, unspecified; G47.33 Obstructive sleep apnea (adult) (pediatric); I25.10 Atherosclerotic heart disease of native coronary artery without angina pectoris; M06.9 Rheumatoid arthritis, unspecified; E11.43 Type 2 diabetes mellitus with diabetic autonomic (poly)neuropathy; K31.84 Gastroparesis; F41.9 Anxiety disorder, unspecified; I11.0 Hypertensive heart disease with heart failure

== ENCOUNTER 2018-06-12 12:55 | Emergency (ER) | payer MEDICARE, MEDICAID ==
[~2018-06-12] VITALS: Ht 154.9 cm; Wt 67.4 kg
[~2018-06-12 12:55] MED LIST changes: +POTASSIUM CHLO10 ME1 PO
[2018-06-12 13:00] VITALS: BP 94/63; Ht 154.9 cm; Wt 67.4 kg
[2018-06-12] MEDS ORDERED: ZOLOFT50 MG PO (13:09)
[2018-06-12 14:00] LABS: BASOPHILS 0.3 % (0-2); EOSINOPHILS 0.8 % (0-7); HEMATOCRIT 40.7 % (36.0-48.0); IMMATURE GRANULOCYTES 0.3 % (0-5); LYMPHOCYTES 26.9 % (15-50); MCH 30.3 pg (26.0-34.0); MCHC 34.4 g/dL (31.0-37.0); MCV 88.1 fL (80.0-100.0); MEAN PLATELET VOLUME 9.5 fL (7.4-10.4); MONOCYTES 6.9 % (2-11); NEUTROPHILS 64.8 % (40-80); RBC 4.62 10x6/uL (4.00-5.40); RDW 14.2 % (11.5-14.5); WBC 7.7 10x3/uL (4.8-10.8)
[2018-06-12 14:13] LABS: ALBUMIN 3.3 g/dL (3.4-5.0); ALKALINE PHOSPHATASE 85 U/L (46-116); ALT (SGPT) 53 U/L (10-68); BILIRUBIN - TOTAL 0.67 mg/dL (0.2-1.3); CALC OSMOLALITY 285 mosm/kg (275-300); CALCIUM 8.7 mg/dL (8.5-10.1); CARBON DIOXIDE 24.8 mmol/L (21.0-32.0); CHLORIDE - SERUM 102 mmol/L (98-107); CREATININE - SERUM 0.8 mg/dL (0.6-1.3); GLUCOSE 274 mg/dL (74-106); POTASSIUM - SERUM 3.5 mmol/L (3.5-5.1); PROTEIN - SERUM 7.2 g/dL (6.4-8.2); SODIUM 139 mmol/L (136-145); UREA NITROGEN 7 mg/dL (7-18); eGFR NON AFRICAN AMERICAN 79 mL/min (90-120)
[2018-06-12 14:16] LABS: AMYLASE - SERUM 26 U/L (25-115); LIPASE 202 U/L (73-393); TROPONIN-I < 0.017 ng/mL (0.000-0.060)
[2018-06-12 14:23] LABS: PLATELET COUNT 171 10x3/uL (130-400)
[2018-06-12 15:38] LABS: APPEARANCE CLEAR (CLEAR); COLOR YELLOW (YELLOW); NITRITE NEGATIVE (NEGATIVE); PROTEIN 1+ mg/dL (NEGATIVE); SPECIFIC GRAVITY 1.025 (1.005-1.020)
[2018-06-12 15:39] LABS: BILIRUBIN NEGATIVE (NEGATIVE); GLUCOSE NEGATIVE (NEGATIVE); KETONE NEGATIVE (NEGATIVE); UROBILINOGEN NORMAL (NORMAL)
== END 2018-06-12 19:08 | disposition home or self-care (01) ==
LOC: D.ER 12:55
PROVIDERS: Emergency Medicine
DX: R16.2 Hepatomegaly with splenomegaly, not elsewhere classified (principal); K76.0 Fatty (change of) liver, not elsewhere classified

== ENCOUNTER 2018-07-05 19:55 | Emergency (ER) | payer MEDICARE, MEDICAID ==
[~2018-07-05] VITALS: Ht 154.9 cm; Wt 65.9 kg
[~2018-07-05 19:55] MED LIST changes: +ZOLOFT50 MG PO
[2018-07-05 20:37] VITALS: Ht 154.9 cm; Wt 65.9 kg
[2018-07-05] MEDS ORDERED: ROBAXIN500 MG PO (22:16)
[2018-07-05 23:12] VITALS: BP 165/86
== END 2018-07-05 23:18 | disposition home or self-care (01) ==
LOC: D.ER 19:55
DX: M54.16 Radiculopathy, lumbar region (principal); M54.5 Low back pain

== ENCOUNTER → 2018-07-25 15:17 | Outpatient (CLI) | payer MEDICARE, MEDICAID ==
[2018-07-05 20:37] VITALS: BMI 27.4
== END | disposition home or self-care (01) ==
LOC: D.CT 15:17
PROVIDERS: ATTEND Family Medicine
DX: Z87.442 Personal history of urinary calculi (principal)

== ENCOUNTER 2018-08-30 13:31 | Emergency (ER) | payer MEDICARE, MEDICAID ==
[~2018-08-30] VITALS: Ht 154.9 cm; Wt 65.9 kg
[2018-08-30 13:52] VITALS: Ht 154.9 cm; Wt 65.9 kg
[2018-08-30 14:24] LABS: BASOPHILS 0.3 % (0-2); EOSINOPHILS 1.4 % (0-7); HEMATOCRIT 43.2 % (36.0-48.0); HEMOGLOBIN 15.4 g/dL (12-16); IMMATURE GRANULOCYTES 0.4 % (0-5); LYMPHOCYTES 28.5 % (15-50); MCHC 35.6 g/dL (31.0-37.0); MCV 86.9 fL (80.0-100.0); MEAN PLATELET VOLUME 9.6 fL (7.4-10.4); NEUTROPHILS 63.4 % (40-80); PLATELET COUNT 158 10x3/uL (130-400); RBC 4.97 10x6/uL (4.00-5.40); RDW 13.6 % (11.5-14.5)
[2018-08-30 14:40] LABS: ALBUMIN 3.6 g/dL (3.4-5.0); ALKALINE PHOSPHATASE 108 U/L (46-116); ALT (SGPT) 54 U/L (10-68); AMYLASE - SERUM 37 U/L (25-115); BILIRUBIN - TOTAL 0.42 mg/dL (0.2-1.3); CALC OSMOLALITY 282 mosm/kg (275-300); CALCIUM 9.9 mg/dL (8.5-10.1); CARBON DIOXIDE 27.6 mmol/L (21.0-32.0); CHLORIDE - SERUM 101 mmol/L (98-107); CREATININE - SERUM 0.7 mg/dL (0.6-1.3); GLUCOSE 241 mg/dL (74-106); LIPASE 255 U/L (73-393); PROTEIN - SERUM 7.7 g/dL (6.4-8.2); SODIUM 138 mmol/L (136-145); UREA NITROGEN 9 mg/dL (7-18); eGFR NON AFRICAN AMERICAN > 90 mL/min (90-120)
[2018-08-30 14:43] LABS: APPEARANCE HAZY (CLEAR); BILIRUBIN NEGATIVE (NEGATIVE); COLOR YELLOW (YELLOW); GLUCOSE 100 mg/dL (NEGATIVE); KETONE MODERATE mg/dL (NEGATIVE); NITRITE NEGATIVE (NEGATIVE); PROTEIN NEGATIVE (NEGATIVE); SPECIFIC GRAVITY 1.015 (1.005-1.020); UROBILINOGEN NORMAL (NORMAL)
[2018-08-30 14:46] LABS: BACTERIA MODERATE /hpf (NONE SEEN); EPITHELIAL CELLS 0-5 /hpf (0-5); RED CELLS - URINE 0-5 /hpf (0-5)
[2018-08-30] MEDS ORDERED: BENTYL 20 MG TA20 MG PO (17:23)
[2018-08-30] MEDS ORDERED: MACROBID100 MG PO (17:23)
[2018-08-30 18:39] VITALS: BP 148/96
== END 2018-08-30 16:23 | disposition other institution (70) ==
LOC: D.ER 13:31
PROVIDERS: Emergency Medicine
DX: N39.0 Urinary tract infection, site not specified (principal); G89.29 Other chronic pain; E11.9 Type 2 diabetes mellitus without complications

== ENCOUNTER 2018-09-09 08:00 | Outpatient (CLI) | payer MEDICARE, MEDICAID ==
[2018-08-30 13:52] VITALS: BMI 27.4
[~2018-09-09 08:00] MED LIST changes: +BENTYL 20 MG TA20 MG PO; +MACROBID100 MG PO
== END 2018-09-09 23:59 | disposition home or self-care (01) ==
LOC: D.MAMMO 08:00
PROVIDERS: ATTEND Family Medicine
DX: Z12.31 Encounter for screening mammogram for malignant neoplasm of breast (principal)

== ENCOUNTER 2018-09-13 03:02 | Observation (INO) | payer MEDICARE, MEDICAID ==
[2018-09-13] VITALS (17 sets, daily range): BP systolic 108–160; BP diastolic 66–109; BMI 28.4
--- NOTE | ~2018-09-13 | HEMODYNAMI ---
PATIENT:DIVYA PITT MEDICAL RECORD: [id number] : [birth year] [facility] [id number] ADMISSION DATE: 09/13/18 Generatedon:09/13/201813:52 Patient name: IDVYA PITT Patient #: [id number] : 1965 Date of study: 09/13/2018 Page: Of Hemodynamic Procedure Report Patient Data Patient Demographics Procedure consent was obtained First Name: DIVYA Gender: Female Last Name: YOANDY : 1965 Middle Initial: SOPHY Age: 53 year(s) Patient #: [id number] Race: SSN: [id number] Additional ID: [id number] Contact details [address]: [address] [place] [address] State: [place] City: [place] Zip code: [address] Past Medical History Allergies Allergen Reaction Date Comments Reported Other 06/11/2014 Apple Juice, ASA, Motrin, allergy Geodon, Anti-inflammatories, Depakote, Augmentin Other 02/18/2016 Aspirin, Geodon, Ibuprofen, allergy Steroids, Depakote Other 07/11/2017 PCN, NSAIDS, Amoxicillin, allergy aspirin, coconut, divalproex sodium, ibuprofen, menthol, meperidine, potassium clavulante, ziprasidone HCL, ziprasidone mesylate, apple juice. Other 11/07/2017 MOTRIN,ASPIRIN,GODON,GABAPETIN, allergy DEPAKOTE,PCN,INSAIDS Other 03/31/2018 on chart allergy Admission Admission Data Admission Date: 09/13/2018 Admission Time: 3:43 Arrival Date: 09/13/2018 Arrival Time: 3:43 Admit Source: Other Insurance Payor: Private Room #: D.[id number] health insurance Height (in.): 61.42 BSA: 1.68 (m2) Height (cm.): 156 BMI: 27.94 (kg/m2) Weight (lbs.): 149.92 Weight (kg.): 68 Procedure Procedure Types Cath Procedure Diagnostic Procedure [facility] w/Coronaries FFR/IVUS FFR Initial Sedation Charges Moderate Sedation up to 15 minutes PCI Procedure Coronary Stent Coronary Stent Initial Procedure Description Procedure Date Procedure Date: 09/13/2018 Procedure Start Time: 13:30 Procedure End Time: 13:46 Procedure Staff Name Function Dilan Pisano MD Performing Physician Dianne Walker RT Monitor Terence Nunn RT Scrub Thelma Fuentes RN Nurse Procedure Data Cath Procedure Fluoroscopy Diagnostic fluoroscopy Total fluoroscopy Time: 2.7 time: 2.7 min min Diagnostic fluoroscopy Total fluoroscopy dose: 593 dose: 593 mGy mGy Contrast Material Contrast Material Type Amount (ml) Isovue 370 90 Entry Location Entry Primary Successful Side Size Upsize Upsize Entry Closure Succes sful Closure Location (Fr) 1 (Fr) 2 (Fr) Remarks Device Remarks Femoral Right 5 Fr 6 Fr Exoseal artery Short Estimated blood loss: 5 ml Diagnostic catheters Device Type Used For End Catheter Placement MULTIPACK Pigtail 5 Fr LV Angiography catheter MULTIPACK JL 4.0 5Fr Left Coronary catheter Angiography MULTIPACK 3DRC 5Fr Right Coronary catheter Angiography Procedure Complications No complications Procedure Medications Medication Administration Route Dosage 0.9% NaCl I.V. 100 ml/hr Oxygen etCO2 Nasal cannula 2 l/min Lidocaine 2% added to field 20 Heparin Flush Bag added to field 2 bags (1000units/500ml NS) Versed I.V. 2 mg Fentanyl I.V. 50 mcg Heparin Bolus I.V. 4000 units Integrilin (Bolus I.V. 6.2 ml 2mg/ml) Plavix P.O. 600 mg Hemodynamics Rest BSA: 1.68 (m2) O2 Consumption: Estimated: 177.82 (ml/min) O2 Consumption indexed : Estimated:105.85 (ml/min/m) Heart Rate: 95 (bpm) Pressure Samples Time Site Value (mmHg) Purpose Heart Use Rate(bpm) 13:31 LV 70/42,39 Snapshot 87 Snapshots Pre Cath Intra NCS Post Cath Vital Signs Time Heart Resp SPO2 etCO2 NIBP (mmHg) Rhythm Pain Sedation Rate (ipm) (%) (mmHg) Status Level (bpm) 13:21:54 94 19 97 39.1 149/94(118) NSR 0 (11) 10(A) , No pain 13:26:12 97 19 98 36.1 130/94(110) NSR 0 (11) 10(A) , No pain 13:30:20 96 18 97 39.1 122/96(112) NSR 0 (11) 9(A) , No pain 13:34:28 97 17 97 36 122/83(105) NSR 0 (11) 9(A) , No pain 13:38:42 98 18 98 37 121/75(100) NSR 0 (11) 9(A) , No pain 13:42:54 96 17 97 38 133/79(110) NSR 0 (11) 10(A) , No pain 13:47:08 96 19 84 30 120/85(103) NSR 0 (11) 10(A) , No pain Medications Time Medication Route Dose Verified Delivered Reason Notes Effectiveness by by 13:22:26 0.9% NaCl I.V. 100 Dilan Thelma used for ml/hr Norris Fuentes truck driver's offsider 13:22:32 Oxygen etCO2 2 Dilan Thelma used for Nasal l/min Norris Fuentes procedure cannula RN 13:22:38 Lidocaine 2% added 20ml Dilan Dilan for local to vial Norris Pisano MD anesthetic field 13:22:42 Heparin Flush added 2 Dilan Dilan used for Bag to bags Norris Pisano MD procedure (1000units/500ml field NS) 13:29:34 Versed I.V. 2 mg Dilan Thelma for sedation Norris Fuentes RN 13:29:43 Fentanyl I.V. 50 Dilan Thelma for sedation mcg Norris Fuentes RN 13:41:30 Heparin Bolus I.V. 4000 Dilan Steeleyla for verif ied units Norris Fuentes anticoagulation with Dr. PARUL Pisano 13:42:46 Integrilin I.V. 6.2 Dilan Thelma for waste d (Bolus 2mg/ml) ml Norris Fuentes antiplatelet 3.8mL RN therapy 13:43:08 Plavix P.O. 600 Dilan Steeleyla for mg Norris Fuentes antiplatelet RN therapy Procedure Log Time Note 13:09:20 Diagnostic Cath Status : Elective 13:09:58 Terence Nunn RT(R) sent for patient. Start room use. 13:09:58 Time tracking: Regular hours (M-F 7:00 - 5:00) 13:10:04 Plan of Care:Hemodynamics will remain stable., Cardiac rhythm will remain stable., Comfort level will be maintained., Respiratory function will remain adequate., Patient/ family verbilizes understanding of procedure., Procedure tolerated without complication., Recovers from procedure without complications.. 13:10:25 Admit Source: Other 13:10:38 Patient Height : 61.42 inches 13:10:42 Patient Weight : 149.92 lbs 13:11:08 Arrival Date: 09/13/2018 3:43:00 AM 13:11:22 Insurance Payor : Private health insurance 13:13:12 Patient received from Med II to CCL 1 Alert and oriented. Tansferred to table in Supine position. 13:13:13 Warm blankets applied, and isidra hugger turned on for patient comfort. 13:13:14 Correct patient and procedure confirmed by team. 13:13:15 Signed procedure consent form obtained from patient. 13:13:17 ECG and BP/O2 sat monitors applied to patient. 13:17:49 Snore? Yes 13:17:51 Sleep apnea? Yes 13:17:55 Deviated septum? No 13:18:01 Opens mouth fully? Yes 13:18:04 Sticks out tongue? Yes 13:18:13 Airway obstruction? Yes copd 13:18:22 Dentures? No ? 13:20:38 H&P Date Dictated: 09/13/2018 Within 30 days and on chart., ER History on chart.. 13:20:45 Pre-procedure instructions explained to patient. 13:20:47 Vital chart was started 13:21:07 Baseline sample Acquired. 13:21:17 Rhythm: sinus rhythm 13:21:20 Full Disclosure recording started 13:21:22 Pre-op teaching completed and patient verbalized understanding. 13:21:32 Family unavailable. 13:21:34 Patient NPO since Midnight. 13:22:26 0.9% NaCl 100 ml/hr I.V. was administered by Thelma Fuentes RN; used for procedure; 13:22:32 Oxygen 2 l/min etCO2 Nasal cannula was administered by Thelma Fuentes RN; used for procedure; 13:22:38 Lidocaine 2% 20ml vial added to field was administered by Dilan Pisano MD; for local anesthetic; 13:22:42 Heparin Flush Bag (1000units/500ml NS) 2 bags added to field was administered by Dilan Pisano MD; used for procedure; 13::53 Pre procedure: right dorsailis pedis pulse 1+ Palpable, but thready & weak; easily obliterated 13:25:55 Pre procedure: left dorsailis pedis pulse 1+ Palpable, but thready & weak; easily obliterated 13:25:58 Patient pain scale 0/10 ?. 13:26:38 IV patent on arrival in right wrist with 0.9% NaCl at [facility]. 13::42 Lab results completed and on chart. 13::49 Right groin area was prepped with chlora-prep and draped in sterile fashion 13::50 Alarms reviewed by R. N. 13::51 Sharps counted by scrub and verified by R.N. 13:28:04 Physician arrived 13::04 --------ALL STOP TIME OUT------ 13::04 Final Timeout: patient, procedure, and site verified with staff and physician. All members of the team are in agreement. 13:28:06 Right groin site verified by team. 13:28:09 Maximum allowable Isovue 370 dose 300ml. Physician notified. (300ml for normal creatinines. For patients with creatinine of 1.7 or higher multiply weight(kg) x 5 divided by creatinine.) 13:28:14 Fire Safety Assessment: A--An alcohol-based skin anteseptic being used preoperatively., C--Open oxygen or nitrous oxide is being used., D--An ESU, laser, or fiber-optic light is being used. 13:28:17 Physical assessment completed. ASA score P 2 - A patient with mild systemic disease as per Dilan Pisano MD. 13:28:20 Sedation plan: IV Moderate Sedation Medication:Versed, Fentanyl 13:28:24 Use device set Femoral Dx 13:28:25 ACIST Syringe (65136) opened to sterile field. 13:28:25 Bag Decanter () opened to sterile field. 13:28:26 Medline Cath Pack ([id number]) opened to sterile field. 13:28:27 ACIST Hand Control (63780) opened to sterile field. 13:28:28 ACIST Manifold (66762) opened to sterile field. 13:28:28 DIAGNOSTIC Multipack 5Fr catheter set (NH7707) opened to sterile field. 13:28:29 Tegaderm 4 x 4 (1626W) opened to sterile field. 13:28:31 EMERALD Guide Wire (502-546) opened to sterile field. 13:28:32 SHEATH 5FR Clinton (YQU624) opened to sterile field. 13:29:34 Versed 2 mg I.V. was administered by Thelma Fuentes RN; for sedation; 13:29:43 Fentanyl 50 mcg I.V. was administered by Thelma Fuentes RN; for sedation; 13:30:02 Procedure started. 13:30:14 Local anesthetic to right femoral artery with Lidocaine 2% by Dilan Pisano MD.INITIAL ACCESS ONLY 13:30:24 A 5 Fr sheath was inserted into the Right Femoral artery 13:30:38 A MULTIPACK Pigtail 5 Fr catheter was advanced over the wire and used for LV Angiography. 13:31:11 LV hemodynamics recorded. 13:31:12 LV gram done using LARSEN 13:31:15 Injector settings: Ml/sec: 5, Volume: 15, 13:31:24 EF : 50 % 13:31:30 Catheter removed. 13:31:35 A MULTIPACK JL 4.0 5Fr catheter was advanced over the wire and used for Left Coronary Angiography. 13:32:29 LCA angiography performed. 13:32:32 Injector settings: Ml/sec: 3, Volume: 6, 13:32:55 Catheter removed. 13:33:41 A MULTIPACK 3DRC 5Fr catheter was advanced over the wire and used for Right Coronary Angiography. 13:33:43 RCA angiography performed. 13:33:45 Injector settings: Ml/sec: 3, Volume: 6, 13:33:47 Catheter removed. 13:33:48 Proceeding to intervention. 13:34:04 Phenix Verrata Plus pressure wire (43264S) opened to sterile field. 13:34:04 INFLATOR Merit BasixCompak (HT5071) opened to sterile field. 13:34:05 SHEATH 6FR Clinton (VIW768) opened to sterile field. 13:34:23 GUIDE 6FR EBU 3.0 SH catheter ([id number]) opened to sterile field. 13:37:00 Sheath upsized to a 6 Fr Short. 13:37:24 6 Fr ebu 3.0 sh guide catheter was inserted over the wire 13:38:46 WHISPER 190cm wire ([id number]) opened to sterile field. 13:38:56 FFR/IFR wire advanced. 13:39:14 Baseline FFR 1. 13:40:19 dLAD lesion measured at 0.75 with IFR 13:41:30 Heparin Bolus 4000 units I.V. was administered by Thelma Fuentes RN; for anticoagulation; verified with Dr. Pisano 13:41:45 Wire removed. 13:42:01 whisper wire advanced. 13:42:04 Wire advanced across lesion. 13:42:46 Integrilin (Bolus 2mg/ml) 6.2 ml I.V. was administered by Thelma Fuentes RN; for antiplatelet therapy; wasted 3.8mL 13:42:46 Place stent Inflation Number: 1 A TANMAY RX 3.0 x 22 stent ([id number]) was prepped and advanced across the Mid LAD . The stent was deployed at 17 RENNY for 0:10 (min:sec) . 13:43:08 Plavix 600 mg P.O. was administered by Thelma Fuentes RN; for antiplatelet therapy; 13:43:11 Inflation number: 2 The stent balloon was then re-inflated across the Mid LAD to 21 RENNY for 0:10 (min:sec) . 13:43:31 Stent catheter was removed intact over wire. 13:43:31 Wire removed. 13:43:31 Guide catheter removed. 13:43:38 EXOSEAL 6Fr (EX600) opened to sterile field. 13:43:59 Sheath removed intact; hemostasis achieved with Exoseal to the Right Femoral artery. 13:44:00 Procedure ended.(Physican Out) 13:44:50 Fluoroscopy time 02.70 minutes. 13:44:54 Fluoroscopy dose: 593 mGy 13:44:54 Flurop Dose total: 593 13:44:59 Contrast amount:Isovue 370 90ml. 13:45:47 Sharps counted by scrub and verified by R.N. 13:45:47 Insertion/operative site no bleeding no hematoma. 13:45:50 Post-op/insertion site Right Femoral artery dressed using a 4 x 4 and Tegaderm. 13:45:54 Post procedure rhythm: unchanged. 13:45:57 Estimated blood loss: 5 ml 13:45:59 Post procedure instruction explained to patient.Patient verbalizes understanding. 13:45:59 Patient needs reinforcement of post procedure teaching. 13:46:17 Procedure type changed to Cath procedure, Diagnostic procedure, LHC, C w/Coronaries, FFR/IVUS, FFR Initial, Sedation Charges, Moderate Sedation up to 15 minutes, PCI procedure, Coronary Stent, Coronary Stent Initial 13:46:18 Procedure and supply charges have been captured, reviewed, submitted and are correct. 13:46:23 Procedure Complication : No complications 13:46:26 Vital chart was stopped 13:46:26 See physician's report for complete and final results. 13:46:26 See physician's report for complete and final results. 13:46:33 Report given to [facility]. 13:46:36 Patient transfered to [facility] with Stretcher. 13:46:38 Procedure ended. 13:46:38 Full Disclosure recording stopped 13:46:45 ACC-PCI Only Patient was given prescriptions, or instructed by Dilan Pisano MD to start/continue the following medications upon discharge: Plavix 13:46:47 End room use (Document Last) Intervention Summary Intervention Notes Time ActionType Lesion and Equipment Used Action# Pressure Duration Attributes 13:42:46 Place stent Mid LAD TANMAY RX 3.0 x 1 17 00:10 22 stent ([id number]) 13:43:11 Reinflate Mid LAD TANMAY RX 3.0 x 2 21 00:10 stent 22 stent balloon ([id number]) Device Usage Item Name Manufacture Quantity Catalog Hospital Part Current Minimal Lot# / Number Charge Number Stock Stock Serial# Code ACIST Syringe Acist 1 89015 257359 834495 [id number] 20 (79478) Medical Systems Inc Bag Decanter Microtek 1 755489 60379 459891 5 () Medical Inc. Medline Cath Medline 1 [id number] 823155 03700 802580 5 Pack ([id number]) ACIST Hand Acist 1 18565 341413 758283 764699 5 Control Medical (18590) Systems Inc ACIST Manifold Acist 1 41550 013687 716096 338928 5 (70427) Medical Systems Inc DIAGNOSTIC Cardinal 1 [id number] 611844 42939 028123 30 Multipack 5Fr Health catheter set (DH2892) Tegaderm 4 x 4 3M 1 1626W 323703 169801 268974 5 (1626W) EMERALD Guide Cardinal 1 502-455 805449 428685 841056 5 Wire (502-455) Health SHEATH 5FR Terumo 1 [id number] 158336 033304 797271 5 Clinton (UZE817) MULTIPACK Cardinal 1 886427 5 Pigtail 5 Fr Health catheter MULTIPACK JL Cardinal 1 206983 5 4.0 5Fr Health catheter MULTIPACK 3DRC Cardinal 1 480983 5 5Fr catheter Health Phenix Phenix 1 59105P 890518 283004529 811578 5 Verrata Plus pressure wire (01023D) INFLATOR Merit Merit 1 WU2695 640055 528606 544694 15 The OneDerBag CompanyBlue Mountain HospitalConvo Medical (HI3693) SHEATH 6FR Terumo 1 FRB168 501246 638251 380572 40 Clinton (MIY923) GUIDE 6FR EBU Medtronic 1 [id number] 447307 86695 485885 0 3.0 SH catheter ([id number]) WHISPER 190cm Ron 1 [id number] 321000 815199 809025 5 wire Vascular ([id number]) TANMAY RX 3.0 x Medtronic 1 [id number] 260535 4221209 612005 5 [id number] 22 stent ([id number]) EXOSEAL 6Fr Cardinal 1 EX600 729800 492241 062449 10 (EX600) Health Signature Audit Marshall Stage Time Signature Unsigned Intra-Procedure 09/13/2018 Dianne Walker 1:52:01 PM RT(R) Signatures Monitor : Dianne Walker RT Signature : Date : Time : [facility] [address] [place] [id number]
[2018-09-13 03:23] LABS: BASOPHILS 0.4 % (0-2); EOSINOPHILS 1.7 % (0-7); HEMATOCRIT 42.5 % (36.0-48.0); HEMOGLOBIN 15.1 g/dL (12-16); IMMATURE GRANULOCYTES 0.5 % (0-5); LYMPHOCYTES 37.5 % (15-50); MCH 31.1 pg (26.0-34.0); MCHC 35.5 g/dL (31.0-37.0); MCV 87.6 fL (80.0-100.0); MEAN PLATELET VOLUME 9.4 fL (7.4-10.4); MONOCYTES 6.1 % (2-11); NEUTROPHILS 53.8 % (40-80); PLATELET COUNT 183 10x3/uL (130-400); RBC 4.85 10x6/uL (4.00-5.40); RDW 13.5 % (11.5-14.5); WBC 8.4 10x3/uL (4.8-10.8)
[2018-09-13 03:33] LABS: APTT 22.5 SECONDS (22.8-39.4); INR 0.98 (0.85-1.17); PROTIME 12.5 SECONDS (11.6-15.0)
[2018-09-13 03:45] LABS: ALBUMIN 3.3 g/dL (3.4-5.0); ALKALINE PHOSPHATASE 108 U/L (46-116); BILIRUBIN - TOTAL 0.46 mg/dL (0.2-1.3); CARBON DIOXIDE 28.3 mmol/L (21.0-32.0); CHLORIDE - SERUM 101 mmol/L (98-107); CREATININE - SERUM 0.7 mg/dL (0.6-1.3); LIPASE 384 U/L (73-393); MAGNESIUM - SERUM 1.7 mg/dL (1.8-2.4); PRO BNP 11 pg/mL (0-125); PROTEIN - SERUM 7.3 g/dL (6.4-8.2); SODIUM 138 mmol/L (136-145); UREA NITROGEN 13 mg/dL (7-18); eGFR NON AFRICAN AMERICAN > 90 mL/min (90-120)
[2018-09-13 03:47] LABS: ALT (SGPT) 59 U/L (10-68); CALC OSMOLALITY 287 mosm/kg (275-300); GLUCOSE 306 mg/dL (74-106); TROPONIN-I < 0.017 ng/mL (0.000-0.060)
--- NOTE | 2018-09-13 04:50 | NUR ---
REPORT RECIEVED FROM JOSELIN IN ER.
--- NOTE | 2018-09-13 05:55 | NUR ---
PATIENT IN ROOM VIA WHEELCHAIR ACCOMPANIED BY STAFF.
--- NOTE | 2018-09-13 06:01 | NUR ---
DURING SUICIDE SCREENING ASSESSMENT PATIENT ANSWERED YES TO A FEW QUESTIONS AND THE END OF THE QUESTIONAIRE SAID TO CONSULT BEHAVIOR HEALTH. CHARGE NURSE NOTIFIED. SITTER WITH PATIENT. HOUSING DOCTOR OF OSTEOPATHY NOTIFIED. ZORA FROM [facility] DID ASSESSMENT AND STATED PATIENT IS LOW RISK.
--- NOTE | 2018-09-13 06:11 | NUR ---
DR KRISHNAMURTHY NOTIFIED AND REVIEWED PT;s BEHAVIOR AND ASSESSMENT RESULTS. PT IS A LOW RISK PER DR KRISHNAMURTHY. DR KRISHNAMURTHY STATED TO GIVE RESOURCES TO PT AT TIME OF DISCHARGE. NO FURTHER ORDERS AT THIS TIME. RESOURCES REVIEWED WITH PT AND SHE VERBALIZED UNDERSTANDING.
--- NOTE | 2018-09-13 07:00 | NUR ---
PATIENT ASLEEP ON HER RIGHT SIDE, HOB SLIGHTLY ELEVATED, TELE MONITOR ON, CALL LIGHT IN REACH, LIGHTS OFF, PATIENT SNORING.
--- NOTE | 2018-09-13 09:31 | NUR ---
NOTIFIED MAURO MEAD FOR DR MARTINEZ THAT THE PATIENT HAS ALLERGY TO STEROIDS AND SOLU MEDROL NOT ORDERED PRE OP.
--- NOTE | 2018-09-13 10:39 | NUR ---
VERIFIED WITH THE PATIENT ABOUT HER HOME MEDICAITONS LASIX AND COREG, SHE DOES TAKE THOSE LISTED ON MED REC
--- NOTE | 2018-09-13 13:09 | NUR ---
MAG IVPB COMPLETED JUST NOW, SWITCHED TO PRE OP NS AND PATIENT LEFT TO GO TO PEDIATRIC ONCOLOGIST WITH HOSPITAL STAFF. CHART WITH THE PATIENT
--- NOTE | 2018-09-13 14:00 | NUR ---
PATIENT ARRIVED BACK TO THE FLOOR VIA BED, OOZING NOTED FROM CATH SITE, RIGHT GROIN, DRESSING SATURATED, CATH STAFF PLACED FEMSTOP TO THE RIGHT GROIN. PATIENT LYING FLAT, VITAL SIGN HEAD TEACHER
--- NOTE | 2018-09-13 14:21 | NUR ---
LUDIVINA MEADE RN AND CATALINA SWEENEY RT BACK TO ROOM TO CHECK FEMSTOP AND ASSESS BLEEDING, NO HEMATOMA NOTED, LET 20MMHG PRESSURE OUT AND WILL CONTINUE TO CHECK.
--- NOTE | 2018-09-13 14:35 | NUR ---
REASSESSMENT OF FEMSTOP, PULSE NOTED PEDAL, NO HEMATOMA NOTED, BLEEDING HAS STOPPED. WILL CONT TO MONITOR.
--- NOTE | 2018-09-13 15:21 | NUR ---
CALLED TO PT ROOM TO REASSESS RT GROIN SITE DUE TO PT HAVING PAIN. NO HEMATOMA OR BLEEDING NOTED, FEMSTOP REMOVED BY CATALINA SWEENEY RT, FEMSTOP AT THAT TIME WAS ONLY TO LIGHT PRESSURE, NO BULB INFLATION NOTED. PT STATES RELIEF OF PAIN, INSTRUCTED TO REMAIN STILL AND NURSE LEOBARDO WILL CONTINUE TO MONITOR. PULSE CONT TO BE PRESENT BILAT PEDAL AREAS.
--- NOTE | 2018-09-13 15:44 | NUR ---
PATIENT RESTING QUIETLY AT THIS TIME, RIGHT GROIN SITE IS CLEAN, DRY AND INTACT, NO BLEEDING NOTED. NOT HEMATOMA FELT. CALL LIGHT IN REACH
--- NOTE | 2018-09-13 18:03 | NUR ---
PATIENT HOB RAISED TO 20 DEGREES AT THIS TIME, SHE DENIES PAIN, DRESSING TO RIGHT GROIN CDI, SCD'S ON BILAT, APNEA NOTED WHEN PATIENT IS ASLEEP AND SNORING. WHEN ASKED, SHE REPORTS SHE DOES HAVE A CPAP AT HOME AND USED TO HAVE OXYGEN BUT NO LONGER HAS OXYGEN AT HOME , HAS CPAP BUT STATES SHE DOES NOT USE IT BECAUSE IT "MAKES HER CHEST HURT"
--- NOTE | 2018-09-13 19:25 | NUR ---
PT RESTING IN BED WITH EYES CLOSED RR EVEN AND UNLABORED. NO S/S OF DISTRESS AT THIS TIME. BED LOW CALL LIGHT WITHIN REACH. SIDE RAILS UP X2. WILL CONTINUE TO MONITOR.
--- NOTE | 2018-09-13 19:45 | NUR ---
ASSISTED PT UP TO BATHEROOM. PT OUTPUT 300ML URINE. GAVE PT SANDWHICH. BANDAGE TO PT RIGHT GROIN C/D/I WITHOUT ANY PAIN OR HEMATOMA. SITE SOFT TO TOUCH. NO S/S OF DISTRESS AT THIS TIME. BED LOW CALL LIGHT WITHIN REACH WILL CONTINUE TO MONITOR.
[2018-09-14] VITALS: BP 137/69
--- NOTE | 2018-09-14 02:36 | NUR ---
PT RESTING IN BED WITH EYES CLOSED. RR EVEN AND UNLABORED. NO S/S OF DISTRESS AT THIS TIME. BED LOW CALL LIGHT WITHIN REACH. WILL CONTINUE TO MONITOR.
--- NOTE | 2018-09-14 03:24 | NUR ---
I have reviewed this patient and I concur with the Shift Assessment completed by the Licensed Practical Nurse today this shift.
[2018-09-14 04:00] VITALS: BP 158/91
[2018-09-14 05:36] LABS: BASOPHILS 0.3 % (0-2); HEMATOCRIT 40.5 % (36.0-48.0); HEMOGLOBIN 13.6 g/dL (12-16); IMMATURE GRANULOCYTES 0.5 % (0-5); LYMPHOCYTES 36.7 % (15-50); MCH 30.2 pg (26.0-34.0); MCHC 33.6 g/dL (31.0-37.0); MEAN PLATELET VOLUME 9.5 fL (7.4-10.4); MONOCYTES 7.3 % (2-11); NEUTROPHILS 53.2 % (40-80); PLATELET COUNT 157 10x3/uL (130-400); RDW 13.7 % (11.5-14.5); WBC 7.6 10x3/uL (4.8-10.8)
[2018-09-14 06:02] LABS: ALBUMIN 3.1 g/dL (3.4-5.0); ALKALINE PHOSPHATASE 84 U/L (46-116); ALT (SGPT) 46 U/L (10-68); BILIRUBIN - TOTAL 0.36 mg/dL (0.2-1.3); CALCIUM 8.8 mg/dL (8.5-10.1); CARBON DIOXIDE 26.1 mmol/L (21.0-32.0); CHLORIDE - SERUM 103 mmol/L (98-107); CREATININE - SERUM 0.6 mg/dL (0.6-1.3); POTASSIUM - SERUM 4.2 mmol/L (3.5-5.1); PROTEIN - SERUM 6.6 g/dL (6.4-8.2); SODIUM 138 mmol/L (136-145); eGFR NON AFRICAN AMERICAN > 90 mL/min (90-120)
[2018-09-14 06:08] LABS: CALC OSMOLALITY 278 mosm/kg (275-300); GLUCOSE 172 mg/dL (74-106); UREA NITROGEN 9 mg/dL (7-18)
[2018-09-14 08:13] VITALS: BP 127/78
--- NOTE | 2018-09-14 11:33 | NUR ---
BLOOS SUGAR OF 161, 4UNITS OF INSULIN GIVEN PER S/S. PT IN BED, ON HER PHONE, DENIES ANY NEEDS AT THIS TIME,CALL LIGHT IN REACH, NAD NOTED.
[2018-09-14 13:18] VITALS: BP 122/79
--- NOTE | 2018-09-14 13:43 | NUR ---
4MG OF MORPHINE GIVEN FOR PAIN LEVEL OF 9/10. PT DENIES ANY OTHER NEEDS AT THIS TIME. CALL LIGHT IN REACH.
[2018-09-14 17:19] VITALS: BP 157/77
[2018-09-14 20:00] VITALS: BP 134/71
--- NOTE | 2018-09-14 20:55 | NUR ---
PT RIGHT WRIST 20G IV INFILTRATED. IV DC'D WITH CATHETER TIP IN PLACE. X2 ATTEMPTS TO RESITE WITHOUT SUCCESS. CHARGE NURSE NOTIFIED TO ACCESS PT'S PORT. PT RR EVEN AND UNLABORED NO S/S OF DISTRESS AT THIS TIME. BED LOW CALL LIGHT WITHIN REACH. WILL CONTINUE TO MONITOR.
--- NOTE | 2018-09-14 22:51 | NUR ---
PT HAS IMPLANTED PORT TO RIGHT CHEST WALL. STATES ER NURSES X 3 ATTEMPTED TO ACCESS PORT WITH NO SUCCESS. ATTEMPTED AT THIS TIME USING A 20G 1" VÁZQUEZ NEEDLE. LANDMARKS EASY TO PALPATE AND INSERTION WITH NO RESISTANCE, BUT NO BLOOD RETURN. ATTEMPTED SEVERAL REPOSITIONS WITH SAME RESULT. NO NOTED SWELLIN AROUND PORT SITE FROM BEING FLUSHED WITH NORMAL SALINE. PT STATES IT IS PROBABLY IN AND THAT SOMETIMES THERE IS NOT A BLOOD RETURN. SECURED WITH DRESSING AND PT AGREED TO LET NURSE KNOW IF SHE FELT IT WAS SWELLING. IV PAIN MED GIVEN AT THIS TIME.
--- NOTE | 2018-09-14 23:51 | NUR ---
PT COMPLAINING OF CRAMPING IN RIGHT LEG. REPOSITIONED PT IN BED. PT EATING SONIC AT THIS TIME. BED LOW CALL LIGHT WITHIN REACH. WILL CONTINUE TO MONITOR.
[2018-09-15] VITALS: BP 159/84
--- NOTE | 2018-09-15 01:13 | NUR ---
PT CURLED UP IN BED CRYING COMPLAING OF PAIN 9/10 IN RIGHT LEG. PT STATES HER LEG IS CRAMPING UP. PRN PAIN MED GIVEN THROUGH INFUSAPORT. GAVE PT WARM COMPRESS TO PUT ON RIGHT LEG. BED LOW CALL LIGHT WITHIN REACH. WILL CONTINUE TO MONITOR.
[2018-09-15 04:00] VITALS: BP 121/61
--- NOTE | 2018-09-15 05:06 | NUR ---
I have reviewed this patient and I concur with the Shift Assessment completed by the Licensed Practical Nurse today this shift.
[2018-09-15 05:18] LABS: BASOPHILS 0.2 % (0-2); EOSINOPHILS 2.2 % (0-7); HEMATOCRIT 37.9 % (36.0-48.0); HEMOGLOBIN 13.1 g/dL (12-16); IMMATURE GRANULOCYTES 0.6 % (0-5); LYMPHOCYTES 33.3 % (15-50); MCH 30.8 pg (26.0-34.0); MCHC 34.6 g/dL (31.0-37.0); MCV 89.2 fL (80.0-100.0); MEAN PLATELET VOLUME 9.6 fL (7.4-10.4); MONOCYTES 7.2 % (2-11); NEUTROPHILS 56.5 % (40-80); PLATELET COUNT 143 10x3/uL (130-400); RBC 4.25 10x6/uL (4.00-5.40); RDW 13.4 % (11.5-14.5); WBC 6.5 10x3/uL (4.8-10.8)
[2018-09-15 05:40] LABS: ALBUMIN 2.9 g/dL (3.4-5.0); ALKALINE PHOSPHATASE 82 U/L (46-116); ALT (SGPT) 47 U/L (10-68); BILIRUBIN - TOTAL 0.32 mg/dL (0.2-1.3); CALC OSMOLALITY 287 mosm/kg (275-300); CALCIUM 8.9 mg/dL (8.5-10.1); CARBON DIOXIDE 28.4 mmol/L (21.0-32.0); CHLORIDE - SERUM 104 mmol/L (98-107); CREATININE - SERUM 0.6 mg/dL (0.6-1.3); MAGNESIUM - SERUM 1.8 mg/dL (1.8-2.4); POTASSIUM - SERUM 4.2 mmol/L (3.5-5.1); PROTEIN - SERUM 6.5 g/dL (6.4-8.2); SODIUM 139 mmol/L (136-145); UREA NITROGEN 10 mg/dL (7-18); eGFR NON AFRICAN AMERICAN > 90 mL/min (90-120)
[2018-09-15 05:46] LABS: GLUCOSE 304 mg/dL (74-106)
[2018-09-15 08:51] VITALS: BP 140/88
[2018-09-15 12:21] VITALS: BP 129/87
[2018-09-15] MEDS ORDERED: PLAVIX75 MG PO (16:34)
--- NOTE | 2018-09-15 17:38 | NUR ---
ALERT AND ORIENTED X 4. SITTING UP IN BED. FAMILY AT BEDSIDE. FLUSH RT CHEST IP. DC RT CHEST IP TIP INTACT. DISCHARGE INSTRUCTIONS GIVEN VERBALLY AND WRITTEN. DISCHARGE PAPERS SIGNED ON CHART. ESCORT TO RIDE VIA WHEELCHAIR. REMAINS FREE FROM INJURY.
--- NOTE | 2018-09-16 08:30 | MORECARE ---
CASE MANAGEMENT DISCHARGE SUMMARY PATIENT: DIVYA PITT SOPHY UNIT: [id number] ADM DATE: 09/13/18 AGE: 53 : 61 SEX: F ROOM/BED: D.2113 AUTHOR: SAYRA REYNAGA PHYSICIAN: REFERRING PHYSICIAN: BRUNA HERNANDEZ MD DATE OF SERVICE: 09/16/18 Discharge Plan Patient Name: DIVYA PITT [facility] [facility] 1965 Planned Disposition: Home Anticipated Discharge Date: 09/15/18 Discharge Date: 09/15/2018 Expected LOS: 2 Initial Reviewer: [email or web address] Initial Review Date: 09/16/2018 Generated: 09/16/18 9:30 am Coverage Notice Reviewer: [email or web address] Ernestine Nails Notice Issued Date-Time: 09/13/2018 9:36 Notice Type: Medicare Outpatient Observation Notice Notice Delivered To: Patient Relationship to Patient: Self Powerhouse Helper Name: Delivery Method: HAND - Hand Delivered Ceci Days: Prior Verbal Notification: Recipient Understood Notice: Yes Recipient Signature: Yes Med Rec Note Co-signed by Attending: Coverage Notice Comment: Patient Name: DIVYA PITT Page [id number] at 0830 All edits/amendments must be made on the electronic document DICTATION DATE: 09/16/18828 SUSTAINABILITY OFFICER: SULMA 09/16/18828 RPT#: [id number] DC DATE:09/15/18 STATUS: DIS IN [facility] [address] [place] [address] END OF REPORT
--- NOTE | 2018-09-16 09:50 | EC ---
PATIENT:DIVYA PITT DATE OF SERVICE: 09/13/18 SEX: F MEDICAL RECORD: [id number] DATE OF : 61 LOCATION:D.M2 D.211 AGE OF PATIENT: 53 ADMISSION DATE: 09/13/18 REFERRING PHYSICIAN: INTERPRETING PHYSICIAN: AZEEM PISANO MD ECHOCARDIOGRAM REPORT ECHO CHARGES 4 ECHO COMPLETE Date: 09/13/18 CLINICAL DIAGNOSIS: CP ECHOCARDIOGRAPHIC MEASUREMENTS (adult normal given) AC root (d.<3.7cm) 2.3 cm LV Septum d (<1.2 cm> 0.7 cm Valve Excursion 1.2 cm LV Septum (systole) 1.1 cm Left Atria (s.<4.0cm> 3.7 cm LVPW d(<1.2cm) 1.2 cm RV (d.<2.3cm) 2.4 cm LVPW (sytole) 1.4 cm LV diastole(<5.6CM) 6.0 cm MV E-F(>70mm/sec) cm LV systole 4.9 cm LVOT Diameter 1.5 cm MV exc.(>10mm) cm Est.ejection fraction (50-75%) % DOPPLER: LVIT cm/sec A 96 cm/sec E 67 cm/sec LA cm/sec RVSP 26.3 mmHg LVOT 94 cm/sec AOP1/2T m/s Asc. Ao 128 cm/sec RVOT 79 cm/sec RA cm/sec PA 120 cm/sec AV Gradient Peak 6.5 mmHg AV Mean 4.5 mmHg AV Area 1.3 cm MV Gradient Peak 5.3 mmHg MV Mean 2.6 mmHg MV Area cm COMMENTS: Director Statistical Programming: Jose TRANJS KARAN Contact Lens Technician: 1 Dr. Pisano TAPE# PACS Pericardial Effusion N DATE OF SERVICE: 09/13/2018 PROCEDURE: Echocardiogram. FINDINGS: 1. Left ventricular chamber size is within normal limits. Left ventricular systolic function is normal. Overall ejection fraction estimated at 55%. 2. Left atrium, right atrium, and right ventricular chamber sizes are within normal limits. 3. Valvular structures have normal structure and motion. ECHOCARDIOGRAM REPORT [id number] DIVYA PITT 4. Doppler interrogation reveals trace mitral regurgitation, mild tricuspid regurgitation, no other valvular insufficiency or stenosis. Pulmonary systolic pressure is normal, estimated at 26 mmHg. 5. No evidence of pericardial effusion or left ventricular thrombus. TRANSINT:[id number] Voice Confirmation ID: [id number] DOCUMENT ID: [id number] AZEEM PISANO MD at 0950 CC: [id number] DICTATION DATE: 09/13/181424 SENIOR ADULTS DIRECTOR: 09/13/18 1526 DIS IN 09/15/18 [facility] [address] [place] [id number]
--- NOTE | 2018-09-16 09:50 | OP ---
PATIENT NAME: DIVYA PITT MEDICAL RECORD: [id number] :61 LOCATION:D.M2 D.2113 ADMISSION DATE:09/13/18 SURGEON: AZEEM MARTINEZ MD DATE OF OPERATION: 09/13/2018 PROCEDURES: 1. PTCA stent LAD. 2. Left heart catheterization. 3. Selective coronary angiography. 4. Left ventriculogram. 5. IFR. INDICATION: Non-Q-wave myocardial infarction. DESCRIPTION OF PROCEDURE: After informed consent was obtained and after a detailed description of the risks, benefits as well as alternative therapies, the patient elected to proceed with angiogram and angioplasty. The right femoral area was prepped and draped in normal sterile fashion. Right femoral artery was cannulated via modified Seldinger technique with placement of 6-Romansh sheath. All catheters exchanged through this sheath. FINDINGS: Left ventriculogram was performed in a standard 30-degree LARSEN view, reveals good cardiac wall motion, ejection fraction 50%. SELECTIVE CORONARY ANGIOGRAPHY: 1. Left main is with no significant angiographic disease. 2. Left anterior descending has previously placed stents. There is questionable stenosis at the ostium; however IFR in the proximal LAD was normal. There is questionable 75% in-stent restenosis in the mid vessel. IFR was grossly abnormal at 0.73. 3. Left circumflex has moderate irregularities, but no flow-limiting stenosis. 4. Right coronary artery has moderate irregularities, but no flow-limiting stenosis. PTCA STENT OF THE MID LAD: The stent used was a 3.0 x 22 mm Mcneil. Result was 0% residual stenosis. OVERALL IMPRESSION: Successful percutaneous transluminal coronary angioplasty stent of the left anterior descending going from 75% initial stenosis with in-stent restenosis to 0% residual. TRANSINT:[id number] Voice Confirmation ID: [id number] DOCUMENT ID: [id number] AZEEM MARTINEZ MD at 0950 CC: [id number] DICTATION DATE: 09/13/18 1347 CABLE MACHINE OPERATOR: 09/13/18 1504 DIS IN 09/15/18 [facility] [address] [place] [id number]
== END 2018-09-15 17:40 | disposition home or self-care (01) ==
LOC: D.ER 03:02 → D.M2 03:43 → OBSVTIME 03:43 → D.M2 04:20
PROVIDERS: Family Medicine; ADMIT Family Medicine; ATTEND Family Medicine
DX: I21.4 Non-ST elevation (NSTEMI) myocardial infarction (principal); T82.855A Stenosis of coronary artery stent, initial encounter; Y83.9 Surgical procedure, unspecified as the cause of abnormal reaction of the patient, or of later complication, without mention of misadventure at the time of the procedure; Z86.73 Personal history of transient ischemic attack (TIA), and cerebral infarction without residual deficits; I10 Essential (primary) hypertension; J44.9 Chronic obstructive pulmonary disease, unspecified; F31.9 Bipolar disorder, unspecified; F41.9 Anxiety disorder, unspecified; F17.203 Nicotine dependence unspecified, with withdrawal; I25.10 Atherosclerotic heart disease of native coronary artery without angina pectoris; E11.65 Type 2 diabetes mellitus with hyperglycemia; M70.61 Trochanteric bursitis, right hip
CPT/HCPCS: 93458; C9600

== ENCOUNTER → 2018-09-16 10:03 | Outpatient (CLI) | payer MEDICARE, MEDICAID ==
[2018-09-13 08:35] VITALS: BMI 28.4
== END | disposition home or self-care (01) ==
LOC: D.RAD 10:03
PROVIDERS: ATTEND Family Medicine
DX: M70.71 Other bursitis of hip, right hip (principal); M54.6 Pain in thoracic spine

== ENCOUNTER 2019-05-27 14:52 | Emergency (ER) | payer OTHER, MEDICARE, MEDICAID ==
[~2019-05-27] VITALS: Ht 154.9 cm; Wt 62.7 kg
[2019-05-27 15:26] VITALS: Ht 154.9 cm; Wt 62.7 kg
[2019-05-27] MEDS ORDERED: METHOTREXATE2.5 MG PO (15:29)
[2019-05-27 16:03] LABS: BASOPHILS 0.3 % (0-2); EOSINOPHILS 2.3 % (0-7); HEMATOCRIT 41.2 % (36.0-48.0); HEMOGLOBIN 14.4 g/dL (12-16); IMMATURE GRANULOCYTES 0.9 % (0-5); LYMPHOCYTES 32.4 % (15-50); MCH 31.4 pg (26.0-34.0); MCV 89.8 fL (80.0-100.0); MEAN PLATELET VOLUME 9.5 fL (7.4-10.4); MONOCYTES 6.4 % (2-11); NEUTROPHILS 57.7 % (40-80); PLATELET COUNT 159 10x3/uL (130-400); RBC 4.59 10x6/uL (4.00-5.40); RDW 13.9 % (11.5-14.5); WBC 7.4 10x3/uL (4.8-10.8)
[2019-05-27 16:28] LABS: CALC OSMOLALITY 288 mosm/kg (275-300); CALCIUM 8.9 mg/dL (8.5-10.1); CARBON DIOXIDE 29.6 mmol/L (21.0-32.0); CHLORIDE - SERUM 102 mmol/L (98-107); CREATININE - SERUM 0.8 mg/dL (0.6-1.3); GLUCOSE 305 mg/dL (74-106); POTASSIUM - SERUM 4.2 mmol/L (3.5-5.1); SODIUM 139 mmol/L (136-145); UREA NITROGEN 12 mg/dL (7-18); eGFR NON AFRICAN AMERICAN 78 mL/min (90-120)
[2019-05-27 16:44] LABS: ALBUMIN 3.5 g/dL (3.4-5.0); ALKALINE PHOSPHATASE 95 U/L (30-120); ALT (SGPT) 36 U/L (10-68); BILIRUBIN - TOTAL 0.36 mg/dL (0.2-1.3); CKMB 0.5 U/L (0.0-3.6); CREATINE KINASE 38 UL (21-215); MAGNESIUM - SERUM 1.5 mg/dL (1.8-2.4); PROTEIN - SERUM 7.1 g/dL (6.4-8.2); TROPONIN-I < 0.017 ng/mL (0.000-0.060)
[2019-05-27 16:47] LABS: APTT 23.1 SECONDS (22.8-39.4)
[2019-05-27 17:08] LABS: INR 0.99 (0.85-1.17); PROTIME 13.1 SECONDS (11.6-15.0)
[2019-05-27 21:03] VITALS: BP 118/69
== END 2019-05-27 21:03 | disposition home or self-care (01) ==
LOC: D.ER 14:52
PROVIDERS: Family Medicine
DX: E11.65 Type 2 diabetes mellitus with hyperglycemia (principal); K21.0 Gastro-esophageal reflux disease with esophagitis; Z86.73 Personal history of transient ischemic attack (TIA), and cerebral infarction without residual deficits; Z79.4 Long term (current) use of insulin

== ENCOUNTER 2019-12-24 11:12 | Emergency (ER) | payer OTHER, MEDICARE, MEDICAID ==
[~2019-12-24] VITALS: Ht 154.9 cm; Wt 64.5 kg
[~2019-12-24 11:12] MED LIST changes: +METHOTREXATE2.5 MG PO
[2019-12-24 11:53] VITALS: Ht 154.9 cm; Wt 64.5 kg
[2019-12-24 12:58] LABS: BASOPHILS 0.5 % (0-2); HEMOGLOBIN 13.8 g/dL (12-16); IMMATURE GRANULOCYTES 0.5 % (0-5); LYMPHOCYTES 32.9 % (15-50); MCH 30.7 pg (26.0-34.0); MCHC 33.7 g/dL (31.0-37.0); MCV 91.1 fL (80.0-100.0); MEAN PLATELET VOLUME 9.2 fL (7.4-10.4); MONOCYTES 7.1 % (2-11); PLATELET COUNT 162 10x3/uL (130-400); RDW 13.1 % (11.5-14.5); WBC 6.1 10x3/uL (4.8-10.8)
[2019-12-24 13:00] LABS: BILIRUBIN NEGATIVE (NEGATIVE); KETONE SMALL mg/dL (NEGATIVE); NITRITE NEGATIVE (NEGATIVE); UROBILINOGEN NORMAL mg/dL (< 2)
[2019-12-24 13:08] LABS: CALC OSMOLALITY 284 mosm/kg (275-300); CALCIUM 8.9 mg/dL (8.5-10.1); CARBON DIOXIDE 29.9 mmol/L (21.0-32.0); CHLORIDE - SERUM 102 mmol/L (98-107); CREATININE - SERUM 0.7 mg/dL (0.6-1.3); GLUCOSE 260 mg/dL (74-106); POTASSIUM - SERUM 4.8 mmol/L (3.5-5.1); SODIUM 138 mmol/L (136-145); UREA NITROGEN 12 mg/dL (7-18); eGFR NON AFRICAN AMERICAN > 90 mL/min (90-120)
[2019-12-24 13:17] LABS: ALBUMIN 3.5 g/dL (3.4-5.0); ALKALINE PHOSPHATASE 100 U/L (30-120); ALT (SGPT) 32 U/L (10-68); AMYLASE - SERUM 50 U/L (25-115); BILIRUBIN - TOTAL 0.32 mg/dL (0.2-1.3); LIPASE 222 U/L (73-393); PROTEIN - SERUM 7.1 g/dL (6.4-8.2); TROPONIN-I < 0.017 ng/mL (0.000-0.060)
[2019-12-24] MEDS ORDERED: LEVSIN/ANASP0.125 MG PO (16:31)
[2019-12-24 16:57] VITALS: BP 153/80
== END 2019-12-24 16:49 | disposition home or self-care (01) ==
LOC: D.ER 11:12
PROVIDERS: Family Medicine
DX: G89.29 Other chronic pain (principal); R10.9 Unspecified abdominal pain; R11.0 Nausea; E11.9 Type 2 diabetes mellitus without complications; Z86.73 Personal history of transient ischemic attack (TIA), and cerebral infarction without residual deficits; Z79.4 Long term (current) use of insulin

== ENCOUNTER 2020-05-21 10:00 | Day surgery (SDC) | payer MEDICARE, MEDICAID ==
[2020-05-17 16:04] LABS: BASOPHILS 0.3 % (0-2); EOSINOPHILS 1.5 % (0-7); HEMATOCRIT 44.3 % (36.0-48.0); HEMOGLOBIN 15.3 g/dL (12-16); IMMATURE GRANULOCYTES 0.5 % (0-5); LYMPHOCYTE ABS# 2.46 10x3/uL (1.18-3.74); LYMPHOCYTES 31.2 % (15-50); MCH 30.5 pg (26.0-34.0); MCHC 34.5 g/dL (31.0-37.0); MCV 88.4 fL (80.0-100.0); MEAN PLATELET VOLUME 9.7 fL (7.4-10.4); NEUTROPHIL ABS# 4.62 10x3/uL (1.56-6.13); NEUTROPHILS 58.5 % (40-80); PLATELET COUNT 160 10x3/uL (130-400); RBC 5.01 10x6/uL (4.00-5.40); WBC 7.9 10x3/uL (4.8-10.8)
[2020-05-17 16:29] LABS: CALC OSMOLALITY 276 mosm/kg (275-300); CALCIUM 8.8 mg/dL (8.5-10.1); CARBON DIOXIDE 23.4 mmol/L (21.0-32.0); CHLORIDE - SERUM 98 mmol/L (98-107); CREATININE - SERUM 0.7 mg/dL (0.6-1.3); GLUCOSE 234 mg/dL (74-106); POTASSIUM - SERUM 4.1 mmol/L (3.5-5.1); SODIUM 135 mmol/L (136-145); UREA NITROGEN 10 mg/dL (7-18); eGFR NON AFRICAN AMERICAN > 90 mL/min (90-120)
[~2020-05-21] VITALS: Ht 154.9 cm; Wt 68.0 kg
[~2020-05-21 10:00] MED LIST changes: +ESTRACE 0.0142.5 GM; +FLUCONAZOLE150 MG PO; +GLIPIZIDE5 MG; +LEVSIN/ANASP0.125 MG PO; +VITAMIN D31250 MCG PO
[2020-05-21 10:29] VITALS: BP 154/91; Ht 154.9 cm; Wt 68.0 kg
--- NOTE | 2020-05-21 17:52 | NUR ---
IV D/C'D WITH CANNULA INMTACT, PRESSURE HELD AND DRSG PLACED. DISCHARGE INSTRUCTIONS GIVEN AND PT VERBALIZED AN UNDERSTANDING
--- NOTE | 2020-05-25 07:01 | OP ---
PATIENT NAME: DIVYA PITT MEDICAL RECORD: [id number] :61 LOCATION:[facility] ADMISSION DATE: SURGEON: SELVIN LOPES DO DATE OF OPERATION: 05/21/2020 PROCEDURES PERFORMED: Right fourth and fifth A1 magi release, right endoscopic carpal tunnel release and right cubital tunnel release. INDICATIONS: Ms. Meeks is a 55-year-old female who has had right carpal tunnel syndrome, right cubital tunnel syndrome noted on nerve conduction study and then had trigger fingers in the fourth and fifth digits of the right hand. I told her we could do everything at once and she would be at risk for infection, bleeding, damage to the median and ulnar nerves, continued pain and loss of function of the arm, infection, bleeding, need for further surgery. She is okay with that and signed the consent. SURGEON: Selvin Lopes DO DESCRIPTION OF THE PROCEDURE: The patient was taken to the operative suite, laid in supine position, given general anesthetic and LMA was placed. The patient was given 2 grams of Ancef preoperatively. The right upper extremity was prepped and draped in sterile fashion. A timeout was performed, everyone was agreed to the correct side, site and patient and procedure. I then began by exsanguinating the right upper extremity with an Esmarch, tourniquet was inflated to 250 mmHg, was up for 24 minutes. I then did the carpal tunnel first made a small incision over the volar wrist centered over the palmaris longus tendon. I made careful dissection down to the median nerve. Release of forearm fascia on top of it from an incision from distal to proximal and then put in the dilators and brought in the sheath. I then brought in the camera and inspected the transverse carpal ligament and probed it and rasped to ensure there was no transligamentous nerve. I did not see any, brought the blade and raise it up and transected the transverse carpal ligament and cut through it. I then herniated down into the carpal tunnel. I then used the long end of Will and yovany and ensured there was no remaining fibers and there were not. I then dressed the fourth and fifth A1 pulleys made incision in the distal wrist crease and then with Lula blunt dissection down to the A1 pulleys of each and released under direct visualization with the scissors and pulled the flexor tendons up and ensure there was no catching, there was not. This was done on the ring and small finger, both. I then addressed the cubital tunnel and made an incision over the ulnar nerve just to the inferior aspect of the medial epicondyle of the elbow and dissected down to the ulnar nerve released it proximally and distally. This was severely pinched and then tourniquet was let down. Any bleeding was coagulated with bipolar. I then injected each site with 20 mL total on all of it with 0.25% Marcaine with epinephrine and then closed the cubital tunnel with 3-0 Vicryl in inverted interrupted fashion and 4-0 Monocryl run on the skin. Then, the carpal tunnel with 5-0 Monocryl in inverted interrupted fashion in the palm, fourth and fifth trigger fingers with 4-0 nylon in a running stitch. Steri-Strips were placed on the cubital and carpal tunnel and then dressed with Adaptic, 4 x 4s, cast padding, and a Coban lightly wrapped on each of the sites. She was awakened and taken to recovery in stable condition. BLOOD LOSS: Minimal. COMPLICATIONS: None. OPERATIVE REPORT [id number] DIVYA PITT TRANSINT:[id number] Voice Confirmation ID: [id number] DOCUMENT ID: [id number] SELVIN LOPES DO at 0701 CC: [id number] DICTATION DATE: 05/21/20 121 MANUAL EQUIPMENT MECHANIC: 05/21/201910 [facility] 05/21/20 [facility] [address] [place] [address]
== END 2020-05-21 14:30 | disposition home or self-care (01) ==
LOC: D.OPS 10:00
PROVIDERS: Anesthesiology; ATTEND Orthopaedic Surgery
DX: M65.341 Trigger finger, right ring finger (principal); M65.351 Trigger finger, right little finger; G56.01 Carpal tunnel syndrome, right upper limb; G56.21 Lesion of ulnar nerve, right upper limb; M79.641 Pain in right hand